=== PATIENT | male | born 1980 | race Caucasian/White ===

== ENCOUNTER 2017-11-10 19:30 | Inpatient (IN) ==
[2017-11-10] MEDS ORDERED: 0.9 % Sodium Chloride 1,000 ML IVC ONE (20:00)
[2017-11-10] MEDS ORDERED: *HR* FentaNYL (PF) 100 MCG/2 ML VIAL IVP ONE ×2 (20:02→23:56)
[2017-11-10 20:23] LABS: Basophils # 0.1 K/mcL (0.0-0.2); Basophils % 0.5 %; Eosinophils # 0.1 K/mcL (0.0-0.6); Eosinophils % 0.8 %; Hematocrit 42.5 % (37.5-50.1); Hemoglobin 14.4 g/dL (12.9-16.9); Immature Granulocytes % 0.7 % (0-4); Lymphocytes % 16.7 %; Mean Corpuscular HGB Conc 33.9 g/dL (31.6-35.5); Mean Corpuscular Hemoglobin 31.3 pg (28.0-33.3); Mean Corpuscular Volume 92.4 fL (83.0-100.0); Mean Platelet Volume 9.7 fL (9.4-12.4); Monocytes # 0.6 K/mcL (0.0-1.3); Monocytes % 4.8 %; Neutrophils # 9.4 K/mcL (1.6-8.9); Platelet Count 279 K/mcL (140-400); Red Cell Distribution Width 12.2 % (11.5-14.5); Segmented Neutrophils % 76.5 %
--- NOTE | 2017-11-10 20:41 | Emergency Department Note ---
Disposition Clinical Impression: Cellulitis of right foot Disposition: Still a Patient Referrals: NONE,PCP [Non-Partnered Physician] - Forms: ED Satisfaction Letter General Adult HPI - General Chief complaint: ED Extremity Problem,Nontraumatic Stated complaint: R gangrene foot Time Seen by Provider: 11/10/17 19:39 Source: patient Mode of arrival: ambulatory Limitations: no limitations Nursing Notes Reviewed: Yes Vital Signs Reviewed: Yes - History of Present Illness HPI Narrative: Patient is a 37-year-old male with a past medical history of type 1 diabetes presenting to the emergency department with complaint of foot wounds on his right foot that of been progressively worsening over the past week. Patient states that they start out as small open areas been slowly have increased in size and began to drain. His attempted to take care of them at home. States this is the first time that this has happened. Denies any fevers or chills however admits to occasional nausea. He states that he was seen at an outside facility yesterday in which they wanted to start an IV on him and can initiate IV antibiotics however that a difficult time starting an IV and the patient left. He denies any IV drug use. Pain Scale: 10 - Related Data Allergies Allergy/AdvReac Type Severity Reaction Status Date / Time Penicillins [PCN] Allergy Rash Verified 06/05/16 17:59 morphine AdvReac See Verified 11/10/17 19:37 Comments All systems ED: reviewed and negative except as stated. Review of Systems: As Per HPI Constitutional: Denies: fever, chills Cardiovascular: Denies: chest pain, palpitations Respiratory: Denies: cough, dyspnea, wheezes Gastrointestinal: Denies: abdominal pain, nausea, vomiting Genitourinary: Denies: urgency, dysuria Musculoskeletal: Denies: back pain, neck pain Integumentary: Reports: lesions (2 lesions on his right foot on the dorsal aspect and the medial aspect). Denies: rash, abrasion Neurological: Denies: headache, weakness Past Medical History - Past Medical History Attestation: Yes The following information was validated with the patient. Medical history: Reports: diabetes, other Psychiatric history: Reports: no psych history - Social History Smoking Status: Current every day smoker Smokeless Tobacco Status: No Alcohol use: Reports: rarely Drug use: Reports: none Physical Exam CONSTITUTIONAL: Alert and oriented X3, well appearing, in no apparent distress. HEAD: Normocephalic; atraumatic. EYES: PERRL, no scleral icterus. NOSE: The nose is normal in appearance without rhinorrhea RESP: Normal chest excursion with respiration; breath sounds clear and equal bilaterally; no wheezes, rhonchi, or rales CARD: Regular rhythm, without murmurs, rub or gallop ABD: Non-distended; non-tender, soft,without rigidity, rebound or guarding SKIN: Normal for age and race; warm and dry; patient has 2 approximately 2 x 2 centimeter lesions one on the dorsal aspect of his foot distally and the other on the medial aspect of his foot that are open, with drainage and a follow-up odor. He has no red streaking or erythema surrounding these regions. - General Limitations: no limitations General appearance: alert, in no apparent distress Course Course Narrative: Plan at this time is to initiate the sepsis protocol. A repeat temperature showed the patient to be febrile. Multiple attempts were required to find an IV that would not below. At this time the patient was initiated on a fluid bolus, since his blood pressure is currently stable there are no plans at this time to do the 30 mL/kgnormal saline fluids. Patient will be started on broad- spectrum antibiotics for diabetic foot ulcer. I do have a mild suspicion that this wound could possibly be from IV drug use given how difficult it is for the nurses to establish an IV. We will also obtain cultures. CT scan of the foot with contrasts also be performed and most likely a podiatry consult. Vital Signs Temperature 99.6 F 11/10/17 19:34 Pulse Rate 90 11/10/17 19:34 Respiratory Rate 18 11/10/17 19:34 Blood Pressure 127/81 11/10/17 19:34 O2 Sat by Pulse Oximetry 99 11/10/17 19:34 Temperature 99.6 F 11/10/17 19:34 Pulse Rate 90 11/10/17 19:34 Respiratory Rate 18 11/10/17 19:34 Blood Pressure 127/81 11/10/17 19:34 O2 Sat by Pulse Oximetry 99 11/10/17 19:34 Oxygen Delivery Oxygen Delivery Room Air Medical Decision Making - Medical Records Medical records reviewed: Yes I reviewed the patient's medical records. - Lab Data Lab results reviewed: Yes I reviewed the patient's lab results. Result diagrams: 11/10/17 20:12 11/10/17 20:12 Lab Results 11/10/17 11/10/17 11/10/17 Range/Units 20:12 20:12 20:12 WBC 12.2 H (4.3-11.1) K/mcL RBC 4.60 (4.19-5.50) M/mcL Hgb 14.4 (12.9-16.9) g/dL Hct 42.5 (37.5-50.1) % MCV 92.4 (83.0-100.0) fL MCH 31.3 (28.0-33.3) pg MCHC 33.9 (31.6-35.5) g/dL RDW 12.2 (11.5-14.5) % Plt Count 279 (140-400) K/mcL MPV 9.7 (9.4-12.4) fL Immature Gran % 0.7 (0-4) % Seg Neutrophils % 76.5 % Lymphocytes % 16.7 % Monocytes % 4.8 % Eosinophils % 0.8 % Basophils % 0.5 % Neutrophils # 9.4 H (1.6-8.9) K/mcL Lymphocytes # 2.0 (0.6-4.6) K/mcL Monocytes # 0.6 (0.0-1.3) K/mcL Eosinophils # 0.1 (0.0-0.6) K/mcL Basophils # 0.1 (0.0-0.2) K/mcL Sodium 130 L (136-145) mEq/L Potassium 4.9 (3.5-5.1) mEq/L Chloride 91 L (98-107) mEq/L Carbon Dioxide 27 (23-29) mEq/L BUN 11 (6-20) mg/dL Creatinine 0.65 L (0.70-1.30) mg/dL Est GFR ( Amer) > 60 (> 60) Est GFR (Non-Af Amer) > 60 (> 60) BUN/Creatinine Ratio 17 (6-26) Glucose 470 H (70-105) mg/dL Calculated Osmolality 290 (280-300) Lactic Acid 1.3 (0.5-2.2) mmol/L Calcium 9.2 (8.6-10.3) mg/dL Phosphorus 2.2 L (2.7-4.5) mg/dL Magnesium 1.8 (1.6-2.6) mg/dL
[2017-11-10 20:42] LABS: BUN/Creatinine Ratio 17 (6-26); Blood Urea Nitrogen 11 mg/dL (6-20); Calcium 9.2 mg/dL (8.6-10.3); Carbon Dioxide 27 mEq/L (23-29); Chloride 91 mEq/L (98-107); Glucose 470 mg/dL (70-105); Magnesium 1.8 mg/dL (1.6-2.6); Osmolality,Calculated 290 (280-300); Phosphorous 2.2 mg/dL (2.7-4.5); Potassium 4.9 mEq/L (3.5-5.1); Sodium 130 mEq/L (136-145); eGFR For African Americans > 60 (> 60); eGFR For Non-African Americans > 60 (> 60)
--- NOTE | 2017-11-10 21:08 | Emergency Department Note ---
Disposition Clinical Impression: Cellulitis of right foot Disposition: Still a Patient Referrals: NONE,PCP [Non-Partnered Physician] - Forms: ED Satisfaction Letter General Adult HPI - General Chief complaint: ED Extremity Problem,Nontraumatic Stated complaint: R gangrene foot Time Seen by Provider: 11/10/17 19:39 Source: patient Limitations: no limitations - History of Present Illness Pain Scale: 10 - Related Data Allergies Allergy/AdvReac Type Severity Reaction Status Date / Time Penicillins [PCN] Allergy Rash Verified 06/05/16 17:59 morphine AdvReac See Verified 11/10/17 19:37 Comments Past Medical History - Past Medical History Medical history: Reports: diabetes, other Psychiatric history: Reports: no psych history - Social History Smoking Status: Current every day smoker Smokeless Tobacco Status: No Alcohol use: Reports: rarely Drug use: Reports: none Physical Exam - General Limitations: no limitations General appearance: alert, in no apparent distress Course Vital Signs Temperature 99.6 F 11/10/17 19:34 Pulse Rate 90 11/10/17 19:34 Respiratory Rate 18 11/10/17 19:34 Blood Pressure 127/81 11/10/17 19:34 O2 Sat by Pulse Oximetry 99 11/10/17 19:34 Temperature 99.6 F 11/10/17 19:34 Pulse Rate 90 11/10/17 19:34 Respiratory Rate 18 11/10/17 19:34 Blood Pressure 127/81 11/10/17 19:34 O2 Sat by Pulse Oximetry 99 11/10/17 19:34 Oxygen Delivery Oxygen Delivery Room Air Medical Decision Making - Lab Data Result diagrams: 11/10/17 20:12 11/10/17 20:12 Lab Results 11/10/17 11/10/17 11/10/17 Range/Units 20:12 20:12 20:12 WBC 12.2 H (4.3-11.1) K/mcL RBC 4.60 (4.19-5.50) M/mcL Hgb 14.4 (12.9-16.9) g/dL Hct 42.5 (37.5-50.1) % MCV 92.4 (83.0-100.0) fL MCH 31.3 (28.0-33.3) pg MCHC 33.9 (31.6-35.5) g/dL RDW 12.2 (11.5-14.5) % Plt Count 279 (140-400) K/mcL MPV 9.7 (9.4-12.4) fL Immature Gran % 0.7 (0-4) % Seg Neutrophils % 76.5 % Lymphocytes % 16.7 % Monocytes % 4.8 % Eosinophils % 0.8 % Basophils % 0.5 % Neutrophils # 9.4 H (1.6-8.9) K/mcL Lymphocytes # 2.0 (0.6-4.6) K/mcL Monocytes # 0.6 (0.0-1.3) K/mcL Eosinophils # 0.1 (0.0-0.6) K/mcL Basophils # 0.1 (0.0-0.2) K/mcL Sodium 130 L (136-145) mEq/L Potassium 4.9 (3.5-5.1) mEq/L Chloride 91 L (98-107) mEq/L Carbon Dioxide 27 (23-29) mEq/L BUN 11 (6-20) mg/dL Creatinine 0.65 L (0.70-1.30) mg/dL Est GFR ( Amer) > 60 (> 60) Est GFR (Non-Af Amer) > 60 (> 60) BUN/Creatinine Ratio 17 (6-26) Glucose 470 H (70-105) mg/dL Calculated Osmolality 290 (280-300) Lactic Acid 1.3 (0.5-2.2) mmol/L Calcium 9.2 (8.6-10.3) mg/dL Phosphorus 2.2 L (2.7-4.5) mg/dL Magnesium 1.8 (1.6-2.6) mg/dL Attestation Statement - Attestation Attestation: I examined this patient and my medical decision-making was reviewed with the Resident Physician. I agree with the documented findings, disposition and treatment plan as described except to the extent set forth below. 37 year old male presents to the ED with complaints of right foot infection. He is a type 1 Diabetic and denies puntcture wound or IVDA but has two areas on his right foot one under the medial and lateral malleolus which has increased whitish/green dischage and is febrile to 100.5. wEw ill start sepsis workup and IVF resusitiation with vanco/zosyn therapy and tylenol and admit to medicine with podiatry consult
[2017-11-10] MEDS ORDERED: MetroNIDAZOLE 500 MG/100 ML 500 MG/100 ML BAG IVPB ONE (21:10)
[2017-11-10] MEDS ORDERED: Levofloxacin 750 MG/150 ML 750 MG/150 ML BAG IVPB ONE (21:10)
[2017-11-10] MEDS ORDERED: Acetaminophen 325 MG TABLET PO ONE (21:11)
[2017-11-10] MEDS ORDERED: Insulin Regular, Human 100 UNIT/ML SQ ONE (23:55)
--- NOTE | 2017-11-11 00:20 | Emergency Department Note ---
Disposition Clinical Impression: Cellulitis of right foot Disposition: Admitted As Inpatient Condition: Good Instructions: Cellulitis (ED) Referrals: NONE,PCP [Non-Partnered Physician] - Forms: ED Satisfaction Letter Time of Disposition: 12:00 Extremity Problem HPI - General Chief complaint: ED Extremity Problem,Nontraumatic Stated complaint: R gangrene foot Time Seen by Provider: 11/10/17 19:39 Source: patient Mode of arrival: ambulatory Limitations: no limitations Nursing Notes Reviewed: Yes Vital Signs Reviewed: Yes - History of Present Illness Pain Scale: 7 - Related Data Allergies Allergy/AdvReac Type Severity Reaction Status Date / Time Penicillins [PCN] Allergy Rash Verified 06/05/16 17:59 morphine AdvReac See Verified 11/10/17 19:37 Comments Constitutional: Denies: fever, chills Cardiovascular: Denies: chest pain, palpitations Respiratory: Denies: cough, dyspnea, wheezes Gastrointestinal: Denies: abdominal pain, nausea, vomiting Genitourinary: Denies: urgency, dysuria Musculoskeletal: Denies: back pain, neck pain Integumentary: Reports: lesions (2 lesions on his right foot on the dorsal aspect and the medial aspect). Denies: rash, abrasion Neurological: Denies: headache, weakness Past Medical History - Past Medical History Medical history: Reports: diabetes, other Psychiatric history: Reports: no psych history - Social History Smoking Status: Current every day smoker Smokeless Tobacco Status: No Alcohol use: Reports: rarely Drug use: Reports: none Physical Exam - General Limitations: no limitations General appearance: alert, in no apparent distress Course Vital Signs Temperature 99.6 F 11/10/17 19:34 Pulse Rate 90 11/10/17 19:34 Respiratory Rate 18 11/10/17 19:34 Blood Pressure 127/81 11/10/17 19:34 O2 Sat by Pulse Oximetry 99 11/10/17 19:34 Temperature 99.8 F H 11/10/17 23:51 Pulse Rate 94 11/10/17 23:51 Respiratory Rate 18 11/10/17 23:51 Blood Pressure 137/79 11/10/17 23:51 O2 Sat by Pulse Oximetry 97 11/10/17 23:51 Oxygen Delivery Oxygen Delivery Room Air Extremity Problem, Nontraumati - MDM Narrative Medical decision making narrative: 37-year-old male received in sign out at [address] results, reevaluation and disposition. CT shows cellulitis without evidence of osteomyelitis or drainable abscess. Patient already received vancomycin, Levaquin and Flagyl IV. Patient comfortable with the plan for admission to the hospital for continuation of his care. Patient is hyperglycemic however he does not have an anion gap. Patient given insulin subcutaneous in the emergency department. He will be admitted for further care and evaluation. - Lab Data Result diagrams: 11/10/17 20:12 11/10/17 20:12 Lab Results 11/10/17 11/10/17 11/10/17 Range/Units 20:12 20:12 20:12 WBC 12.2 H (4.3-11.1) K/mcL RBC 4.60 (4.19-5.50) M/mcL Hgb 14.4 (12.9-16.9) g/dL Hct 42.5 (37.5-50.1) % MCV 92.4 (83.0-100.0) fL MCH 31.3 (28.0-33.3) pg MCHC 33.9 (31.6-35.5) g/dL RDW 12.2 (11.5-14.5) % Plt Count 279 (140-400) K/mcL MPV 9.7 (9.4-12.4) fL Immature Gran % 0.7 (0-4) % Seg Neutrophils % 76.5 % Lymphocytes % 16.7 % Monocytes % 4.8 % Eosinophils % 0.8 % Basophils % 0.5 % Neutrophils # 9.4 H (1.6-8.9) K/mcL Lymphocytes # 2.0 (0.6-4.6) K/mcL Monocytes # 0.6 (0.0-1.3) K/mcL Eosinophils # 0.1 (0.0-0.6) K/mcL Basophils # 0.1 (0.0-0.2) K/mcL Sodium 130 L (136-145) mEq/L Potassium 4.9 (3.5-5.1) mEq/L Chloride 91 L (98-107) mEq/L Carbon Dioxide 27 (23-29) mEq/L BUN 11 (6-20) mg/dL Creatinine 0.65 L (0.70-1.30) mg/dL Est GFR ( Amer) > 60 (> 60) Est GFR (Non-Af Amer) > 60 (> 60) BUN/Creatinine Ratio 17 (6-26) Glucose 470 H (70-105) mg/dL Calculated Osmolality 290 (280-300) Lactic Acid 1.3 (0.5-2.2) mmol/L Calcium 9.2 (8.6-10.3) mg/dL Phosphorus 2.2 L (2.7-4.5) mg/dL Magnesium 1.8 (1.6-2.6) mg/dL
[2017-11-11] MEDS ORDERED: Acetaminophen 325 MG TABLET PO PRN (00:46)
[2017-11-11] MEDS ORDERED: Naloxone 0.4 MG/ML INJ IVP PRN (00:46)
[2017-11-11] MEDS ORDERED: D5% in Water 1,000 ML IVC PRN (00:58)
[2017-11-11] MEDS ORDERED: Dextrose Gel 15 GM PO PRN ×2 (00:58)
[2017-11-11] MEDS ORDERED: *HR* Dextrose 50 % in Water (Syg) 50 ML SYRINGE IVP PRN (00:58)
[2017-11-11] MEDS ORDERED: 0.9 % Sodium Chloride 1,000 ML IVC SCH (01:00)
[2017-11-11] MEDS ORDERED: Vancomycin (wt based) 1,000 MG VIAL IVPB SCH (01:00)
[2017-11-11 01:01] LABS: Bilirubin,Urine Negative (Negative); Blood,Urine Negative (Negative); Clarity,Urine Clear (Clear); Color,Urine Yellow (Yellow); Glucose,Urine (UA) >=1000 mg/dL (Normal); Ketones,Urine >=160 mg/dL (Negative); Leukocyte Esterase,Urine Negative (Negative); Nitrite,Urine Negative (Negative); Protein,Urine Negative (Neg-Trace); Specific Gravity,Urine > 1.030 (1.010-1.025); Urobilinogen,Urine Normal (Normal)
--- NOTE | 2017-11-11 01:17 | Internal Med History&Physical ---
<MatthewRoman Marva - Last Filed: 11/11/17 04:00> Date of Encounter: 11/11/17 Time of Encounter: 00:10 Assessment and Plan (1) Sepsis Current visit: Yes Status: Acute 2 SIRS criteria: HR and leukocytosis. Source of infection: right LE cellulitis CT of the right foot shows ulceration around the head of the fifth metatarsal, consistent with cellulitis. No fluid or osseous erosion to suggest osteomyelitis CBC shows mild leukocytosis at 12.2. Highest temp 99.8. HR 90's. No tachypnea or hypotension. Lactic acid normal. No Hypotension. Blood cultures pending Patient received vancomycin, Levaquin, and Flagyl in the emergency department Will continue vancomycin and provide pain medication Qualifiers: Sepsis type: sepsis due to unspecified organism Qualified Code(s): A41.9 - Sepsis, unspecified organism (2) Cellulitis of right foot Current visit: Yes Status: Acute 2 wounds of the right foot that are progressively getting worse over the past week, source of infection for sepsis Continue antibiotics as above Will let primary team decide on further consults if necessary (3) Type 1 diabetes mellitus Current visit: Yes Status: Acute Blood glucose in the emergency department is 470. Patient received 10 units of regular Insulin and BG decreased to 300 Pt states he has not had insurance for a long time, therefore he is not been treating his diabetes properly He reports that his insulin dose varies, and he is unable to provide me specific numbers UA is positive for glucose and ketones. Sodium 130. Anion gap with corrected sodium is 18. However the patient is not acidotic with a bicarbonate of 27 Will check A1c and urine microalbumin Will place on weight based basal insulin and low-dose SSI Qualifiers: Diabetes mellitus complication status: with skin complications Diabetes mellitus complication detail: with foot ulcer Qualified Code(s): E10.621 - Type 1 diabetes mellitus with foot ulcer; L97.509 - Non-pressure chronic ulcer of other part of unspecified foot with unspecified severity; L97.509 - Non- pressure chronic ulcer of other part of unspecified foot with unspecified severity; L97.509 - Non-pressure chronic ulcer of other part of unspecified foot with unspecified severity; L97.509 - Non-pressure chronic ulcer of other part of unspecified foot with unspecified severity (4) DVT prophylaxis Current visit: Yes Status: Acute SCDs. Patient is young and lower risk for DVT. If he remains in the hospital longer than 24 hours, he may need pharmacologic prophylaxis Internal Medicine - H&P: HPI Chief complaint: Right foot wound infection Admitted From: Emergency Dept History of present illness: Mr. Iglesias is a 37 year old male with PMH of type 1 diabetes and tobacco use, presents the emergency department with concerns of a right foot wound infection. He states he first noticed the wounds about 1 week ago and they have progressively been getting worse over this time, with increasing size, pain and white/green discharge. He denies any trauma to the foot. He denies IV drug abuse. Associated symptoms include chills, diaphoresis, tingling in his toes, and nausea/vomiting. He denies fevers, loss of sensation, weakness, or inability to move his toes foot or ankle. He states he has never had anything like this before. He went to another hospital yesterday and they wanted to start IV antibiotics, but they had difficulty initiating the IV, so the patient left. He denies other symptoms, denies headache, change in vision, chest pain, dyspnea, cough, abdominal pain, change in bowels, or dysuria. Past Med Surg Social Fam HX - Past Medical History Medical history: diabetes, other Psychiatric history: no psych history - Social History Smoking Status: Current every day smoker Smokeless Tobacco Status: No Alcohol use: rarely Drug use: none Internal Medicine - H&P: Meds BuPROPion XL (24 HR) [Wellbutrin XL] 150 mg PO DAILY 11/11/17 [History] Buspirone HCl [Buspar] 10 mg PO BID 11/11/17 [History] Escitalopram [Lexapro] 5 mg PO DAILY 11/11/17 [History] Insulin ASPART [NovoLOG] 0 unit SQ TID PRN 11/11/17 [History] Insulin Glargine [Lantus] 40 unit IJ HS 11/11/17 [History] 3 Allergy/AdvReac Type Severity Reaction Status Date / Time Penicillins [PCN] Allergy Rash Verified 11/11/17 08:27 morphine AdvReac Anaphylaxis Verified 11/11/17 08:27 All Systems PM: A 10-system review of systems was performed and is negative for pertinent findings except as documented above in the HPI. - Constitutional Vitals: Temp Pulse Resp BP Pulse Ox 99.8 F H 94 19 143/84 97 11/10/17 23:51 11/10/17 23:51 11/11/17 00:38 11/11/17 00:38 11/10/17 23:51 General appearance: Present: mild distress, A&O X 3 Exam: Diaphoretic - Head Head exam: Present: atraumatic, normocephalic - Eye Eye exam: Present: conjuntiva pink, sclera anicteric - Neck Neck exam general surgery: Present: supple, trachea midline. Absent: lymphadenopathy - Respiratory Respiratory exam: Present: CTAB. Absent: accessory muscle use, rales, rhonchi, wheezes - Cardiovascular Cardiovascular exam: Present: RRR, +S1, +S2. Absent: diastolic murmur, systolic murmur - GI/Abdominal GI/Abdominal exam: Present: normal bowel sounds, soft, no peritoneal signs. Absent: distended, tenderness - Extremities Exam Extremities exam: Present: normal capillary refill, tenderness, warm, radial pulses palpable and symmetrical. Absent: calf tenderness, cyanotic, joint swelling, pedal edema Additional comments: Right foot with 2 wounds, one located on the medial aspect of the foot, and the other located on the dorsum of the foot. Both are approximately 2-3X2-3 cm in diameter, with warmth, swelling, and adjacent mild erythema. The wound on the medial aspect is draining a white colored discharge. No streaking or crepitus noted. He has normal motion and strength of his toes. - Neurological Exam Neurological exam: Present: CN II-XII intact, oriented X3, no focal deficits. Absent: facial droop, speech deficit - Skin Skin exam: Present: diaphoretic, dry Internal Med - H&P Results - Labs CBC & Chem 7: 11/10/17 20:12 11/10/17 20:12 Labs: Urine 11/11/17 Range/Units 00:52 Urine Color Yellow (Yellow) Urine Clarity Clear (Clear) Urine pH 6.0 (5.0-8.0) pH Units Ur Specific [place] > 1.030 H (1.010-1.025) Urine Protein Negative (Neg-Trace) mg/dL Urine Glucose (UA) >=1000 H (Normal) mg/dL <Olivia Dutta - Last Filed: 03/26/18 21:01> Date of Encounter: 11/10/17 Internal Medicine - H&P: HPI History of present illness: Mr. Iglesias is a 37 year old male All Systems PM: A 10-system review of systems was performed and is negative for pertinent findings except as documented above in the HPI. - Constitutional Vitals: Temp Pulse Resp BP Pulse Ox 98.2 F 71 16 136/75 100 11/11/17 19:49 11/11/17 19:49 11/11/17 19:49 11/11/17 19:49 11/11/17 19:49 Internal Med - H&P Results - Labs CBC & Chem 7: 11/11/17 05:07 11/11/17 13:00 Labs: Short CBC 11/11/17 Range/Units 05:07 WBC 12.0 H (4.3-11.1) K/mcL Hgb 14.2 (12.9-16.9) g/dL Hct 43.8 (37.5-50.1) % Plt Count 352 (140-400) K/mcL Neutrophils # 8.9 (1.6-8.9) K/mcL BMP 11/11/17 11/11/17 05:07 13:00 Sodium 130 L 132 L Potassium 4.9 3.8 Chloride 93 L 97 L Carbon Dioxide 17 L 28 BUN 11 10 Creatinine 0.72 0.67 L Glucose 451 H 148 H Calcium 8.7 9.0 Urine 11/11/17 Range/Units 00:52 Urine Color Yellow (Yellow) Urine Clarity Clear (Clear) Urine pH 6.0 (5.0-8.0) pH Units Ur Specific [place] > 1.030 H (1.010-1.025) Urine Protein Negative (Neg-Trace) mg/dL Urine Glucose (UA) >=1000 H (Normal) mg/dL - ABG Interpretation ABG results: 11/11/17 07:11 ABG pH 7.39 ABG pCO2 28 L ABG pO2 98 ABG HCO3 17 L ABG Total CO2 18 L ABG O2 Saturation 98 ABG Base Excess -6 L - Attending Attestation I personally and independently interviewed and examined the patient on with the resident. I reviewed the patient's medical record with the resident. I am in agreement with the resident assessment and proposed treatment plan. I have discussed my finding and recommendation with the patient and answer all questions. The formerly [facility] medical records was admitted to accurately reflect the encounter.
[2017-11-11] MEDS: *HR* OxyCODONE Immed Rel 5 MG TABLET PO PRN ×4 (02:00→21:00)
[2017-11-11 05:46] LABS: Basophils # 0.1 K/mcL (0.0-0.2); Basophils % 0.7 %; Eosinophils % 0.1 %; Hematocrit 43.8 % (37.5-50.1); Hemoglobin 14.2 g/dL (12.9-16.9); Immature Granulocytes % 1.6 % (0-4); Lymphocytes # 2.3 K/mcL (0.6-4.6); Lymphocytes % 18.9 %; Mean Corpuscular HGB Conc 32.4 g/dL (31.6-35.5); Mean Corpuscular Hemoglobin 30.5 pg (28.0-33.3); Mean Corpuscular Volume 94.2 fL (83.0-100.0); Mean Platelet Volume 10.2 fL (9.4-12.4); Monocytes # 0.5 K/mcL (0.0-1.3); Monocytes % 4.2 %; Neutrophils # 8.9 K/mcL (1.6-8.9); Nucleated Red Blood Cells 0.2 /100 WBC (0); Platelet Count 352 K/mcL (140-400); Red Blood Count 4.65 M/mcL (4.19-5.50); Red Cell Distribution Width 12.3 % (11.5-14.5); Segmented Neutrophils % 74.5 %
[2017-11-11] MEDS ORDERED: Insulin LISPRO 300 UNITS/3 ML VIAL SQ ONE (05:48)
[2017-11-11] MEDS ORDERED: Ondansetron 4 MG/2 ML VIAL IVP PRN (05:48)
[2017-11-11] MEDS ORDERED: OXYCODONE Oral CONC 10 MG/0.5 ML ORAL.SYG SL ONE (05:52)
[2017-11-11 05:57] LABS: BUN/Creatinine Ratio 15 (6-26); Blood Urea Nitrogen 11 mg/dL (6-20); Calcium 8.7 mg/dL (8.6-10.3); Carbon Dioxide 17 mEq/L (23-29); Chloride 93 mEq/L (98-107); Glucose 451 mg/dL (70-105); Osmolality,Calculated 289 (280-300); Potassium 4.9 mEq/L (3.5-5.1); Sodium 130 mEq/L (136-145); eGFR For African Americans > 60 (> 60); eGFR For Non-African Americans > 60 (> 60)
[2017-11-11] MEDS ORDERED: Insulin LISPRO 300 UNITS/3 ML VIAL SQ SCH (06:00)
[2017-11-11] MEDS ORDERED: Cefepime HCl 2,000 MG in Water for inj. (sterile) 20 ML IVP SCH (06:00)
[2017-11-11 07:18] LABS: ABG Base Excess -6 mEq/L (-2 to 3); ABG HCO3 17 mEq/L (21-27); ABG Oxygen Saturation 98 % (95-98); ABG PCO2 28 mmHg (35-45); ABG PH 7.39 pH Units (7.32-7.45); ABG PO2 98 mmHg (85-104); ABG TCO2 18 mEq/L (20-26)
[2017-11-11] MEDS ORDERED: Insulin DETEMIR 100 UNIT/ML X5UNITS SQ ONE (08:17)
[2017-11-11] MEDS ORDERED: Insulin LISPRO 300 UNITS/3 ML VIAL SQ STA (08:18)
[2017-11-11] MEDS: Insulin LISPRO 300 UNITS/3 ML VIAL SQ SCH ×6 (08:25→21:05)
--- NOTE | 2017-11-11 09:57 | Internal Med Progress Note ---
Date of Encounter: 11/11/17 Time of Encounter: 09:54 - Assessment and plan (1) Sepsis Current Visit: Yes Status: Acute Assessment and plan: sepsis secondary to right fuoo ulcer/acute cellulitis COntinue Vancomycin day #2, add cefepime Podiatry consult wound culture IVF Qualifiers: Sepsis type: sepsis due to unspecified organism Qualified Code(s): A41.9 - Sepsis, unspecified organism (2) Foot ulcer due to secondary DM Current Visit: Yes Status: Acute (3) Cellulitis of right foot Current Visit: Yes Status: Acute (4) Tobacco abuse Current Visit: Yes Status: Acute Assessment and plan: smoking cessation counseling , nicotine patch (5) Type 1 diabetes mellitus Current Visit: Yes Status: Acute Assessment and plan: continue with levemir 22 Units QHS add 8 units of humalog TID plus sliding scale B OH butiric acid pending recheck BMP Latest AG December start insulin drip Qualifiers: Diabetes mellitus complication status: with skin complications Diabetes mellitus complication detail: with foot ulcer Qualified Code(s): E10.621 - Type 1 diabetes mellitus with foot ulcer; L97.509 - Non-pressure chronic ulcer of other part of unspecified foot with unspecified severity; L97.509 - Non- pressure chronic ulcer of other part of unspecified foot with unspecified severity; L97.509 - Non-pressure chronic ulcer of other part of unspecified foot with unspecified severity; L97.509 - Non-pressure chronic ulcer of other part of unspecified foot with unspecified severity (6) Leukocytosis Current Visit: Yes Status: Acute Qualifiers: Leukocytosis type: unspecified Qualified Code(s): D72.829 - Elevated white blood cell count, unspecified - Subjective Interval history: Known quantified fevers at home, denies any chest pressures or breath, is tachycardic, denies any abdominal pain or dysuria. Complains of right foot pain - Constitutional Vitals: Temp Pulse Resp BP Pulse Ox 98.4 F 108 16 132/70 96 11/11/17 07:30 11/11/17 07:30 11/11/17 07:30 11/11/17 07:30 11/11/17 08:46 General appearance: Present: mild distress, A&O X 3 - Head Head exam: Present: atraumatic, normocephalic - Eye Eye exam: Present: PERRL, conjuntiva pink, sclera anicteric Pupils: Present: PERRL - Neck Neck exam general surgery: Present: supple, trachea midline. Absent: lymphadenopathy - Respiratory Respiratory exam: Present: CTAB. Absent: accessory muscle use, rales, rhonchi, wheezes - Cardiovascular Cardiovascular exam: Present: RRR, +S1, +S2, tachycardia. Absent: diastolic murmur, gallop, rubs, systolic murmur - GI/Abdominal GI/Abdominal exam: Present: normal bowel sounds, soft, no peritoneal signs. Absent: distended, tenderness - Extremities Exam Extremities exam: Present: warm, radial pulses palpable and symmetrical. Absent : calf tenderness, cyanotic, pedal edema Additional comments: right foot 3 x 2 cm ulcer with drainage and surrounding erythema - Neurological Exam Neurological exam: Present: CN II-XII intact, oriented X3, no focal deficits. Absent: pronater drift, facial droop, speech deficit - Skin Skin exam: Present: dry, intact Internal Medicine: Result - Labs CBC & Chem 7: 11/11/17 05:07 11/11/17 05:07 Labs: Short CBC 11/11/17 Range/Units 05:07 WBC 12.0 H (4.3-11.1) K/mcL Hgb 14.2 (12.9-16.9) g/dL Hct 43.8 (37.5-50.1) % Plt Count 352 (140-400) K/mcL Neutrophils # 8.9 (1.6-8.9) K/mcL BMP 11/11/17 05:07 Sodium 130 L Potassium 4.9 Chloride 93 L Carbon Dioxide 17 L BUN 11 Creatinine 0.72 Glucose 451 H Calcium 8.7 Urine 11/11/17 Range/Units 00:52 Urine Color Yellow (Yellow) Urine Clarity Clear (Clear) Urine pH 6.0 (5.0-8.0) pH Units Ur Specific [place] > 1.030 H (1.010-1.025) Urine Protein Negative (Neg-Trace) mg/dL Urine Glucose (UA) >=1000 H (Normal) mg/dL - ABG Interpretation ABG results: ABG ABG pH 7.39 pH Units (7.32-7.45) 11/11/17 07:11 ABG pCO2 28 mmHg (35-45) L 11/11/17 07:11 ABG pO2 98 mmHg (85-104) 11/11/17 07:11 ABG O2 Saturation 98 % (95-98) 11/11/17 07:11 Consult Discharge Plan - Plan Referrals: Gisele Valdez, [employer] TECHNICIAN [Primary Care Provider] -
[2017-11-11] MEDS ORDERED: Cefepime HCl 1,000 MG in Water for inj. (sterile) 10 ML IVP SCH (10:00)
[2017-11-11 10:27] LABS: Estimated Average Glucose 272 mg/dl; Hemoglobin A1C 11.1 %
[2017-11-11] MEDS: Nicotine 14 MG PATCH.TD24 TD SCH (11:27)
[2017-11-11] MEDS: Cefepime HCl 1,000 MG in Water for inj. (sterile) 20 ML 10 ML IVP SCH ×2 (11:27→17:22)
[2017-11-11] MEDS: 0.9 % Sodium Chloride 1,000 ML IVC SCH ×2 (12:05→17:39)
[2017-11-11] MEDS: traMADol 50 MG TABLET PO PRN (12:11)
[2017-11-11 12:48] LABS: Creatinine,Urine 64 mg/dL; Microalbumin,Urine < 7 mg/L
[2017-11-11 13:30] LABS: BUN/Creatinine Ratio 15 (6-26); Blood Urea Nitrogen 10 mg/dL (6-20); Carbon Dioxide 28 mEq/L (23-29); Chloride 97 mEq/L (98-107); Glucose 148 mg/dL (70-105); Osmolality,Calculated 276 (280-300); Potassium 3.8 mEq/L (3.5-5.1); Sodium 132 mEq/L (136-145); eGFR For African Americans > 60 (> 60); eGFR For Non-African Americans > 60 (> 60)
[2017-11-11] MEDS: *HR* Heparin 5,000 UNIT/ML VIAL SQ SCH (17:23)
[2017-11-11] MEDS: Insulin DETEMIR 100 UNIT/ML X5UNITS SQ SCH (21:01)
--- NOTE | 2017-11-11 21:40 | Podiatry Consult Note ---
Date of Encounter: 11/11/17 Time of Encounter: 21:37 Assessment and Plan (1) Cellulitis of right foot Current visit: Yes Status: Acute At this time the patient was instructed that he has significant necrotic tissue on both feet. The patient was instructed that the necrotic tissue is in need of debridement. The patient was also instructed to begin caring for his diabetes more appropriately and smoking less or quitting. Patient was instructed that his wounds will likely not heal unless he makes some major changes in his life. The patient was instructed that due to his current blood glucose and smoking his body is significantly inhibited and his immune system is weak and his potential for healing is also minimal. The patient was instructed that the surgical intervention would be irrigation and debridement of the ulceration sites with possible bone biopsy and application of wound VAC all right foot. The patient was instructed that this is a salvage procedure and that foot or leg amputation may be necessary if this is not successful. Patient was informed of the risks and complications of surgery. These may include but are not limited to the following; nerve damage, numbness, tingling, RSD/CRPS, loss of motor function, loss of toe, loss of limb, loss of life, ischemia, wound healing issues, infection, scarring, keloid formation, continued pain, arthritis, non-union, mal-union, prominent hardware, displaced hardware, reaction to hardware, the need to remove hardware, bruising, continued limp, the need for future surgery, over correction, under correction, chronic swelling, the need for physical therapy, stiffness of joints, ulceration , slow healing, wound dehiscence, reaction to implant, reaction to sutures. The patient was informed of the possible conservative treatments available which may include but are not limited to the following: Orthotics, bracing, non -weight bearing, physical therapy, padding, taping, steroid injections, NSAIDS, casting. The patient was given the option to seek a second opinion. It was explained that surgery is an art and not an exact science therefore results cannot be guaranteed. All the patients questions and concerns were addressed. Patient agrees to have the surgery despite the possible risks and complications. Absolutely no guarantees were given or implied. History of Present Illness Chief complaint: Right foot ulceration HPI: Mr. Iglesias is a 37 year old male who relates that he does not control his diabetes very well. The patient relates that he has had ulcers on his feet which have become more and more painful. Patient relates difficulty walking due to pain. Patient denies any other pedal complaints. Past Med Surg Social Fam HX - Past Medical History Medical history: diabetes, other Psychiatric history: no psych history - Social History Smoking Status: Current every day smoker Packs per day: 0.5 Smokeless Tobacco Status: No Alcohol use: rarely Drug use: none Medications and Allergies BuPROPion XL (24 HR) [Wellbutrin XL] 150 mg PO DAILY 11/11/17 [History] Buspirone HCl [Buspar] 10 mg PO BID 11/11/17 [History] Escitalopram [Lexapro] 5 mg PO DAILY 11/11/17 [History] Insulin ASPART [NovoLOG] 0 unit SQ TID PRN 11/11/17 [History] Insulin Glargine [Lantus] 40 unit IJ HS 11/11/17 [History] 3 Allergy/AdvReac Type Severity Reaction Status Date / Time Penicillins [PCN] Allergy Rash Verified 11/11/17 08:27 morphine AdvReac Anaphylaxis Verified 11/11/17 08:27 All Systems Reviewed: The remainder of the systems were reviewed and are negative Physical Exam - Constitutional Vitals: Temp Pulse Resp BP Pulse Ox 98.2 F 71 16 136/75 100 11/11/17 19:49 11/11/17 19:49 11/11/17 19:49 11/11/17 19:49 11/11/17 19:49 Exam: Pedal pulses are palpable. Capillary fill time is intact to the digits. There are 2 large ulcerations on the right foot, 1 near the medial malleolus and one near the metatarsal heads. Both the ulcerations are malodorous with periwound erythema. The ulcerations measure approximately 3 cm in diameter and have a boggy depth difficult to determine at this time. There is purulence from the ulcers. There is noted to be significant amounts of necrotic tissue overlying the ulcerations. Sensation significantly decreased consistent with peripheral neuropathy. Patient is able to dorsiflex and plantarflex his ankles and feet. Radiographic exam demonstrates tissue loss but no current osteomyelitis... please see official reports for details. Results - Labs Result Diagrams: 11/11/17 05:07 11/11/17 13:00 Labs: Abnormal lab results WBC 12.0 K/mcL (4.3-11.1) H 11/11/17 05:07 Nucleated RBCs/100 WBC 0.2 /100 WBC (0) H 11/11/17 05:07 ABG pCO2 28 mmHg (35-45) L 11/11/17 07:11 ABG HCO3 17 mEq/L (21-27) L 11/11/17 07:11 ABG Total CO2 18 mEq/L (20-26) L 11/11/17 07:11 ABG Base Excess -6 mEq/L (-2 to 3) L 11/11/17 07:11 Sodium 132 mEq/L (136-145) L 11/11/17 13:00 Chloride 97 mEq/L (98-107) L 11/11/17 13:00 Creatinine 0.67 mg/dL (0.70-1.30) L 11/11/17 13:00 Glucose 148 mg/dL (70-105) H 11/11/17 13:00 POC Glucose 182 (58-89) H 11/11/17 16:21 Hemoglobin A1c 11.1 % (-5.6) H 11/11/17 05:07 Calculated Osmolality 276 (280-300) L 11/11/17 13:00 Phosphorus 2.2 mg/dL (2.7-4.5) L 11/10/17 20:12 Beta-Hydroxybutyric Acd > 2.00 mmol/L (0.02-0.27) H 11/11/17 08:27 Ur Specific [place] > 1.030 (1.010-1.025) H 11/11/17 00:52 Urine Glucose (UA) >=1000 mg/dL (Normal) H 11/11/17 00:52 Urine Ketones >=160 mg/dL (Negative) H 11/11/17 00:52 H & H 11/11/17 Range/Units 05:07 Hgb 14.2 (12.9-16.9) g/dL Hct 43.8 (37.5-50.1) % All other labs normal. Consult Discharge Plan - Plan Referrals: Narcisa Hummel CNP [Partnered Physician] - 11/20/17 2:00 pm (Please bring your photo ID, insurance card, and any medications you are on. If you need to cancel please give a 24 hour notice. Thank you)
[2017-11-12] MEDS: 0.9 % Sodium Chloride 1,000 ML IVC SCH (00:29)
[2017-11-12] MEDS: *HR* OxyCODONE Immed Rel 5 MG TABLET PO PRN ×4 (03:29→22:37)
[2017-11-12] MEDS: Cefepime HCl 1,000 MG in Water for inj. (sterile) 20 ML 10 ML IVP SCH ×2 (05:31→18:56)
[2017-11-12] MEDS: *HR* Heparin 5,000 UNIT/ML VIAL SQ SCH ×2 (05:32→18:54)
[2017-11-12 06:23] LABS: Alanine Aminotransferase 26 Units/L (7-52); Albumin/Globulin Ratio 1.1 (1.1-2.2); Alkaline Phosphatase 68 Units/L (34-104); Aspartate Amino Transferase 28 Units/L (13-39); BUN/Creatinine Ratio 22 (6-26); Bilirubin,Total 0.5 mg/dL (0.3-1.0); Blood Urea Nitrogen 13 mg/dL (6-20); Calcium 8.5 mg/dL (8.6-10.3); Carbon Dioxide 21 mEq/L (23-29); Chloride 106 mEq/L (98-107); Globulin 2.8 g/dL (2.4-3.5); Glucose 123 mg/dL (70-105); Osmolality,Calculated 283 (280-300); Sodium 136 mEq/L (136-145); Total Protein 5.8 g/dL (6.4-8.9); eGFR For African Americans > 60 (> 60); eGFR For Non-African Americans > 60 (> 60)
[2017-11-12 06:24] LABS: Potassium 5.1 mEq/L (3.5-5.1)
[2017-11-12] MEDS: Insulin LISPRO 300 UNITS/3 ML VIAL SQ SCH ×7 (07:44→20:55)
[2017-11-12] MEDS: traMADol 50 MG TABLET PO PRN ×3 (07:50→20:55)
[2017-11-12] MEDS: Nicotine 14 MG PATCH.TD24 TD SCH (07:51)
[2017-11-12] MEDS: BuPROPion XL (24 HR) 150 MG TABLET PO SCH (07:51)
--- NOTE | 2017-11-12 13:53 | Internal Med Progress Note ---
Date of Encounter: 11/12/17 Time of Encounter: 13:51 - Assessment and plan (1) Sepsis Current Visit: Yes Status: Acute Assessment and plan: 2 SIRS criteria: HR and leukocytosis. Source of infection: right LE cellulitis CT of the right foot shows ulceration around the head of the fifth metatarsal, consistent with cellulitis. No fluid or osseous erosion to suggest osteomyelitis CBC shows mild leukocytosis at 12.2. Highest temp 99.8. HR 90's. No tachypnea or hypotension. Lactic acid normal. No Hypotension. Blood cultures pending Patient received vancomycin, Levaquin, and Flagyl in the emergency department - Currently hemodynamically stable. - Wound culture: Yeast growing. possibly contaminate - start Micafungin and DC if tissue biopsy comes back negative. - Blood culture 11/10/17: no growth to date. - Continue Vacomycin, Cefepime - Podiatry consulted, recommendations apprecaited. Likely to have irrigation and debridement of ulceration sites with wound VAC application. Qualifiers: Sepsis type: sepsis due to unspecified organism Qualified Code(s): A41.9 - Sepsis, unspecified organism (2) Cellulitis of right foot Current Visit: Yes Status: Acute (3) Foot ulcer due to secondary DM Current Visit: Yes Status: Acute (4) Leukocytosis Current Visit: Yes Status: Acute Qualifiers: Leukocytosis type: unspecified Qualified Code(s): D72.829 - Elevated white blood cell count, unspecified (5) Tobacco abuse Current Visit: Yes Status: Acute (6) Type 1 diabetes mellitus Current Visit: Yes Status: Acute Assessment and plan: evemir 22 Units QHS 8 units of humalog TID plus sliding scale Patient NPO - If patient is NPO at midnight then give 1/2 dose of Levemir (11 units) at night time. Qualifiers: Diabetes mellitus complication status: with skin complications Diabetes mellitus complication detail: with foot ulcer Qualified Code(s): E10.621 - Type 1 diabetes mellitus with foot ulcer; L97.509 - Non-pressure chronic ulcer of other part of unspecified foot with unspecified severity; L97.509 - Non- pressure chronic ulcer of other part of unspecified foot with unspecified severity; L97.509 - Non-pressure chronic ulcer of other part of unspecified foot with unspecified severity; L97.509 - Non-pressure chronic ulcer of other part of unspecified foot with unspecified severity (7) DVT prophylaxis Current Visit: Yes Status: Acute - Subjective Interval history: No acute events overnight. - Constitutional Vitals: Temp Pulse Resp BP Pulse Ox 98.9 F 58 14 127/70 100 11/12/17 11:22 11/12/17 11:22 11/12/17 11:22 11/12/17 11:22 11/12/17 11:22 General appearance: Present: A&O X 3, no acute distress Exam: - Head Head exam: Present: atraumatic, normocephalic - Eye Eye exam: Present: PERRL, conjuntiva pink, sclera anicteric Pupils: Present: PERRL - Neck Neck exam general surgery: Present: supple, trachea midline. Absent: lymphadenopathy - Respiratory Respiratory exam: Present: CTAB. Absent: accessory muscle use, rales, rhonchi, wheezes - Cardiovascular Cardiovascular exam: Present: RRR, +S1, +S2, tachycardia. Absent: diastolic murmur, gallop, rubs, systolic murmur - GI/Abdominal GI/Abdominal exam: Present: normal bowel sounds, soft, no peritoneal signs. Absent: distended, tenderness - Extremities Exam Extremities exam: Present: warm, radial pulses palpable and symmetrical. Absent : calf tenderness, cyanotic, pedal edema Additional comments: right foot 3 x 2 cm ulcer with drainage and surrounding erythema - Neurological Exam Neurological exam: Present: CN II-XII intact, oriented X3, no focal deficits. Absent: pronater drift, facial droop, speech deficit - Skin Skin exam: Present: dry, intact Internal Medicine: Result - Labs CBC & Chem 7: 11/11/17 05:07 11/12/17 05:13 Labs: BMP 11/12/17 05:13 Sodium 136 Potassium 5.1 D Chloride 106 Carbon Dioxide 21 L BUN 13 Creatinine 0.59 L Glucose 123 H Calcium 8.5 L Liver Function 11/12/17 Range/Units 05:13 Total Bilirubin 0.5 (0.3-1.0) mg/dL AST 28 (13-39) Units/L ALT 26 (7-52) Units/L Alkaline Phosphatase 68 (34-104) Units/L Albumin 3.0 L (3.5-5.7) g/dL - ABG Interpretation ABG results: ABG ABG pH 7.39 pH Units (7.32-7.45) 11/11/17 07:11 ABG pCO2 28 mmHg (35-45) L 11/11/17 07:11 ABG pO2 98 mmHg (85-104) 11/11/17 07:11 ABG O2 Saturation 98 % (95-98) 11/11/17 07:11 Consult Discharge Plan - Plan Referrals: Narcisa Hummel CNP [Partnered Physician] - 11/20/17 2:00 pm (Please bring your photo ID, insurance card, and any medications you are on. If you need to cancel please give a 24 hour notice. Thank you)
[2017-11-12 14:52] LABS: Basophils % 0.4 %; Eosinophils % 0.5 %; Hemoglobin 13.2 g/dL (12.9-16.9); Immature Granulocytes % 3.9 % (0-4); Lymphocytes # 1.9 K/mcL (0.6-4.6); Lymphocytes % 24.9 %; Mean Corpuscular HGB Conc 34.7 g/dL (31.6-35.5); Mean Platelet Volume 9.3 fL (9.4-12.4); Monocytes # 0.3 K/mcL (0.0-1.3); Monocytes % 4.4 %; Neutrophils # 5.1 K/mcL (1.6-8.9); Platelet Count 253 K/mcL (140-400); Red Blood Count 4.13 M/mcL (4.19-5.50); Red Cell Distribution Width 12.3 % (11.5-14.5); Segmented Neutrophils % 65.9 %
[2017-11-12] MEDS ORDERED: *HR* Midazolam HCl 2 MG/2 ML VIAL ONE (16:24)
[2017-11-12] MEDS ORDERED: Lidocaine -MPF 2% 2 ML VIAL ONE (16:24)
[2017-11-12] MEDS ORDERED: Dexamethasone 4 MG/ML VIAL ONE (16:24)
[2017-11-12] MEDS ORDERED: *HR* FentaNYL (PF) 100 MCG/2 ML VIAL ONE ×2 (16:24→18:01)
[2017-11-12] MEDS ORDERED: Ondansetron 4 MG/2 ML VIAL ONE (16:24)
[2017-11-12] MEDS ORDERED: *HR* Succinylcholine 200 MG/10 ML VIAL IVP ONE (16:24)
[2017-11-12] MEDS ORDERED: *HR* Propofol 200 MG/20 ML VIAL IVP ONE ×2 (16:25→17:45)
--- NOTE | 2017-11-12 16:32 | Anesthesia Evaluation PreOp ---
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 Received 8 units of regular insulin subq just prior to OR), GERD Anesthesia History: No Prior Anesthetic Complications, Past Anesthesia Alcohol Use: rarely Drug use: none, marijuana Medications and Allergies BuPROPion XL (24 HR) [Wellbutrin XL] 150 mg PO DAILY 11/11/17 [History] Buspirone HCl [Buspar] 10 mg PO BID 11/11/17 [History] Escitalopram [Lexapro] 5 mg PO DAILY 11/11/17 [History] Insulin ASPART [NovoLOG] 0 unit SQ TID PRN 11/11/17 [History] Insulin Glargine [Lantus] 40 unit IJ HS 11/11/17 [History] 3 Allergy/AdvReac Type Severity Reaction Status Date / Time Penicillins [PCN] Allergy Rash Verified 11/11/17 08:27 morphine AdvReac Anaphylaxis Verified 11/11/17 08:27 - Meds/Allergy Pre-op Review Medications Reviewed: Yes Allergies Reviewed: Yes Beta Blockers on Current Med List: No Anesthesia Results - Labs 11/12/17 14:40 11/12/17 05:13 - Imaging EKG: image reviewed (sinus rhythm) Anesthesia Exam Selected Entries 11/12/17 15:55 Temperature 98.2 F Pulse Rate 63 Respiratory Rate 14 Blood Pressure 131/79 O2 Sat by Pulse Oximetry 99 Weight: 86 kg NPO (# of Hours): over 8 hours - HEENT Pupil (Motor): Pupils equal Mallampati: II Teeth: Normal Oral Opening: Greater than 3 - Cardiac Rhythm: Regular Murmur: None - Pulmonary Breath Sounds: bilateral Clear Respiratory Effort: Symmetrical Anesthesia Assess/Plan ASA Score: 3 Modified Mario Scale for Level of Consciousness: Cooperative, oriented, and tranquil Anesthetic Plan: General Monitoring Plan: Standard Monitors Recovery Plan: PACU (Discussed GA, risks. Agreed to proceed.)
[2017-11-12] MEDS ORDERED: Albuterol 2.5 MG/3 ML NEBULIZER IH ONE (16:33)
[2017-11-12] MEDS ORDERED: Bupivacaine/Clonidine Syringe 1 EACH SYRINGE ONE (16:34)
[2017-11-12] MEDS ORDERED: Propofol 500 MG/50 ML INFUS..BTL ONE ×2 (17:14→17:30)
[2017-11-12] MEDS ORDERED: Lidocaine 1% 20 ML MDV ONE (17:33)
[2017-11-12] MEDS: Micafungin 100 MG in 0.9 % Sodium Chloride Mini Bag 100 ML IVPB SCH (18:59)
--- NOTE | 2017-11-12 19:46 | Electrocardiograph Report ---
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
[2017-11-12] MEDS: Insulin DETEMIR 100 UNIT/ML X5UNITS SQ SCH (20:55)
[2017-11-13] MEDS: *HR* OxyCODONE Immed Rel 5 MG TABLET PO PRN ×2 (04:37→12:23)
[2017-11-13] MEDS: Cefepime HCl 1,000 MG in Water for inj. (sterile) 20 ML 10 ML IVP SCH (04:38)
[2017-11-13] MEDS: *HR* Heparin 5,000 UNIT/ML VIAL SQ SCH ×2 (04:39→16:42)
[2017-11-13 06:28] LABS: Basophils # 0.1 K/mcL (0.0-0.2); Basophils % 0.4 %; Eosinophils % 0.1 %; Hematocrit 38.5 % (37.5-50.1); Hemoglobin 13.8 g/dL (12.9-16.9); Immature Granulocytes % 2.8 % (0-4); Lymphocytes # 2.6 K/mcL (0.6-4.6); Lymphocytes % 20.3 %; Mean Corpuscular HGB Conc 35.8 g/dL (31.6-35.5); Mean Corpuscular Hemoglobin 31.9 pg (28.0-33.3); Mean Corpuscular Volume 88.9 fL (83.0-100.0); Mean Platelet Volume 10.5 fL (9.4-12.4); Monocytes # 0.7 K/mcL (0.0-1.3); Monocytes % 5.1 %; Neutrophils # 9.2 K/mcL (1.6-8.9); Platelet Count 203 K/mcL (140-400); Red Blood Count 4.33 M/mcL (4.19-5.50); Red Cell Distribution Width 11.9 % (11.5-14.5); Segmented Neutrophils % 71.3 %
[2017-11-13] MEDS: Micafungin 100 MG in 0.9 % Sodium Chloride Mini Bag 100 ML IVPB SCH (08:20)
[2017-11-13] MEDS: Nicotine 14 MG PATCH.TD24 TD SCH (08:21)
[2017-11-13] MEDS: BuPROPion XL (24 HR) 150 MG TABLET PO SCH (08:22)
[2017-11-13] MEDS: Insulin LISPRO 300 UNITS/3 ML VIAL SQ SCH ×6 (08:25→16:42)
[2017-11-13 11:03] LABS: BUN/Creatinine Ratio 17 (6-26); Blood Urea Nitrogen 11 mg/dL (6-20); Calcium 8.6 mg/dL (8.6-10.3); Carbon Dioxide 30 mEq/L (23-29); Chloride 95 mEq/L (98-107); Glucose 199 mg/dL (70-105); Osmolality,Calculated 279 (280-300); Potassium 3.5 mEq/L (3.5-5.1); Sodium 132 mEq/L (136-145); eGFR For African Americans > 60 (> 60); eGFR For Non-African Americans > 60 (> 60)
--- NOTE | 2017-11-13 12:37 | Operative Note ---
Date of procedure: 11/12/17 Pre-op diagnosis: Right foot ulcerations/abscesses Post-op diagnosis: same Procedure: Complicated irrigation and debridement/incision and drainage of abscess of the right foot. Complicated irrigation and debridement/incision and drainage of abscess of right ankle. Implants: Wound VAC application Complications: None Anesthesia: [facility] Surgeon: Lico Stokes Was there an assistant men's soccer coach present: No Estimated blood loss (cc): 15 Specimen: Cultures were obtained from both wounds. Condition: stable Disposition: floor Procedure in Detail: The patient was administered IV antibiotics. The patient was transported to the operative room and placed on operating table. Following anesthesia the extremity was scrubbed prepped and draped in the usual aseptic fashion. A timeout was performed. The lower extremity was raised to 60 degrees for hemostasis and exsanguinated utilizing an Esmarch bandage. The pneumatic tourniquet was inflated. The leg was lowered to the table. An incision was made and deepened through subcutaneous tissue with care taken to identify and retract all vital neurovascular structures. The first incision was made at the lateral forefoot ulceration site which measured 3 cm in diameter and was a full-thickness depth of 3 mm that went right down to the tendon. The abscess and purulence was debrided along with any nonviable necrotic tissue. The complicated debridement consisted of epidermis, dermis, subcutaneous, tendon. After adequate debridement was performed utilizing the misonix debrider the site was irrigated with copious amounts of saline. The attention was then directed to the ulceration on the medial aspect of the right ankle. The ulceration measured approximately 4 cm in diameter and was full-thickness in depth. There is noted to be muscle belly exposed on the plantar area of the incision. Incision and drainage was performed after which a complicated debridement performed consisting of dermis, epidermis, subcutaneous, tendon, muscle. Cultures were obtained of any purulent tissue on either site. The misonix debrider was utilized to adequately debride the site. The incision site was irrigated with copious amounts of normal saline , a wound VAC was applied to both sites and bridged. A dry sterile dressing was applied. The pneumatic tourniquet was deflated and a hyperemic response was noted to all digits. The patient tolerated the procedure and anesthesia well and was transported to the recovery room with vital signs stable and vascular status intact to both feet. The patient will be readmitted to the floor per anesthesia. The patient will need to remain minimally weightbearing. Patient will also likely need a surgical shoe. The patient will need at least 2 weeks of oral antibiotic therapy area the patient will need to follow up 1 week after discharge. The patient will need wound VAC changes every 2-3 days.
--- NOTE | 2017-11-13 12:45 | Podiatry Progress Note ---
Date of Encounter: 11/13/17 Time of Encounter: 12:15 - Assessment and Plan (1) Cellulitis of right foot Current Visit: Yes Status: Acute S/p Complicated irrigation and debridement/incision and drainage of abscess of the right foot. Complicated irrigation and debridement/incision and drainage of abscess of right ankle by Dr. Stokes on 11/12/17. WBC: 12.9, a febrile Wound cultures pending. Plan: Continue wound vac to ulcer or right medial ankle and lateral right foot. Small back simplace wound vac sponge, prep all surrounding skin with Allkar skin barrier prep pads, bridge sponge across dorsum of foot to connect ulceration from lateral right foot to the ulceration of the medial right ankle, connected to 125 mmhg continuous suction. Wound vac to be changed every -W-. Home health care needed for wound vac therapy. The patient will need to remain minimally weight bearing with a surgical shoe. The patient will need at least 2 weeks of oral antibiotic therapy. Follow up in Podiatry clinic with Dr. Stokes 1 week after discharge. (2) Type 1 diabetes mellitus Current Visit: Yes Status: Acute Qualifiers: Diabetes mellitus complication status: with skin complications Diabetes mellitus complication detail: with foot ulcer Qualified Code(s): E10.621 - Type 1 diabetes mellitus with foot ulcer; L97.509 - Non-pressure chronic ulcer of other part of unspecified foot with unspecified severity; L97.509 - Non- pressure chronic ulcer of other part of unspecified foot with unspecified severity; L97.509 - Non-pressure chronic ulcer of other part of unspecified foot with unspecified severity; L97.509 - Non-pressure chronic ulcer of other part of unspecified foot with unspecified severity Subjective Interval history: Patient is s/p complicated irrigation and debridement/incision and drainage of abscess of the right foot. Complicated irrigation and debridement/incision and drainage of abscess of right ankle by Dr. Stokes on 11/12/17. Wound vac intact to right foot with 15 mls of serosanguineous drainage observed to canister. Patient rates pain at an 8 out of 10, states the pain has been better since surgery. No c/o fever, chills, calf pain, cp, sob or flu like symptoms. Objective - Vital Signs Vital Signs: Vital Signs Temp Pulse Resp BP Pulse Ox 11/13/17 10:43 98.2 F 63 18 125/79 100 11/13/17 07:04 98.2 F 67 18 132/77 99 11/13/17 03:24 98.6 F 61 14 120/77 98 11/13/17 00:00 98.1 F 72 15 127/72 99 11/12/17 21:05 98.0 F 88 18 127/79 11/12/17 19:47 98.6 F 80 17 134/72 97 11/12/17 18:41 98.0 F 68 18 126/80 11/12/17 15:55 98.2 F 63 14 131/79 99 Intake and Output 11/12/17 11/13/17 11/13/17 23:59 07:59 15:59 Intake Total 100 / 100 710 / 710 480 / 480 Output Total 1465 / 1465 1450 / 1450 300 / 300 Balance -1365 / -1365 -740 / -740 180 / 180 Intake: IV Fluids 100 / 100 510 / 510 Maxipime 1,000 MG In Water for 10 / 10 inj. (sterile) 10 ML @ 150 mls/ hr IVP Q12HR ISHA Rx#:[id number] Mycamine 100 MG In 0.9 % Sodium 100 / 100 Chloride (Mini-Bag +) 100 ML @ 100 mls/hr IVPB DAILY ISHA Rx#: [id number] Vancocin 1,750 MG In 0.9 % 500 / 500 Sodium Chloride 500 ML @ 333.3 mls/hr IVPB Q12H ISHA Rx#: [id number] Oral 200 / 200 480 / 480 Output: Urine 1450 / 1450 1450 / 1450 300 / 300 Estimated Blood Loss 15 / 15 Wound Drainage 0 / 0 Right Foot 0 / 0 Other: Meal NPO Breakfast Percent of Meal Consumed 0% 100% Weight 85.5 kg Blood Glucose* 417 237 161 Patient Weight 11/13/17 23:59 Weight 85.5 kg - Exam Exam: General appearance: alert awake oriented X 3. Calm and pleasant, no acute distress.. Vascular: Pedal pulses +2/4 DP/PT , No evidence of cyanosis, pallor or rubor, Edema graded at 1+/4, Skin Temperature warm, No calf pain with manual compression. capillary refill time is immediate to digits. Neurologic: Sensation intact with light touch to foot. . Postop Exam: S/P wound vac intact to right foot connected to the ulcer of the medial right ankle and lateral right foot at the metatarsal head. Light periwound erythema, no pus, no odor, no streaking, no warmth, no fluctuance. 15 mls of serosanguineous drainage observed to canister. - Lab Result Diagrams: 11/13/17 05:59 11/13/17 10:08 Labs: Abnormal lab results WBC 12.9 K/mcL (4.3-11.1) H D 11/13/17 05:59 MCHC 35.8 g/dL (31.6-35.5) H 11/13/17 05:59 Neutrophils # 9.2 K/mcL (1.6-8.9) H 11/13/17 05:59 Nucleated RBCs/100 WBC 0.2 /100 WBC (0) H 11/11/17 05:07 ABG pCO2 28 mmHg (35-45) L 11/11/17 07:11 ABG HCO3 17 mEq/L (21-27) L 11/11/17 07:11 ABG Total CO2 18 mEq/L (20-26) L 11/11/17 07:11 ABG Base Excess -6 mEq/L (-2 to 3) L 11/11/17 07:11 Sodium 132 mEq/L (136-145) L 11/13/17 10:08 Chloride 95 mEq/L (98-107) L 11/13/17 10:08 Carbon Dioxide 30 mEq/L (23-29) H 11/13/17 10:08 Creatinine 0.64 mg/dL (0.70-1.30) L 11/13/17 10:08 Glucose 199 mg/dL (70-105) H 11/13/17 10:08 POC Glucose 161 (58-89) H 11/13/17 10:46 Hemoglobin A1c 11.1 % (-5.6) H 11/11/17 05:07 Calculated Osmolality 279 (280-300) L 11/13/17 10:08 Phosphorus 2.2 mg/dL (2.7-4.5) L 11/10/17 20:12 Serum Total Protein 5.8 g/dL (6.4-8.9) L 11/12/17 05:13 Albumin 3.0 g/dL (3.5-5.7) L 11/12/17 05:13 Beta-Hydroxybutyric Acd > 2.00 mmol/L (0.02-0.27) H 11/11/17 08:27 Ur Specific [place] > 1.030 (1.010-1.025) H 11/11/17 00:52 Urine Glucose (UA) >=1000 mg/dL (Normal) H 11/11/17 00:52 Urine Ketones >=160 mg/dL (Negative) H 11/11/17 00:52 Vancomycin Trough 6.8 mcg/mL (10-20) L 11/12/17 05:12 Consult Discharge Plan - Plan Referrals: Narcisa Hummel CNP [Partnered Physician] - 11/20/17 2:00 pm (Please bring your photo ID, insurance card, and any medications you are on. If you need to cancel please give a 24 hour notice. Thank you)
--- NOTE | 2017-11-13 13:38 | Internal Med Progress Note ---
Date of Encounter: 11/13/17 Time of Encounter: 13:36 - Assessment and plan (1) Sepsis Current Visit: Yes Status: Acute Assessment and plan: 2 SIRS criteria: HR and leukocytosis. Source of infection: right LE cellulitis CT of the right foot shows ulceration around the head of the fifth metatarsal, consistent with cellulitis. No fluid or osseous erosion to suggest osteomyelitis CBC shows mild leukocytosis at 12.2. Highest temp 99.8. HR 90's. No tachypnea or hypotension. Lactic acid normal. No Hypotension. Blood cultures pending Patient received vancomycin, Levaquin, and Flagyl in the emergency department - Currently hemodynamically stable. - Wound culture: Yeast growing. possibly contaminate - start Micafungin and DC if tissue biopsy comes back negative. - Blood culture 11/10/17: no growth to date. - Continue Vacomycin, Cefepime - 11/12 Complicated irrigation and debridement/incision and drainage of abscess of the right foot. Resolved - Increased WBC today likely stress response post procedure. - Transition to PO antibiotics, will discuss with Podiatry. Qualifiers: Sepsis type: sepsis due to unspecified organism Qualified Code(s): A41.9 - Sepsis, unspecified organism (2) Cellulitis of right foot Current Visit: Yes Status: Acute Assessment and plan: status-post Complicated irrigation and debridement/incision and drainage of abscess of the right foot and right ankle on 11/12. Wound cultures pending. Continue Vancomycin and Cefepime Wound VAC placed yesterday. To be changed M-W-F. Currently SW/ working on setup for home. (3) Foot ulcer due to secondary DM Current Visit: Yes Status: Acute (4) Leukocytosis Current Visit: Yes Status: Acute Assessment and plan: Initially likely sepsis, current increase likely post procedure Qualifiers: Leukocytosis type: unspecified Qualified Code(s): D72.829 - Elevated white blood cell count, unspecified (5) Tobacco abuse Current Visit: Yes Status: Acute (6) Type 1 diabetes mellitus Current Visit: Yes Status: Acute Assessment and plan: evemir 22 Units QHS 8 units of humalog TID plus sliding scale Patient NPO - If patient is NPO at midnight then give 1/2 dose of Levemir (11 units) at night time. Qualifiers: Diabetes mellitus complication status: with skin complications Diabetes mellitus complication detail: with foot ulcer Qualified Code(s): E10.621 - Type 1 diabetes mellitus with foot ulcer; L97.509 - Non-pressure chronic ulcer of other part of unspecified foot with unspecified severity; L97.509 - Non- pressure chronic ulcer of other part of unspecified foot with unspecified severity; L97.509 - Non-pressure chronic ulcer of other part of unspecified foot with unspecified severity; L97.509 - Non-pressure chronic ulcer of other part of unspecified foot with unspecified severity (7) DVT prophylaxis Current Visit: Yes Status: Acute - Subjective Interval history: No acute events. - Constitutional Vitals: Temp Pulse Resp BP Pulse Ox 98.2 F 63 18 125/79 100 11/13/17 10:43 11/13/17 10:43 11/13/17 10:43 11/13/17 10:43 11/13/17 10:43 General appearance: Present: A&O X 3, no acute distress Internal Medicine: Result - Labs CBC & Chem 7: 11/13/17 05:59 11/13/17 10:08 Labs: Short CBC 11/12/17 11/13/17 Range/Units 14:40 05:59 WBC 7.7 12.9 H D (4.3-11.1) K/mcL Hgb 13.2 13.8 (12.9-16.9) g/dL Hct 38.0 38.5 (37.5-50.1) % Plt Count 253 203 (140-400) K/mcL Neutrophils # 5.1 9.2 H (1.6-8.9) K/mcL BMP 11/13/17 10:08 Sodium 132 L Potassium 3.5 Chloride 95 L Carbon Dioxide 30 H BUN 11 Creatinine 0.64 L Glucose 199 H Calcium 8.6 - ABG Interpretation ABG results: ABG ABG pH 7.39 pH Units (7.32-7.45) 11/11/17 07:11 ABG pCO2 28 mmHg (35-45) L 11/11/17 07:11 ABG pO2 98 mmHg (85-104) 11/11/17 07:11 ABG O2 Saturation 98 % (95-98) 11/11/17 07:11 Consult Discharge Plan - Plan Referrals: Narcisa Hummel CNP [Partnered Physician] - 11/20/17 2:00 pm (Please bring your photo ID, insurance card, and any medications you are on. If you need to cancel please give a 24 hour notice. Thank you)
--- NOTE | 2017-11-13 18:01 | Discharge Summary ---
- NOTES TO OUTPATIENT PROVIDER Notes to Outpatient Provider: - Follow-up with primary care physician. - Follow -up with Podiatry as scheduled. Orders not resulted at time of discharge: Pending orders 11/12/17 18:14 Culture,Anaerobic [RM] Stat Culture,Wound [RM] Stat 11/14/17 04:00 BMP [Basic Metabolic Panel] AM 0400 Complete Blood Count [HEME] AM 0400 11/15/17 04:00 BMP [Basic Metabolic Panel] AM 0400 Complete Blood Count [HEME] AM 0400 11/16/17 04:00 BMP [Basic Metabolic Panel] AM 0400 Complete Blood Count [HEME] AM 0400 11/17/17 04:00 BMP [Basic Metabolic Panel] AM 0400 Complete Blood Count [HEME] AM 0400 Date of Encounter: 11/13/17 Time of Encounter: 17:56 - Discharge Diagnosis (1) Sepsis Priority: Primary Status: Resolved Qualifiers: Sepsis type: sepsis due to unspecified organism Qualified Code(s): A41.9 - Sepsis, unspecified organism (2) Cellulitis of right foot Priority: Secondary Status: Acute (3) Foot ulcer due to secondary DM Priority: Secondary Status: Acute (4) Leukocytosis Priority: Secondary Status: Acute Qualifiers: Leukocytosis type: unspecified Qualified Code(s): D72.829 - Elevated white blood cell count, unspecified (5) Tobacco abuse Priority: Secondary Status: Acute (6) Type 1 diabetes mellitus Priority: Secondary Status: Acute Qualifiers: Diabetes mellitus complication status: with skin complications Diabetes mellitus complication detail: with foot ulcer Qualified Code(s): E10.621 - Type 1 diabetes mellitus with foot ulcer; L97.509 - Non-pressure chronic ulcer of other part of unspecified foot with unspecified severity; L97.509 - Non- pressure chronic ulcer of other part of unspecified foot with unspecified severity; L97.509 - Non-pressure chronic ulcer of other part of unspecified foot with unspecified severity; L97.509 - Non-pressure chronic ulcer of other part of unspecified foot with unspecified severity (7) DVT prophylaxis Priority: Secondary Status: Acute Hospital course: Mr. Iglesias is a 37 year old male with PMH of type 1 diabetes and tobacco use, presents the emergency department with concerns of a right foot wound infection. He states he first noticed the wounds about 1 week ago and they have progressively been getting worse over this time, with increasing size, pain and white/green discharge. He denies any trauma to the foot. He denies IV drug abuse. Associated symptoms include chills, diaphoresis, tingling in his toes, and nausea/vomiting. He denies fevers, loss of sensation, weakness, or inability to move his toes foot or ankle. He went to another hospital yesterday and they wanted to start IV antibiotics, but they had difficulty initiating the IV, so the patient left. Patient was admitted for sepsis. CT of right foot showed ulceration around head of 5th metatarsal consistent with cellulitis. No fluid or osseous erosion was seen. In ED he received vancomycin, Levaquin and Flagyl. Podiatry was consulted. He was started on vancomycin and cefepime. Patient needed debridement of foot. Blood cultures done on 11/10 were no growth todate. Wound culture grew yeast which was likely contaminate. On 11/12 patient underwent cimplicated irrigation and debridement/incision and drainage of abscess of right foot. A wound vac was placed as well. He tolerated procedure without issue. He was hemodynamically stable without any issue. He was discharged home in stable condition with wound vac. Had nicotine patch rx to promote smoking cessation. He was discharged on Bactrim/Cipro to complete 2 weeks therapy. - Time Spent with Patient Total time spent providing and/or coordinating discharge services: - Discharge Medications Prescriptions: Ciprofloxacin [Cipro] 500 mg PO BID #28 tablet Nicotine Patch [Nicoderm] 14 mg TD DAILY #30 patch.td24 Sulfamethoxazole/Trimeth DS [Bactrim Ds] 1 each PO BID #28 tablet Home Medications: BuPROPion XL (24 HR) [Wellbutrin Xl] 150 mg PO DAILY 11/11/17 [History] Buspirone HCl [Buspar] 10 mg PO BID 11/11/17 [History] Escitalopram [Lexapro] 5 mg PO DAILY 11/11/17 [History] Insulin ASPART [NovoLOG] 0 unit SQ TID PRN 11/11/17 [History] Insulin Glargine [Lantus] 40 unit IJ HS 11/11/17 [History] Ciprofloxacin [Cipro] 500 mg PO BID #28 tablet 11/13/17 [Rx] Nicotine Patch [Nicoderm] 14 mg TD DAILY #30 patch.td24 11/13/17 [Rx] OxyCODONE/APAP 5/325 [Percocet 5/325 MG] 1 each PO Q8HR PRN 5 Days #15 tablet [Rx] Sulfamethoxazole/Trimeth DS [Bactrim Ds] 1 each PO BID #28 tablet 11/13/17 [Rx] Allergies/Adverse Reactions: 3 Allergy/AdvReac Type Severity Reaction Status Date / Time Penicillins [PCN] Allergy Rash Verified 11/11/17 08:27 morphine AdvReac Anaphylaxis Verified 11/11/17 08:27 Date of admission: 11/12/17 14:08 Primary care physician: Gisele Valdez, Discharging clinician: Ana Prince - Constitutional Vitals: Temp Pulse Resp BP Pulse Ox 98.4 F 65 18 127/72 99 11/13/17 14:36 11/13/17 14:36 11/13/17 14:36 11/13/17 14:36 11/13/17 14:36 General appearance: Present: A&O X 3, no acute distress - Head Head exam: Present: atraumatic, normocephalic - Eye Eye exam: Present: PERRL, conjuntiva pink, sclera anicteric Pupils: Present: PERRL - Neck Neck exam general surgery: Present: supple, trachea midline. Absent: lymphadenopathy - Respiratory Respiratory exam: Present: CTAB. Absent: accessory muscle use, rales, rhonchi, wheezes - Cardiovascular Cardiovascular exam: Present: RRR, +S1, +S2. Absent: diastolic murmur, gallop, rubs, systolic murmur - GI/Abdominal GI/Abdominal exam: Present: normal bowel sounds, soft, no peritoneal signs. Absent: distended, tenderness - Extremities Exam Extremities exam: Present: warm, radial pulses palpable and symmetrical. Absent : calf tenderness, cyanotic, pedal edema Additional comments: right foot wrapped, c/d/i dressing, wound vac in place. - Neurological Exam Neurological exam: Present: CN II-XII intact, oriented X3, no focal deficits. Absent: pronater drift, facial droop, speech deficit - Skin Skin exam: Present: dry, intact - Patient Status Disposition: Home Health Service Condition: Good Functional capacity at discharge: independent ambulation Overall status at discharge: patient is progressing back to baseline - Discharge Instructions Follow Up With: Narcisa Hummel CNP [Partnered Physician] - 11/20/17 2:00 pm (Please bring your photo ID, insurance card, and any medications you are on. If you need to cancel please give a 24 hour notice. Thank you) - Diet and Activity Activity: other (as instructed by Podiatry ) Diet: diabetic diet
--- NOTE | 2017-11-13 18:18 | Physician Discharge Referral ---
Home Health/Hosp Referral Info Transfer to: Home Health Provider in Charge Post Discharge: PCP - Diagnosis (1) Sepsis Priority: Primary Status: Resolved (2) Cellulitis of right foot Priority: Secondary Status: Acute (3) Foot ulcer due to secondary DM Priority: Secondary Status: Acute (4) Leukocytosis Priority: Secondary Status: Acute (5) Tobacco abuse Priority: Secondary Status: Acute (6) Type 1 diabetes mellitus Priority: Secondary Status: Acute (7) DVT prophylaxis Priority: Secondary Status: Acute - Respiratory Orders Smoking Cessation: Smoking cessation has been advised. For more information, call the [place] [employer] Quit Line at 1-558-CQJU-NOW. - Diet/Nutrition Diet/Nutrition: List: diabetic - Activity Activity: List: as per podiatry recommendations - Services Needed Following services are medically necessary services: Nursing - Transfer Medications Prescriptions: OxyCODONE/APAP 5/325 [Percocet 5/325 MG] 1 each PO Q8HR PRN 5 Days #15 tablet PRN Reason: Pain Ciprofloxacin [Cipro] 500 mg PO BID #28 tablet Nicotine Patch [Nicoderm] 14 mg TD DAILY #30 patch.td24 Sulfamethoxazole/Trimeth DS [Bactrim Ds] 1 each PO BID #28 tablet Home Medications: BuPROPion XL (24 HR) [Wellbutrin Xl] 150 mg PO DAILY 11/11/17 [History] Buspirone HCl [Buspar] 10 mg PO BID 11/11/17 [History] Escitalopram [Lexapro] 5 mg PO DAILY 11/11/17 [History] Insulin ASPART [NovoLOG] 0 unit SQ TID PRN 11/11/17 [History] Insulin Glargine [Lantus] 40 unit IJ HS 11/11/17 [History] Ciprofloxacin [Cipro] 500 mg PO BID #28 tablet 11/13/17 [Rx] Nicotine Patch [Nicoderm] 14 mg TD DAILY #30 patch.td24 11/13/17 [Rx] OxyCODONE/APAP 5/325 [Percocet 5/325 MG] 1 each PO Q8HR PRN 5 Days #15 tablet [Rx] Sulfamethoxazole/Trimeth DS [Bactrim Ds] 1 each PO BID #28 tablet 11/13/17 [Rx] Allergies/Adverse Reactions: 3 Allergy/AdvReac Type Severity Reaction Status Date / Time Penicillins [PCN] Allergy Rash Verified 11/11/17 08:27 morphine AdvReac Anaphylaxis Verified 11/11/17 08:27 Certification: Further, I certify that my clinical findings support that this patient is homebound (i.e. absences from home require considerable and taxing effort and are for medical reasons or congregational services or infrequently or short duration when for other reasons) because: Homebound Reason: Post-surgery restriction and or conditions limit ability to leave home Attestation: My signature below is to certify that this patient is under my care and that I, or nurse practitioner, or a physician's assistant front desk manager working with me, has a face-to -face encounter with this patient.
[2017-11-13 18:40] VITALS: BP 118/76
[2017-11-13] MEDS ORDERED: Aminoglycoside Consult 1 EACH MC ONE (19:55)
[2017-11-13] MEDS ORDERED: Sulfamethoxazole/Trimeth DS 1 EACH TABLET PO SCH (21:00)
[2017-11-13] MEDS ORDERED: Insulin DETEMIR 100 UNIT/ML X5UNITS SQ SCH (21:00)
== END 2017-11-13 19:56 | disposition home health service (06) | DRG 710 ==
LOC: EMEROO 19:30 → 3ANU 19:30
PROVIDERS: ADMIT Internal Medicine Hematology & Oncology; ATTEND Internal Medicine

== ENCOUNTER 2017-12-17 12:24 | Inpatient (IN) ==
[2017-12-17] MEDS ORDERED: Pantoprazole 40 MG VIAL IVP ONE ×2 (12:31→16:57)
--- NOTE | 2017-12-17 12:33 | Emergency Department Note ---
Disposition Clinical Impression: Type 1 diabetes mellitus, Foot ulcer due to secondary DM, DKA (diabetic ketoacidoses), GI (gastrointestinal hemorrhage) Disposition: Admitted As Inpatient Forms: ED Satisfaction Letter, Work/School Release General Adult HPI - General Chief complaint: ED Abdominal Pain Stated complaint: poss DKA Time Seen by Provider: 12/17/17 12:27 Source: patient, family Limitations: no limitations - History of Present Illness HPI Narrative: 29-year-old male with history of type 1 diabetes and recurrent diabetic ketoacidosis reports emergency department complaining of vomiting, high sugars, and discolored vomitus. There is no history of chest pain or shortness of breath. No fall or syncope. No fevers or headaches reported. The patient recently had right foot surgery secondary to diabetic ulcer. There is no history of spreading rash or redness. No confusion. The patient's concern is for elevated blood sugar, possible EKG, nursing describes possible gastrointestinal bleeding. She is not known to be anticoagulated. There is no history of back pain. Pain Scale: 9 - Related Data Home Medications Medication Instructions Recorded Confirmed Insulin ASPART [NovoLOG] 0 unit SQ TID PRN 11/11/17 12/17/17 Insulin Glargine [Lantus] 40 unit IJ HS 11/11/17 12/17/17 Gabapentin [Neurontin] 100 mg PO TID 12/12/17 12/17/17 Paroxetine HCl [Paxil] 20 mg PO DAILY 12/12/17 12/17/17 Allergies Allergy/AdvReac Type Severity Reaction Status Date / Time Penicillins [PCN] Allergy Rash Verified 12/17/17 14:12 morphine AdvReac Anaphylaxis Verified 12/17/17 14:12 All systems ED: reviewed and negative except as stated. Past Medical History - Past Medical History Medical history: Reports: diabetes Psychiatric history: Reports: anxiety - Social History Smoking Status: Current every day smoker Smokeless Tobacco Status: No Alcohol use: Reports: none Drug use: Reports: marijuana Physical Exam - General Limitations: no limitations General appearance: alert, other (Actively retching and vomiting) - Head Head exam: atraumatic, normocephalic, normal inspection - Eye Eye exam: Present: normal appearance, PERRL, EOMI - ENT ENT exam: normal exam, normal oropharynx, mucous membranes dry, TM's normal bilaterally, normal external ear exam - Neck Neck exam: Present: normal inspection, full ROM, trachea midline - Chest Chest inspection: Present: symmetric chest wall rise. Absent: tenderness - Respiratory Respiratory exam: Present: normal lung sounds bilaterally. Absent: respiratory distress, wheezes, stridor, accessory muscle use, prolonged expiratory phase - Cardiovascular Cardiovascular exam: Present: normal rhythm, tachycardia - Abdominal Exam Abdominal exam: Present: soft, tenderness. Absent: distention, guarding, rebound, rigidity, trauma, Coreas's sign, Rovsing's sign, tenderness at McBurney 's Point Abdominal tenderness: Present: diffuse, moderate - Extremities Exam Extremities exam: Present: full ROM, normal capillary refill, other (Wound VAC with wrap right foot). Absent: tenderness, pedal edema, joint swelling, calf tenderness - Expanded Lower Extremity Exam Neurovascular/Tendon exam: Present: normal capillary refill. Absent: extremity cold to touch - Back Exam Back exam: Present: normal inspection, full ROM. Absent: tenderness, CVA tenderness (R), CVA tenderness (L), vertebral tenderness - Neurological Exam Neurological exam: Present: alert, oriented X3, CN II-XII intact. Absent: motor sensory deficit - Psychiatric Psychiatric exam: Present: normal affect - Skin Skin exam: Present: warm, dry, intact, normal color. Absent: rash, cyanosis Course Course Narrative: Foot unwrapped, wound VAC in place, no evidence of cellulitis. Vital Signs Temperature 98.5 F 12/17/17 12:27 Pulse Rate 115 12/17/17 12:27 Respiratory Rate 16 12/17/17 12:27 Blood Pressure 124/87 12/17/17 12:27 O2 Sat by Pulse Oximetry 100 12/17/17 12:27 Temperature 98.5 F 12/17/17 12:27 Pulse Rate 131 12/17/17 14:32 Respiratory Rate 24 12/17/17 12:55 Blood Pressure 122/71 12/17/17 14:32 O2 Sat by Pulse Oximetry 98 12/17/17 14:32 Oxygen Delivery Oxygen Delivery Room Air Medical Decision Making - [facility] Narrative Medical decision making narrative: The patient has a history of type 1 diabetes with recurrent DKA. Laboratory analysis and presentation consistent with DKA. IV fluids and insulin drip of been ordered. Protonix was given. The patient had some discolored emesis suggestive of upper GI bleeding but no bright red material. Type and screen ordered. The patient was given Zofran, he is currently stable. I reviewed the case with the hospitalist on-call Dr. Roy who has accepted the patient to his care. The patient family are agreeable. The patient will be admitted to the ICU based on the hospitalist recommendation. - Lab Data Lab results reviewed: Yes I reviewed the patient's lab results. Result diagrams: 12/17/17 12:28 12/17/17 12:28 Lab Results 12/17/17 12/17/17 12/17/17 Range/Units 12:28 12:28 12:28 WBC 20.3 H (4.3-11.1) K/mcL RBC 4.84 (4.19-5.50) M/mcL Hgb 15.2 (12.9-16.9) g/dL Hct 45.0 (37.5-50.1) % MCV 93.0 (83.0-100.0) fL MCH 31.4 (28.0-33.3) pg MCHC 33.8 (31.6-35.5) g/dL RDW 12.6 (11.5-14.5) % Plt Count 301 (140-400) K/mcL MPV 10.5 (9.4-12.4) fL Immature Gran % 1.0 (0-4) % Seg Neutrophils % 87.9 % Lymphocytes % 7.1 % Monocytes % 3.5 % Eosinophils % 0.1 % Basophils % 0.4 % Neutrophils # 17.9 H (1.6-8.9) K/mcL Lymphocytes # 1.5 (0.6-4.6) K/mcL Monocytes # 0.7 (0.0-1.3) K/mcL Eosinophils # 0.0 (0.0-0.6) K/mcL Basophils # 0.1 (0.0-0.2) K/mcL PT (9.4-12.1) Seconds INR APTT (26.0-36.0) Seconds Sodium 133 L (136-145) mEq/L Potassium 5.2 H (3.5-5.1) mEq/L Chloride 87 L (98-107) mEq/L Carbon Dioxide 14 L (23-29) mEq/L BUN 16 (6-20) mg/dL Creatinine 1.07 (0.70-1.30) mg/dL Est GFR ( Amer) > 60 (> 60) Est GFR (Non-Af Amer) > 60 (> 60) BUN/Creatinine Ratio 15 (6-26) Glucose 647 H* (70-105) mg/dL Serum Osmolality 327 H (280-300) mOsm/kg Calculated Osmolality 308 H (280-300) Lactic Acid (0.5-2.2) mmol/L Calcium 10.1 (8.6-10.3) mg/dL Phosphorus 4.2 (2.7-4.5) mg/dL Magnesium 1.9 (1.6-2.6) mg/dL Total Bilirubin (0.3-1.0) mg/dL Direct Bilirubin (0.0-0.2) mg/dL Indirect Bilirubin (0.0-1.2) mg/dL AST (13-39) Units/L ALT (7-52) Units/L Alkaline Phosphatase (34-104) Units/L Troponin I < 0.03 (< 0.04) ng/mL Serum Total Protein (6.4-8.9) g/dL Albumin (3.5-5.7) g/dL Globulin (2.4-3.5) g/dL Albumin/Globulin Ratio (1.1-2.2) Lipase (11-82) Units/L Beta-Hydroxybutyric Acd (0.02-0.27) mmol/L Urine Color (Yellow) Urine Clarity (Clear) Urine pH (5.0-8.0) pH Units Ur Specific [place] (1.010-1.025) Urine Protein (Neg-Trace) mg/dL Urine Glucose (UA) (Normal) mg/dL Urine Ketones (Negative) mg/dL Urine Blood (Negative) Urine Nitrite (Negative) Urine Bilirubin (Negative) Urine Urobilinogen (Normal) mg/dL Ur Leukocyte Esterase (Negative) Urine Microscopic RBC (0-3) per hpf Urine Microscopic WBC (0-3) per hpf Ur Squamous Epith Cells (None-Few) per lpf Urine Bacteria (None-Few) per hpf Hyaline Casts (None-Few) per lpf Ur Culture Indicated? (NO) Blood Type Antibody Screen 12/17/17 12/17/17 12/17/17 Range/Units 12:28 12:31 12:31 WBC (4.3-11.1) K/mcL RBC (4.19-5.50) M/mcL Hgb (12.9-16.9) g/dL Hct (37.5-50.1) % MCV (83.0-100.0) fL MCH (28.0-33.3) pg MCHC (31.6-35.5) g/dL RDW (11.5-14.5) % Plt Count (140-400) K/mcL MPV (9.4-12.4) fL Immature Gran % (0-4) % Seg Neutrophils % % Lymphocytes % % Monocytes % % Eosinophils % % Basophils % % Neutrophils # (1.6-8.9) K/mcL Lymphocytes # (0.6-4.6) K/mcL Monocytes # (0.0-1.3) K/mcL Eosinophils # (0.0-0.6) K/mcL Basophils # (0.0-0.2) K/mcL PT 11.8 (9.4-12.1) Seconds INR 1.1 APTT 28.8 (26.0-36.0) Seconds Sodium (136-145) mEq/L Potassium (3.5-5.1) mEq/L Chloride (98-107) mEq/L Carbon Dioxide (23-29) mEq/L BUN (6-20) mg/dL Creatinine (0.70-1.30) mg/dL Est GFR ( Amer) (> 60) Est GFR (Non-Af Amer) (> 60) BUN/Creatinine Ratio (6-26) Glucose (70-105) mg/dL Serum Osmolality (280-300) mOsm/kg Calculated Osmolality (280-300) Lactic Acid (0.5-2.2) mmol/L Calcium (8.6-10.3) mg/dL Phosphorus (2.7-4.5) mg/dL Magnesium (1.6-2.6) mg/dL Total Bilirubin (0.3-1.0) mg/dL Direct Bilirubin (0.0-0.2) mg/dL Indirect Bilirubin (0.0-1.2) mg/dL AST (13-39) Units/L ALT (7-52) Units/L Alkaline Phosphatase (34-104) Units/L Troponin I (< 0.04) ng/mL Serum Total Protein (6.4-8.9) g/dL Albumin (3.5-5.7) g/dL Globulin (2.4-3.5) g/dL Albumin/Globulin Ratio (1.1-2.2) Lipase 5 L (11-82) Units/L Beta-Hydroxybutyric Acd > 2.00 H (0.02-0.27) mmol/L Urine Color (Yellow) Urine Clarity (Clear) Urine pH (5.0-8.0) pH Units Ur Specific [place] (1.010-1.025) Urine Protein (Neg-Trace) mg/dL Urine Glucose (UA) (Normal) mg/dL Urine Ketones (Negative) mg/dL Urine Blood (Negative) Urine Nitrite (Negative) Urine Bilirubin (Negative) Urine Urobilinogen (Normal) mg/dL Ur Leukocyte Esterase (Negative) Urine Microscopic RBC (0-3) per hpf Urine Microscopic WBC (0-3) per hpf Ur Squamous Epith Cells (None-Few) per lpf Urine Bacteria (None-Few) per hpf Hyaline Casts (None-Few) per lpf Ur Culture Indicated? (NO) Blood Type Antibody Screen 12/17/17 12/17/17 12/17/17 Range/Units 12:32 13:13 13:13 WBC (4.3-11.1) K/mcL RBC (4.19-5.50) M/mcL Hgb (12.9-16.9) g/dL Hct (37.5-50.1) % MCV (83.0-100.0) fL MCH (28.0-33.3) pg MCHC (31.6-35.5) g/dL RDW (11.5-14.5) % Plt Count (140-400) K/mcL MPV (9.4-12.4) fL Immature Gran % (0-4) % Seg Neutrophils % % Lymphocytes % % Monocytes % % Eosinophils % % Basophils % % Neutrophils # (1.6-8.9) K/mcL Lymphocytes # (0.6-4.6) K/mcL Monocytes # (0.0-1.3) K/mcL Eosinophils # (0.0-0.6) K/mcL Basophils # (0.0-0.2) K/mcL PT (9.4-12.1) Seconds INR APTT (26.0-36.0) Seconds Sodium (136-145) mEq/L Potassium (3.5-5.1) mEq/L Chloride (98-107) mEq/L Carbon Dioxide (23-29) mEq/L BUN (6-20) mg/dL Creatinine (0.70-1.30) mg/dL Est GFR ( Amer) (> 60) Est GFR (Non-Af Amer) (> 60) BUN/Creatinine Ratio (6-26) Glucose (70-105) mg/dL Serum Osmolality (280-300) mOsm/kg Calculated Osmolality (280-300) Lactic Acid 3.0 H (0.5-2.2) mmol/L Calcium (8.6-10.3) mg/dL Phosphorus (2.7-4.5) mg/dL Magnesium (1.6-2.6) mg/dL Total Bilirubin 0.7 (0.3-1.0) mg/dL Direct Bilirubin 0.2 (0.0-0.2) mg/dL Indirect Bilirubin 0.5 (0.0-1.2) mg/dL AST 41 H (13-39) Units/L ALT 76 H (7-52) Units/L Alkaline Phosphatase 97 (34-104) Units/L Troponin I (< 0.04) ng/mL Serum Total Protein 8.1 (6.4-8.9) g/dL Albumin 5.3 (3.5-5.7) g/dL Globulin 2.8 (2.4-3.5) g/dL Albumin/Globulin Ratio 1.9 (1.1-2.2) Lipase (11-82) Units/L Beta-Hydroxybutyric Acd (0.02-0.27) mmol/L Urine Color (Yellow) Urine Clarity (Clear) Urine pH (5.0-8.0) pH Units Ur Specific [place] (1.010-1.025) Urine Protein (Neg-Trace) mg/dL Urine Glucose (UA) (Normal) mg/dL Urine Ketones (Negative) mg/dL Urine Blood (Negative) Urine Nitrite (Negative) Urine Bilirubin (Negative) Urine Urobilinogen (Normal) mg/dL Ur Leukocyte Esterase (Negative) Urine Microscopic RBC (0-3) per hpf Urine Microscopic WBC (0-3) per hpf Ur Squamous Epith Cells (None-Few) per lpf Urine Bacteria (None-Few) per hpf Hyaline Casts (None-Few) per lpf Ur Culture Indicated? (NO) Blood Type O POSITIVE Antibody Screen NEGATIVE 12/17/17 Range/Units 13:29 WBC (4.3-11.1) K/mcL RBC (4.19-5.50) M/mcL Hgb (12.9-16.9) g/dL Hct (37.5-50.1) % MCV (83.0-100.0) fL MCH (28.0-33.3) pg MCHC (31.6-35.5) g/dL RDW (11.5-14.5) % Plt Count (140-400) K/mcL MPV (9.4-12.4) fL Immature Gran % (0-4) % Seg Neutrophils % % Lymphocytes % % Monocytes % % Eosinophils % % Basophils % % Neutrophils # (1.6-8.9) K/mcL Lymphocytes # (0.6-4.6) K/mcL Monocytes # (0.0-1.3) K/mcL Eosinophils # (0.0-0.6) K/mcL Basophils # (0.0-0.2) K/mcL PT (9.4-12.1) Seconds INR APTT (26.0-36.0) Seconds Sodium (136-145) mEq/L Potassium (3.5-5.1) mEq/L Chloride (98-107) mEq/L Carbon Dioxide (23-29) mEq/L BUN (6-20) mg/dL Creatinine (0.70-1.30) mg/dL Est GFR ( Amer) (> 60) Est GFR (Non-Af Amer) (> 60) BUN/Creatinine Ratio (6-26) Glucose (70-105) mg/dL Serum Osmolality (280-300) mOsm/kg Calculated Osmolality (280-300) Lactic Acid (0.5-2.2) mmol/L Calcium (8.6-10.3) mg/dL Phosphorus (2.7-4.5) mg/dL Magnesium (1.6-2.6) mg/dL Total Bilirubin (0.3-1.0) mg/dL Direct Bilirubin (0.0-0.2) mg/dL Indirect Bilirubin (0.0-1.2) mg/dL AST (13-39) Units/L ALT (7-52) Units/L Alkaline Phosphatase (34-104) Units/L Troponin I (< 0.04) ng/mL Serum Total Protein (6.4-8.9) g/dL Albumin (3.5-5.7) g/dL Globulin (2.4-3.5) g/dL Albumin/Globulin Ratio (1.1-2.2) Lipase (11-82) Units/L Beta-Hydroxybutyric Acd (0.02-0.27) mmol/L Urine Color Yellow (Yellow) Urine Clarity Clear (Clear) Urine pH 5.5 (5.0-8.0) pH Units Ur Specific [place] > 1.030 H (1.010-1.025) Urine Protein Trace (Neg-Trace) mg/dL Urine Glucose (UA) >=1000 H (Normal) mg/dL Urine Ketones >=160 H (Negative) mg/dL Urine Blood Negative (Negative) Urine Nitrite Negative (Negative) Urine Bilirubin Negative (Negative) Urine Urobilinogen Normal (Normal) mg/dL Ur Leukocyte Esterase Negative (Negative) Urine Microscopic RBC 0-3 (0-3) per hpf Urine Microscopic WBC 0-3 (0-3) per hpf Ur Squamous Epith Cells Moderate H (None-Few) per lpf Urine Bacteria None Seen (None-Few) per hpf Hyaline Casts None Seen (None-Few) per lpf Ur Culture Indicated? NO (NO) Blood Type Antibody Screen - Radiology Data Radiology results reviewed: Yes I reviewed the patient's radiology results.
[2017-12-17] MEDS ORDERED: Ondansetron 4 MG/2 ML VIAL IVP ONE (12:36)
[2017-12-17] MEDS: 0.9 % Sodium Chloride 1,000 ML IVC SCH ×4 (13:22→18:25)
[2017-12-17 13:37] LABS: Basophils # 0.1 K/mcL (0.0-0.2); Basophils % 0.4 %; Eosinophils % 0.1 %; Hemoglobin 15.2 g/dL (12.9-16.9); Lymphocytes # 1.5 K/mcL (0.6-4.6); Lymphocytes % 7.1 %; Mean Corpuscular HGB Conc 33.8 g/dL (31.6-35.5); Mean Corpuscular Hemoglobin 31.4 pg (28.0-33.3); Mean Platelet Volume 10.5 fL (9.4-12.4); Monocytes # 0.7 K/mcL (0.0-1.3); Monocytes % 3.5 %; Neutrophils # 17.9 K/mcL (1.6-8.9); Platelet Count 301 K/mcL (140-400); Red Blood Count 4.84 M/mcL (4.19-5.50); Red Cell Distribution Width 12.6 % (11.5-14.5); Segmented Neutrophils % 87.9 %
[2017-12-17 13:44] LABS: INR 1.1; Prothrombin Time 11.8 Seconds (9.4-12.1)
[2017-12-17 13:47] LABS: Activated Partial Thrombo Time 28.8 Seconds (26.0-36.0)
[2017-12-17 13:54] LABS: Albumin 5.3 g/dL (3.5-5.7); Albumin/Globulin Ratio 1.9 (1.1-2.2); Bilirubin,Direct 0.2 mg/dL (0.0-0.2); Bilirubin,Indirect 0.5 mg/dL (0.0-1.2); Bilirubin,Total 0.7 mg/dL (0.3-1.0); Globulin 2.8 g/dL (2.4-3.5); Total Protein 8.1 g/dL (6.4-8.9)
[2017-12-17 13:56] LABS: Troponin I < 0.03 ng/mL (< 0.04)
[2017-12-17 14:02] LABS: BUN/Creatinine Ratio 15 (6-26); Blood Urea Nitrogen 16 mg/dL (6-20); Calcium 10.1 mg/dL (8.6-10.3); Carbon Dioxide 14 mEq/L (23-29); Chloride 87 mEq/L (98-107); Glucose 647 mg/dL (70-105); Magnesium 1.9 mg/dL (1.6-2.6); Osmolality,Calculated 308 (280-300); Phosphorous 4.2 mg/dL (2.7-4.5); Potassium 5.2 mEq/L (3.5-5.1); Sodium 133 mEq/L (136-145); eGFR For African Americans > 60 (> 60); eGFR For Non-African Americans > 60 (> 60)
[2017-12-17 14:10] LABS: Bilirubin,Urine Negative (Negative); Blood,Urine Negative (Negative); Clarity,Urine Clear (Clear); Color,Urine Yellow (Yellow); Glucose,Urine (UA) >=1000 mg/dL (Normal); Ketones,Urine >=160 mg/dL (Negative); Leukocyte Esterase,Urine Negative (Negative); Nitrite,Urine Negative (Negative); PH,Urine 5.5 pH Units (5.0-8.0); Protein,Urine Trace mg/dL (Neg-Trace); Specific Gravity,Urine > 1.030 (1.010-1.025); Urobilinogen,Urine Normal (Normal)
[2017-12-17 14:13] LABS: Bacteria,Urine None Seen per hpf (None-Few); Hyaline Casts,Urine None Seen per lpf (None-Few); RBC,Urine 0-3 per hpf (0-3); Squamous Epithelial Cell,Urine Moderate per lpf (None-Few); WBC,Urine 0-3 per hpf (0-3)
[2017-12-17 14:40] LABS: VBG HCO3 14 mEq/L (21-27); VBG PCO2 32 mmHg (41-51); VBG PH 7.26 pH Units (7.32-7.42); VBG PO2 81 mmHg (25-50)
[2017-12-17] MEDS ORDERED: Insulin Human Regular 100 UNIT in 0.9 % Sodium Chloride 100 ML IVC SCH ×2 (14:45→19:15)
[2017-12-17 15:29] LABS: Amphetamine Screen,Urine Negative ng/mL (Cutoff=1000); Barbiturate Screen,Urine Negative ng/mL (Cutoff=200); Benzodiazepines Screen,Urine Negative ng/mL (Cutoff=200); Cannabinoid Screen,Urine Negative ng/mL (Cutoff = 50); Cocaine Screen,Urine Negative ng/mL (Cutoff= 300); Opiate Screen,Urine Negative ng/mL (Cutoff=300); Phencyclidine Screen,Urine Negative ng/mL (Cutoff=25)
[2017-12-17] MEDS ORDERED: 0.9 % Sodium Chloride 1,000 ML IVC ONE (15:34)
--- NOTE | 2017-12-17 16:42 | Internal Med History&Physical ---
Date of Encounter: 12/17/17 Time of Encounter: 16:40 Internal Medicine - H&P: HPI Chief complaint: abdominal pain with dry heaves and nausea with emesis consisting of dark br History of present illness: Mr. Iglesias is a 37-year-old gentleman who presents with DKA associated with abdominal pain with dry heaves and nausea with emesis consisting of dark brown material concerning for hematemesis. At baseline he takes 18 units of Lantus twice a day, 6 units 3 times a day before meals short-acting insulin along with carbohydrate counting of 1 unit for every 10 carbohydrates consumed. In terms of presentation, he presents with four-day history of severe epigastric abdominal pain with progressive worsening leading to nausea, dry heaves with emesis. He developed out brown emesis since since today. He denies missing insulin and had been taking insulin regularly at home. He has a right foot wound underneath Dr. foster and gets wound VAC at home EKG personally reviewed with rate of 80, normal sinus rhythm XR/XR chest 1V portable IMPRESSION: No acute process. Past Med Surg Social Fam HX - Past Medical History Medical history: diabetes Psychiatric history: anxiety - Past Surgical History Surgical History: no surgical history, non-contributory - Social History Smoking Status: Current every day smoker Smokeless Tobacco Status: No Alcohol use: none Drug use: marijuana - Family History Mother Living Status: Still Living Hx Family Cardiac Disorders: Yes (HTN) Hx Family Respiratory Disorders: No Hx Family Cancer: No Hx Family GI Disorders: No Hx Family Endocrine Disorder: No Hx Family Neuromuscular Disorders: No Hx Family Neurologic Disorders: No Hx Family HEENT Disorders: No Hx Family Autoimmune Disorders: No Father Living Status: Hx Family Endocrine Disorder: Yes (Diabeties) Internal Medicine - H&P: Meds Insulin ASPART [NovoLOG] 0 unit SQ TID PRN 11/11/17 [History] Insulin Glargine [Lantus] 40 unit IJ HS 11/11/17 [History] Gabapentin [Neurontin] 100 mg PO TID 12/12/17 [History] Paroxetine HCl [Paxil] 20 mg PO DAILY 12/12/17 [History] 3 Allergy/AdvReac Type Severity Reaction Status Date / Time Penicillins [PCN] Allergy Rash Verified 12/17/17 14:12 morphine AdvReac Anaphylaxis Verified 12/17/17 14:12 All Systems PM: A 10-system review of systems was performed and is negative for pertinent findings except as documented above in the HPI. Review of systems: ROS 14 point review of systems reviewed as best as possible given presentation. Pertinent positive or negative as per HPI or otherwise reviewed as negative - Constitutional Vitals: Temp Pulse Resp BP Pulse Ox 98.5 F 131 24 122/71 98 12/17/17 12:27 12/17/17 14:32 12/17/17 12:55 12/17/17 14:32 12/17/17 14:32 Exam: General - AAO x 3 Psych - Appropriate affect/speech. No agitation Eyes - MARIA E. Eye lids intact. No scleral icterus Neuro - No gross peripheral or central neuro deficits on inspection Heart - Sinus. RRR. S1 and S2 present. No added HS/murmurs appreciated. No elevated JVD appreciated. Lung - Adequate air entry b/l, No crackles/wheezes appreciated GI - epigastric tenderness, no guarding or rigidity. No hepatosplenomegaly/ ascites. BS+ - No CVA/suprapubic tenderness or palpable bladder distension Skin - Intact. No rash/petechiae/ecchymosis. Warm extremities MSK - right lateral foot with wound VAC Internal Med - H&P Results - Labs CBC & Chem 7: 12/17/17 12:28 12/17/17 12:28 Labs: Short CBC 12/17/17 Range/Units 12:28 WBC 20.3 H (4.3-11.1) K/mcL Hgb 15.2 (12.9-16.9) g/dL Hct 45.0 (37.5-50.1) % Plt Count 301 (140-400) K/mcL Neutrophils # 17.9 H (1.6-8.9) K/mcL BMP 12/17/17 12:28 Sodium 133 L Potassium 5.2 H Chloride 87 L Carbon Dioxide 14 L BUN 16 Creatinine 1.07 Glucose 647 H* Calcium 10.1 Cardiac Enzymes 12/17/17 Range/Units 12:28 Troponin I < 0.03 (< 0.04) ng/mL Liver Function 12/17/17 Range/Units 12:32 Total Bilirubin 0.7 (0.3-1.0) mg/dL Direct Bilirubin 0.2 (0.0-0.2) mg/dL AST 41 H (13-39) Units/L ALT 76 H (7-52) Units/L Alkaline Phosphatase 97 (34-104) Units/L Albumin 5.3 (3.5-5.7) g/dL Urine 12/17/17 Range/Units 13:29 Urine Color Yellow (Yellow) Urine Clarity Clear (Clear) Urine pH 5.5 (5.0-8.0) pH Units Ur Specific [place] > 1.030 H (1.010-1.025) Urine Protein Trace (Neg-Trace) mg/dL Urine Glucose (UA) >=1000 H (Normal) mg/dL - ABG Interpretation ABG results: 12/17/17 14:37 VBG pH 7.26 L VBG pCO2 32 L VBG pO2 81 H VBG HCO3 14 L - Impressions ITS Impressions Chest X-Ray 12/17/17 12:28 IMPRESSION: No acute process. D/ / Tiffany Anderson MD / Tiffany Anderson MD Interpreting Provider: Tiffany Anderson MD - Assessment and plan (1) DKA (diabetic ketoacidoses) Current Visit: Yes Status: Acute Assessment and plan: Insulin drip, monitor glucose, trend labs, IV fluids, bolus Nothing by mouth for now Qualifiers: Qualified Code(s): E13.10 - Other specified diabetes mellitus with ketoacidosis without coma (2) Hematemesis Current Visit: Yes Status: Acute Assessment and plan: Protonix drip, trend H&H every 6, monitor clinical course Nonemergent GI evaluation Qualifiers: Nausea presence: with nausea Qualified Code(s): K92.0 - Hematemesis (3) Leukocytosis Current Visit: No Status: Acute Assessment and plan: Could be reactive to DKA Given right foot wound, will consult wound care and performed 2 sets of surveillance blood cultures Qualifiers: Qualified Code(s): D72.829 - Elevated white blood cell count, unspecified (4) Unspecified open wound, right foot, subsequent encounter Current Visit: Yes Status: Acute Assessment and plan: There is with Dr. foster gets wound VAC home health - Time Spent With Patient Total time spent is greater than 50% in coordination of care (as documented) at patient's floor/unit and/or counseling patient:
[2017-12-17] MEDS ORDERED: *HR* Dextrose 50 % in Water (Syg) 50 ML SYRINGE IVP PRN (16:53)
[2017-12-17] MEDS ORDERED: D5% in 0.45% NACL 1,000 ML IVC PRN (16:53)
[2017-12-17] MEDS ORDERED: Insulin Regular, Human 100 UNIT/ML IV PRN ×2 (16:53)
[2017-12-17] MEDS ORDERED: D5% in 0.45% NACL w KCl 20 MEQ/1,000 ML MLS IVC PRN (16:53)
[2017-12-17] MEDS ORDERED: 0.45 % Sodium Chloride w/KCl 20 MEQ/1,000 ML MLS IVC SCH ×3 (17:00→18:30)
[2017-12-17] MEDS ORDERED: 0.9 % Sodium Chloride 1,000 ML IVC SCH ×2 (17:00)
[2017-12-17] MEDS ORDERED: D5% in 0.45% NACL w KCl 20 MEQ/1,000 ML MLS IVC ONE (18:27)
[2017-12-17] MEDS ORDERED: 0.9 % Sodium Chloride w KCl 20 MEQ/1,000 ML MLS IVC ONE (18:42)
[2017-12-17] MEDS ORDERED: 0.9 % Sodium Chloride w KCl 20 MEQ/1,000 ML MLS IVC SCH (18:45)
[2017-12-17 18:52] LABS: VBG HCO3 16 mEq/L (21-27); VBG PCO2 32 mmHg (41-51); VBG PO2 132 mmHg (25-50)
[2017-12-17 19:06] LABS: BUN/Creatinine Ratio 15 (6-26); Blood Urea Nitrogen 15 mg/dL (6-20); Calcium 9.2 mg/dL (8.6-10.3); Carbon Dioxide 16 mEq/L (23-29); Chloride 102 mEq/L (98-107); Glucose 259 mg/dL (70-105); Osmolality,Calculated 294 (280-300); Potassium 4.7 mEq/L (3.5-5.1); Sodium 137 mEq/L (136-145); eGFR For African Americans > 60 (> 60); eGFR For Non-African Americans > 60 (> 60)
[2017-12-17 19:24] LABS: Hemoglobin 13.3 g/dL (12.9-16.9)
[2017-12-17] MEDS: D5% in 0.45% NACL w KCl 20 MEQ/1,000 ML MLS IVC PRN (20:38)
[2017-12-17] MEDS: Pantoprazole 40 MG in 0.9 % Sodium Chloride Mini Bag 100 ML IVC SCH (21:14)
[2017-12-17] MEDS ORDERED: Acetaminophen 325 MG TABLET PO PRN (21:51)
[2017-12-17] MEDS: Ondansetron 4 MG/2 ML VIAL IVP PRN (22:04)
[2017-12-17] MEDS: Gabapentin 100 MG CAPSULE PO SCH (22:31)
[2017-12-17 23:15] LABS: BUN/Creatinine Ratio 13 (6-26); Blood Urea Nitrogen 12 mg/dL (6-20); Calcium 8.7 mg/dL (8.6-10.3); Carbon Dioxide 20 mEq/L (23-29); Chloride 105 mEq/L (98-107); Glucose 223 mg/dL (70-105); Osmolality,Calculated 295 (280-300); Potassium 4.4 mEq/L (3.5-5.1); Sodium 139 mEq/L (136-145); eGFR For African Americans > 60 (> 60); eGFR For Non-African Americans > 60 (> 60)
[2017-12-18] MEDS: D5% in 0.45% NACL w KCl 20 MEQ/1,000 ML MLS IVC PRN (00:40)
[2017-12-18] MEDS: Pantoprazole 40 MG in 0.9 % Sodium Chloride Mini Bag 100 ML IVC SCH ×3 (02:59→08:04)
[2017-12-18 03:03] LABS: Basophils # 0.1 K/mcL (0.0-0.2); Basophils % 0.3 %; Hematocrit 39.1 % (37.5-50.1); Hemoglobin 13.8 g/dL (12.9-16.9); Immature Granulocytes % 0.7 % (0-4); Lymphocytes # 2.7 K/mcL (0.6-4.6); Lymphocytes % 17.4 %; Mean Corpuscular HGB Conc 35.3 g/dL (31.6-35.5); Mean Corpuscular Hemoglobin 32.3 pg (28.0-33.3); Mean Corpuscular Volume 91.6 fL (83.0-100.0); Mean Platelet Volume 9.6 fL (9.4-12.4); Monocytes # 1.4 K/mcL (0.0-1.3); Monocytes % 8.8 %; Neutrophils # 11.2 K/mcL (1.6-8.9); Platelet Count 256 K/mcL (140-400); Red Blood Count 4.27 M/mcL (4.19-5.50); Red Cell Distribution Width 12.6 % (11.5-14.5); Segmented Neutrophils % 72.8 %
[2017-12-18 03:11] LABS: VBG HCO3 25 mEq/L (21-27); VBG PCO2 46 mmHg (41-51); VBG PH 7.35 pH Units (7.32-7.42); VBG PO2 90 mmHg (25-50)
[2017-12-18 03:24] LABS: Alanine Aminotransferase 59 Units/L (7-52); Albumin 4.3 g/dL (3.5-5.7); Albumin/Globulin Ratio 1.7 (1.1-2.2); Alkaline Phosphatase 74 Units/L (34-104); Aspartate Amino Transferase 31 Units/L (13-39); BUN/Creatinine Ratio 14 (6-26); Bilirubin,Total 0.5 mg/dL (0.3-1.0); Blood Urea Nitrogen 12 mg/dL (6-20); Calcium 8.7 mg/dL (8.6-10.3); Carbon Dioxide 24 mEq/L (23-29); Chloride 108 mEq/L (98-107); Globulin 2.6 g/dL (2.4-3.5); Glucose 89 mg/dL (70-105); Osmolality,Calculated 289 (280-300); Potassium 3.6 mEq/L (3.5-5.1); Sodium 140 mEq/L (136-145); Total Protein 6.9 g/dL (6.4-8.9); eGFR For African Americans > 60 (> 60); eGFR For Non-African Americans > 60 (> 60)
[2017-12-18] MEDS ORDERED: Insulin DETEMIR 100 UNIT/ML X5UNITS SQ ONE (03:50)
[2017-12-18] MEDS: Ondansetron 4 MG/2 ML VIAL IVP PRN (04:18)
[2017-12-18] MEDS ORDERED: *HR* Promethazine 25 MG/ML VIAL IVP ONE (05:59)
[2017-12-18 07:57] LABS: Estimated Average Glucose 240 mg/dl
[2017-12-18] MEDS ORDERED: Metoclopramide 10 MG in 0.9 % Sodium Chloride 50 ML IVPB ONE (08:01)
[2017-12-18] MEDS: Insulin LISPRO 300 UNITS/3 ML VIAL SQ SCH ×2 (08:03→11:53)
[2017-12-18] MEDS ORDERED: Metoclopramide 10 MG/2 ML VIAL IVP ONE (08:06)
[2017-12-18] MEDS: Gabapentin 100 MG CAPSULE PO SCH (08:23)
--- NOTE | 2017-12-18 08:44 | Electrocardiograph Report ---
[facility] [facility] Test Date: 2017-12-17 Pat Name: Tha Iglesias Department: 103 Room: 2N01 Gender: Die Caster: : [id number] Requested By: Sterling Arevalo Order Number: [id number] Reading MD: Brijesh Cox Measurements Intervals Ucon Rate: 110 P: 72 NE: 150 QRS: 72 QRSD: 85 T: 47 QT: 324 QTc: 389 Interpretive Statements SINUS TACHYCARDIA ABNORMAL RHYTHM ECG Electronically Signed On 12-18-2017 8:42:59 EDT by Brijesh Cox
--- NOTE | 2017-12-18 11:00 | Gastroenterology Consult Note ---
<Tha Hodge Hardeep - Last Filed: 12/18/17 10:55> Date of Encounter: 12/18/17 Time of Encounter: 10:10 - Assessment and plan (1) Hematemesis Current Visit: Yes Status: Acute Assessment and plan: Continue Protonix drip and plan for EGD today to r/o esophagitis, gastritis, duodenitis, PUD, MW tear, or AVM. Keep NPO. Hgb 13.8 today, continue to monitor. Qualifiers: Nausea presence: with nausea Qualified Code(s): K92.0 - Hematemesis (2) DKA (diabetic ketoacidoses) Current Visit: Yes Status: Acute Assessment and plan: Management per primary team. Qualifiers: Diabetes mellitus type: other specified (including PARVIN) Diabetes mellitus complication detail: without coma Qualified Code(s): E13.10 - Other specified diabetes mellitus with ketoacidosis without coma - Time Spent With Patient Total time spent is greater than 50% in coordination of care (as documented) at patient's floor/unit and/or counseling patient: GI History of Present Illness - Data of Consult Patient: new to practice Consult date: 12/18/17 Requesting Physician: Cammy Branham MD - Consult Narrative Reason for consult: Hematemesis History of present illness: Mr. Iglesias is a 37 year old male with PMHx of DM who presented to the ED with DKA with abdominal pain, nausea, vomiting of dark brown material. He reports four-day history of severe epigastric abdominal pain with progressive worsening leading to nausea and vomiting. Brown emesis started the day of admission. He was started on Protonix drip. Hgb on admission was 15.2 and this AM Hgb 13.8. He denies fever, chills, chest pain, diarrhea, melena, or hematochezia. Procedures: None NSAIDs: None Anticoagulation: None Past Med Surg Social Fam HX - Past Medical History Medical history: diabetes Psychiatric history: anxiety - Past Surgical History Surgical History: no surgical history, non-contributory - Social History Smoking Status: Current every day smoker Smokeless Tobacco Status: No Alcohol use: none Drug use: marijuana - Family History Mother Living Status: Still Living Hx Family Cardiac Disorders: Yes (HTN) Hx Family Respiratory Disorders: No Hx Family Cancer: No Hx Family GI Disorders: No Hx Family Endocrine Disorder: No Hx Family Neuromuscular Disorders: No Hx Family Neurologic Disorders: No Hx Family HEENT Disorders: No Hx Family Autoimmune Disorders: No Father Living Status: Cause of : massive stroke Hx Family Endocrine Disorder: Yes (Diabeties) - Gastrointestinal Gastrointestinal: Present: as per HPI - Constitutional Constitutional: as per HPI - EENT Eyes: as per HPI Ears: Present: as per HPI Nose, mouth and throat: Present: as per HPI - Cardiovascular Cardiovascular ROS: Present: as per HPI - Respiratory Respiratory IM: Present: as per HPI - Genitourinary Genitourinary: Absent: change in color, Urinary frequency - Neurological ROS Neurological GI: Present: as per HPI - Hematologic/Lymphatic Hematologic/Lymphatic pediatric: Present: as per HPI - Musculoskeletal Musculoskeletal ROS GI: Present: as per HPI - Integumentary Integumentary GI: Present: as per HPI - Psychiatric ROS Psychiatric GI: Present: as per HPI - Endocrine Endocrine IM: Present: as per HPI - Constitutional Vitals: Temp Pulse Resp BP Pulse Ox 98.7 F 77 18 143/86 97 12/18/17 07:22 12/18/17 07:22 12/18/17 07:22 12/18/17 07:22 12/18/17 07:22 General appearance: Present: cooperative, A&O X 3, no acute distress, answers questions appropriately - Head Head exam: Present: atraumatic, normocephalic - Eye Eye exam: Present: normal appearance, sclera anicteric - ENT ENT exam: Present: mucous membranes dry - Neck Neck exam general surgery: Present: normal inspection, trachea midline - Respiratory Respiratory exam: Present: CTAB. Absent: rales, rhonchi, wheezes - Cardiovascular Cardiovascular exam: Present: RRR, +S1, +S2 - GI/Abdominal GI/Abdominal exam: Present: normal bowel sounds, soft, tenderness (epigastric), no peritoneal signs. Absent: distended, firm, guarding - Rectal Rectal exam: Present: deferred - Extremities Exam Extremities exam: Present: warm - Neurological Exam Neurological exam: Present: no focal deficits - Psychiatric Psychiatric exam: Present: normal affect, normal mood - Skin Skin exam: Present: dry, intact, normal color, warm Results - Labs CBC & Chem 7: 12/18/17 02:50 12/18/17 02:50 Labs: Last Result Calcium 8.7 mg/dL (8.6-10.3) 12/18/17 02:50 Troponin I < 0.03 ng/mL (< 0.04) 12/17/17 12:28 Urine Opiates Screen Negative ng/mL (Oiiuqg=725) 12/17/17 13:20 Entire Visit Hgb 13.8 g/dL (12.9-16.9) 12/18/17 02:50 Hct 39.1 % (37.5-50.1) 12/18/17 02:50 PT 11.8 Seconds (9.4-12.1) 12/17/17 12:31 Total Bilirubin 0.5 mg/dL (0.3-1.0) 12/18/17 02:50 AST 31 Units/L (13-39) 12/18/17 02:50 ALT 59 Units/L (7-52) H 12/18/17 02:50 Lipase 5 Units/L (11-82) L 12/17/17 12:31 - ABG ABG results: PT/INR, D-dimer PT 11.8 Seconds (9.4-12.1) 12/17/17 12:31 Consult Discharge Plan - Plan Instructions: Metoclopramide (By mouth), Sucralfate (By mouth), Omeprazole (By mouth), Dehydration (DC), Diet for Ulcers and Gastritis (GEN), Diabetes Mellitus Type 2 in Adults (DC), Upper Gastrointestinal Endoscopy (DC) Referrals: Narcisa Hummel CNP [Primary Care Provider] - 12/23/17 1:00 pm Tru Bowman MD [Partnered Physician] - (SENT WEB REQUEST ON 12-18-17 @ 1043) Prescriptions: Metoclopramide HCl 5 mg PO QIDAC #30 tablet Omeprazole [PriLOSEC] 20 mg PO BIDAC #60 capsule. Sucralfate [Carafate] 1 gm PO QIDAC #120 tablet <Tru Bowman - Last Filed: 12/18/17 16:55> Date of Encounter: 12/18/17 - Time Spent With Patient Total time spent is greater than 50% in coordination of care (as documented) at patient's floor/unit and/or counseling patient: GI History of Present Illness - Data of Consult Requesting Physician: Cammy Branham MD - Consult Narrative History of present illness: Mr. Iglesias is a 37 year old male - Constitutional Vitals: Temp Pulse Resp BP Pulse Ox 98.7 F 75 18 133/78 99 12/18/17 12:21 12/18/17 12:21 12/18/17 12:21 12/18/17 12:21 12/18/17 12:21 Results - Labs CBC & Chem 7: 12/18/17 02:50 12/18/17 02:50 Labs: Last Result Calcium 8.7 mg/dL (8.6-10.3) 12/18/17 02:50 Troponin I < 0.03 ng/mL (< 0.04) 12/17/17 12:28 Urine Opiates Screen Negative ng/mL (Ubmxum=439) 12/17/17 13:20 Entire Visit Hgb 13.8 g/dL (12.9-16.9) 12/18/17 02:50 Hct 39.1 % (37.5-50.1) 12/18/17 02:50 PT 11.8 Seconds (9.4-12.1) 12/17/17 12:31 Total Bilirubin 0.5 mg/dL (0.3-1.0) 12/18/17 02:50 AST 31 Units/L (13-39) 12/18/17 02:50 ALT 59 Units/L (7-52) H 12/18/17 02:50 Lipase 5 Units/L (11-82) L 12/17/17 12:31 - ABG ABG results: PT/INR, D-dimer PT 11.8 Seconds (9.4-12.1) 12/17/17 12:31 - Attending Attestation Tha Iglesias is a 37-year-old white male who has was morbidly obese and has a history of diabetes for several years. He said he has been in in and out with the diabetic ketoacidosis with the past few admissions apparently unfortunately did not have any insurance and so did not was not did not have access to healthcare he told me. He apparently had an episode of coffee-ground emesis several episodes of nausea and vomiting and presenting with diabetic ketoacidosis. Is no report of melena set long-standing gastroesophageal reflux disease and that has been having a lot of heartburn over the past few years but is never had an endoscopy date. He denies any any dysphagia history of her alcoholism up until about 5 years ago he said he was a heavy drinker from the age of 19 difficult to 5 years ago per history he smokes a half pack of cigarettes been struggling try to stop Now he has health insurance and so he is set up to see [facility] plasma center sometime next week he probably has brittle diabetes and may need her insulin pump is eating and diabetic ketoacidosis. He has several tattoos which essentially for his friend who is a poor tattoo parlor has had a placed on him. His hepatitis status is unknown his mother Kat is at his bedside and also provided some history. His not been tested for fatty liver Patient has never had an endoscopy to date. He has had some back problems him had back surgery for all compressed lumbar 5/S1 which was thought secondary to an old injury The procedure of upper endoscopy as suspect patient has significant gastroesophageal reflux disease although his symptoms to stress test or a stricture at this time. We will make further recommendations after endoscopy. Presently his nausea and vomiting has stopped. The rest of the workup could be done as an outpatient. If he is discharged today. Thank you very much for this consultation. I have personally performed a face to face evaluation on this patient. I have reviewed and agree with the care plan. History and Exam by me shows:
[2017-12-18] MEDS ORDERED: Ondansetron 4 MG/2 ML VIAL ONE (11:47)
[2017-12-18] MEDS ORDERED: *HR* FentaNYL (PF) 100 MCG/2 ML VIAL ONE (11:47)
[2017-12-18] MEDS ORDERED: Lidocaine -MPF 2% 2 ML VIAL ONE (11:47)
[2017-12-18] MEDS ORDERED: *HR* Propofol 200 MG/20 ML VIAL IVP ONE (11:47)
[2017-12-18] MEDS ORDERED: Metoclopramide 10 MG/2 ML VIAL IVP SCH (12:00)
[2017-12-18] MEDS ORDERED: Propofol 500 MG/50 ML INFUS..BTL ONE (12:13)
[2017-12-18 12:24] VITALS: BP 133/78
[2017-12-18] MEDS ORDERED: 0.9 % Sodium Chloride 1,000 ML IVC SCH (12:30)
--- NOTE | 2017-12-18 12:54 | Anesthesia Evaluation PreOp ---
Date of Encounter: 12/18/17 Time of Encounter: 12:51 - Past History Planned Operation: EGD re: hematemesis Cardiac History: Denies any Significant Hx Pulmonary History: Smoker [employer] History: Other (Anxiety/Depression maitained on Paxil. Chronic pain maintained on Gabapentin) Other Medical History: Diabetes Type I (Dx age 29) Anesthesia History: No Prior Anesthetic Complications, Past Anesthesia (Foot surery 10/2007, Back surgery [[facility]] 2006,) Alcohol Use: none Drug use: marijuana Medications and Allergies Insulin ASPART [NovoLOG] 0 unit SQ TID PRN 11/11/17 [History] Insulin Glargine [Lantus] 40 unit IJ HS 11/11/17 [History] Gabapentin [Neurontin] 100 mg PO TID 12/12/17 [History] Paroxetine HCl [Paxil] 20 mg PO DAILY 12/12/17 [History] 3 Allergy/AdvReac Type Severity Reaction Status Date / Time Penicillins [PCN] Allergy Rash Verified 12/17/17 14:12 morphine AdvReac Anaphylaxis Verified 12/17/17 14:12 - Meds/Allergy Pre-op Review Medications Reviewed: Yes Allergies Reviewed: Yes Beta Blockers on Current Med List: No Anesthesia Results - Labs 12/18/17 02:50 12/18/17 02:50 Laboratory Results Impressions Chest X-Ray 12/17/17 12:28 IMPRESSION: No acute process. D/ / Tiffany Anderson MD / Tiffany Anderson MD Interpreting Provider: Tiffany Anderson MD Anesthesia Exam Vital Signs Temp Pulse Resp BP Pulse Ox 12/18/17 12:21 98.7 F 75 18 133/78 99 12/18/17 11:04 98.7 F 72 18 138/85 99 12/18/17 07:22 98.7 F 77 18 143/86 97 12/18/17 04:04 91 12/18/17 03:13 99.1 F 102 18 139/79 100 12/18/17 00:09 99 12/17/17 23:41 99.4 F 102 16 139/85 100 12/17/17 21:02 121 18 145/84 97 12/17/17 18:47 99.9 F H 134 18 145/84 97 12/17/17 16:55 131 15 123/75 98 12/17/17 14:32 131 122/71 98 12/17/17 13:49 120 128/75 100 12/17/17 12:55 116 24 120/84 100 Intake and Output 12/17/17 12/18/17 12/18/17 23:59 07:59 15:59 Intake Total 904.2 / 904.2 2240.8 / 2240.8 Balance 904.2 / 904.2 2240.8 / 2240.8 Intake: IV Fluids 904.2 / 904.2 2240.8 / 2240.8 KCl 20 mEq in 0.9% Sodium 850 / 850 Chloride 20 meq In 1,000 ml @ 500 mls/hr IVC .Q2H ISHA Rx#: [id number] KCl 20mEq IN D5%-0.45 NACL 20 2000 / 2000 meq In 1,000 ml @ 250 mls/hr IVC .Q4H PRN Rx#:[id number] HumuLIN R 100 UNIT In 0.9 % 54.2 / 54.2 40.8 / 40.8 Sodium Chloride 100 ML @ 0.1 UNIT/KG/HR 8.39 mls/hr IVC CONT ISHA Rx#:[id number] Protonix 40 MG In 0.9 % Sodium 200 / 200 Chloride (Mini-Bag +) 100 ML @ 20 mls/hr IVC .Q5H ISHA Rx#: [id number] Other: Weight 83.1 kg 83.5 kg Blood Glucose* 193 142 163 Patient Weight 12/18/17 23:59 Weight 83.5 kg Height: 6'4" Weight: 184# BMI = 22 NPO (# of Hours): MNoc Pain Scale Used: Numeric (1 - 10) - HEENT Pupil (Motor): Pupils equal, EOMI Mallampati: II Teeth: Missing, Poor dentition Oral Opening: Greater than 3 - [employer] LOC: Oriented [employer] Motor: Normal RUE, Normal LUE, Normal RLE, Normal LLE, Normal Face [employer] Sensory: Normal: RUE, LUE, RLE, LLE, Face - Cardiac Rhythm: Regular Murmur: None - Pulmonary Breath Sounds: bilateral Clear Respiratory Effort: Symmetrical Anes Supervising Prov Stmt: Pt seen/evaluated, R&B Discussed, questions answered and consent obtained. - MD Ana
--- NOTE | 2017-12-18 15:55 | Discharge Summary ---
- NOTES TO OUTPATIENT PROVIDER Notes to Outpatient Provider: Patient admitted with intractable nausea and vomiting and DKA. Treated with IV insulin per DKA protocol with resolution of DKA. Then underwent upper GI endoscopy which showed presence of esophageal ulcers. Patient started on Carafate and PPI along with Reglan with improvement in symptoms. Is now tolerating oral diet well and his wishes to go home. Will be discharged and will have outpatient follow up with PCP and GI. Orders not resulted at time of discharge: Pending orders 12/18/17 13:15 Surgical Pathology [PTH] Routine Date of Encounter: 12/18/17 Time of Encounter: 15:51 - Discharge Diagnosis (1) DKA (diabetic ketoacidoses) Priority: Primary Status: Acute Qualifiers: Diabetes mellitus type: other specified (including PARVIN) Diabetes mellitus complication detail: without coma Qualified Code(s): E13.10 - Other specified diabetes mellitus with ketoacidosis without coma (2) Leukocytosis Priority: Secondary Status: Acute Qualifiers: Leukocytosis type: other Qualified Code(s): D72.828 - Other elevated white blood cell count (3) Hematemesis Priority: Secondary Status: Acute Qualifiers: Nausea presence: with nausea Qualified Code(s): K92.0 - Hematemesis (4) Unspecified open wound, right foot, subsequent encounter Priority: Secondary Status: Acute (5) Esophageal ulcer Priority: Secondary Status: Acute Qualifiers: Esophageal ulcer bleeding: without bleeding Qualified Code(s): K22.10 - Ulcer of esophagus without bleeding (6) Chronic gastritis Priority: Secondary Status: Chronic Qualifiers: Gastritis type: other gastritis Gastritis bleeding: without bleeding Qualified Code(s): K29.50 - Unspecified chronic gastritis without bleeding Hospital course: Mr. Iglesias is a 37 year old male patient with history of diabetes mellitus type 1 presented to the ER with complaints of abdominal pain nausea and vomiting. He did have some coffee-ground emesis. He was found to be in DKA and was admitted here for DKA. He was started on IV insulin drip and intravenous fluids per DKA protocol. His DKA has resolved overnight. He continued to have intractable nausea and vomiting this morning. As such neurology was consulted and patient underwent upper GI endoscopy. He was found to have esophageal ulcers and chronic gastritis. GI recommends placing patient on Carafate and PPI and outpatient follow-up. He also may have underlying diabetic gastroparesis and has responded well to Reglan. At this time is tolerating clear liquid diet and wishes to go home. He is not had any further episodes of hematemesis. He will be discharged today and will follow up outpatient with his primary care provider and yeast tender. He will continue clear liquid diet for now and advance as tolerated. Discharge discussed with: patient, nurse - Time Spent with Patient Total time spent providing and/or coordinating discharge services: Greater than 30 minutes (35 min) - Discharge Medications Prescriptions: Metoclopramide HCl 5 mg PO QIDAC #30 tablet Omeprazole [PriLOSEC] 20 mg PO BIDAC #60 capsule. Sucralfate [Carafate] 1 gm PO QIDAC #120 tablet Home Medications: Insulin ASPART [NovoLOG] 0 unit SQ TID PRN 11/11/17 [History] Insulin Glargine [Lantus] 40 unit IJ HS 11/11/17 [History] Gabapentin [Neurontin] 100 mg PO TID 12/12/17 [History] Paroxetine HCl [Paxil] 20 mg PO DAILY 12/12/17 [History] Metoclopramide HCl 5 mg PO QIDAC #30 tablet 12/18/17 [Rx] Omeprazole [PriLOSEC] 20 mg PO BIDAC #60 capsule. 12/18/17 [Rx] Sucralfate [Carafate] 1 gm PO QIDAC #120 tablet 12/18/17 [Rx] Allergies/Adverse Reactions: 3 Allergy/AdvReac Type Severity Reaction Status Date / Time Penicillins [PCN] Allergy Rash Verified 12/17/17 14:12 morphine AdvReac Anaphylaxis Verified 12/17/17 14:12 Date of admission: 12/17/17 17:29 Primary care physician: Narcisa Hummel, Consults: 12/18/17 11:40 Consult to Podiatry [CONS] Routine Consulting Provider: Podiatry [facility] Reason for Consult: S/P I & D with irrigation of DFUs to right foot x2 on per Dr. Stokse - wound vac intact - WBS 20.3 Time Notified: 11:42 Call Completed: Yes Discharging clinician: Cammy Branham Anticipated date of discharge: 12/18/17 - Constitutional Vitals: Temp Pulse Resp BP Pulse Ox 98.7 F 75 18 133/78 99 12/18/17 12:21 12/18/17 12:21 12/18/17 12:21 12/18/17 12:21 12/18/17 12:21 General appearance: Present: cooperative, A&O X 3, answers questions appropriately - Respiratory Respiratory exam: Present: CTAB. Absent: accessory muscle use, rales, rhonchi, wheezes - Cardiovascular Cardiovascular exam: Present: RRR, +S1, +S2. Absent: diastolic murmur, gallop, rubs, systolic murmur - GI/Abdominal GI/Abdominal exam: Present: normal bowel sounds, soft, tenderness (epigastric), no peritoneal signs. Absent: distended - Extremities Exam Extremities exam: Present: warm, radial pulses palpable and symmetrical. Absent : calf tenderness, cyanotic, pedal edema - Neurological Exam Neurological exam: Present: CN II-XII intact, oriented X3, no focal deficits. Absent: facial droop, speech deficit - Patient Status Disposition: Home, Self-Care Condition: Good Functional capacity at discharge: independent ambulation Overall status at discharge: patient is progressing back to baseline - Discharge Instructions Follow Up With: Narcisa Hummel CNP [Primary Care Provider] - 12/23/17 1:00 pm Tru Bowman MD [Partnered Physician] - (SENT WEB REQUEST ON 12-18-17 @ [id number]) - Diet and Activity Activity: increase activity as tolerated Diet: advance to your usual diet (clear liquids and advance to diabetic diet as tolerated)
[2017-12-18] MEDS ORDERED: Sucralfate 1 GM TABLET PO SCH (16:30)
[2017-12-18] MEDS ORDERED: Insulin DETEMIR 100 UNIT/ML X5UNITS SQ SCH (21:00)
[2017-12-18] MEDS ORDERED: Insulin LISPRO 300 UNITS/3 ML VIAL SQ SCH (21:00)
== END 2017-12-18 16:45 | disposition home or self-care (01) | DRG 420 ==
LOC: EMEROO 12:24 → 2NNU 17:29 → SUATTDRO 17:29 → 2NNU 18:19
PROVIDERS: ADMIT Internal Medicine; ATTEND Internal Medicine

== ENCOUNTER 2018-06-08 18:07 | Observation (INO) ==
--- NOTE | 2018-06-08 18:23 | Emergency Department Note ---
Disposition Clinical Impression: Suicidal ideation Disposition: Still a Patient Referrals: NONE,PCP [Primary Care Provider] - Forms: ED Satisfaction Letter Psych HPI - General Chief Complaint: ED Psychiatric Symptoms Stated Complaint: SI Time Seen by Provider: 06/08/18 18:15 Nursing Notes Reviewed: Yes Vital Signs Reviewed: Yes - History of Present Illness HPI Narrative: 38-year-old male presents emergency department with concern for suicidal attempt. Patient attempted to take 30 Klonopin pills yesterday. He placed them in his mouth. He spit them out. He was seen at [facility]. He was discharged from there. He wants to come here because he is concerned he has suicidal ideations at that time. No homicidal or visual hallucinations or auditory hallucinations. - Related Data Home Medications Medication Instructions Recorded Confirmed Insulin ASPART [NovoLOG] 0 unit SQ TID PRN 11/11/17 12/17/17 Insulin Glargine [Lantus] 40 unit IJ HS 11/11/17 12/17/17 Gabapentin [Neurontin] 100 mg PO TID 12/12/17 12/17/17 Paroxetine HCl [Paxil] 20 mg PO DAILY 12/12/17 12/17/17 Previous Rx's Medication Instructions Recorded Metoclopramide HCl 5 mg PO QIDAC #30 tablet 12/18/17 Omeprazole [PriLOSEC] 20 mg PO BIDAC #60 capsule. 12/18/17 Sucralfate [Carafate] 1 gm PO QIDAC #120 tablet 12/18/17 Allergies Allergy/AdvReac Type Severity Reaction Status Date / Time Penicillins [PCN] Allergy Rash Verified 06/08/18 19:04 morphine AdvReac Anaphylaxis Verified 06/08/18 19:04 All systems ED: reviewed and negative except as stated. Review of Systems: As Per HPI Constitutional: Denies: fever Cardiovascular: Denies: chest pain Respiratory: Denies: dyspnea Gastrointestinal: Denies: abdominal pain, nausea, vomiting Genitourinary: Denies: dysuria Musculoskeletal: Denies: back pain Neurological: Denies: headache Past Medical History - Past Medical History Medical history: Reports: diabetes Surgical history: Reports: no surgical history, non-contributory Psychiatric history: Reports: anxiety - Social History Smoking Status: Current every day smoker Smokeless Tobacco Status: No Alcohol use: Reports: none Drug use: Reports: marijuana Physical Exam - General Limitations: no limitations General appearance: alert - Head Head exam: normocephalic - Eye Eye exam: Present: EOMI - ENT ENT exam: normal oropharynx - Neck Neck exam: Present: trachea midline - Chest Chest inspection: Present: symmetric chest wall rise - Respiratory Respiratory exam: Present: normal lung sounds bilaterally. Absent: respiratory distress, accessory muscle use - Cardiovascular Cardiovascular exam: Present: regular rate, normal rhythm, normal heart sounds - Abdominal Exam Abdominal exam: Present: soft, Non-Tender. Absent: distention, guarding, rebound, rigidity - Extremities Exam Extremities exam: Present: full ROM - Back Exam Back exam: Present: full ROM - Neurological Exam Neurological exam: Present: alert, oriented X3 - Psychiatric Psychiatric exam: Present: normal affect, normal mood - Skin Skin exam: Present: warm, dry, intact, normal color Course Vital Signs Temperature 98.3 F 06/08/18 18:10 Pulse Rate 94 06/08/18 18:10 Respiratory Rate 16 06/08/18 18:10 Blood Pressure 168/95 06/08/18 18:10 O2 Sat by Pulse Oximetry 100 06/08/18 18:10 Temperature 98.3 F 06/08/18 18:56 Pulse Rate 94 06/08/18 18:56 Respiratory Rate 16 06/08/18 18:56 Blood Pressure 168/95 06/08/18 18:56 O2 Sat by Pulse Oximetry 100 06/08/18 18:56 Oxygen Delivery Oxygen Delivery Room Air Psych - MDM Narrative Medical decision making narrative: 38-year-old male presents emergency department with concern for suicide attempt yesterday. Patient was evaluated at an outside facility yesterday and discharged. He request for help. Patient medically cleared for psychiatric evaluation. - Lab Data Result diagrams: 06/08/18 18:42 06/08/18 18:42 Lab Results 06/08/18 06/08/18 06/08/18 Range/Units 18:42 18:42 18:54 WBC 5.9 (4.3-11.1) K/mcL RBC 4.03 L (4.19-5.50) M/mcL Hgb 12.6 L (12.9-16.9) g/dL Hct 37.2 L (37.5-50.1) % MCV 92.3 (83.0-100.0) fL MCH 31.3 (28.0-33.3) pg MCHC 33.9 (31.6-35.5) g/dL RDW 12.4 (11.5-14.5) % Plt Count 194 (140-400) K/mcL MPV 10.2 (9.4-12.4) fL Immature Gran % 0.2 (0-4) % Seg Neutrophils % 49.3 % Lymphocytes % 40.0 % Monocytes % 6.6 % Eosinophils % 3.4 % Basophils % 0.5 % Neutrophils # 2.9 (1.6-8.9) K/mcL Lymphocytes # 2.4 (0.6-4.6) K/mcL Monocytes # 0.4 (0.0-1.3) K/mcL Eosinophils # 0.2 (0.0-0.6) K/mcL Basophils # 0.0 (0.0-0.2) K/mcL Sodium 137 (136-145) mEq/L Potassium 3.8 (3.5-5.1) mEq/L Chloride 101 (98-107) mEq/L Carbon Dioxide 28 (23-29) mEq/L BUN 11 (6-20) mg/dL Creatinine 0.65 L (0.70-1.30) mg/dL Est GFR ( Amer) > 60 (> 60) Est GFR (Non-Af Amer) > 60 (> 60) BUN/Creatinine Ratio 17 (6-26) Glucose 202 H (70-105) mg/dL Calculated Osmolality 289 (280-300) Calcium 9.3 (8.6-10.3) mg/dL Urine Color Yellow (Yellow) Urine Clarity Clear (Clear) Urine pH 7.0 (5.0-8.0) pH Units Ur Specific [place] 1.027 H (1.010-1.025) Urine Protein Trace (Neg-Trace) mg/dL Urine Glucose (UA) Normal (Normal) mg/dL Urine Ketones Negative (Negative) mg/dL Urine Blood Negative (Negative) Urine Nitrite Negative (Negative) Urine Bilirubin Negative (Negative) Urine Urobilinogen Normal (Normal) mg/dL Ur Leukocyte Esterase Negative (Negative) Urine Microscopic RBC 3-5 H (0-3) per hpf Urine Microscopic WBC 0-3 (0-3) per hpf Ur Squamous Epith Cells Moderate H (None-Few) per lpf Urine Bacteria None Seen (None-Few) per hpf Hyaline Casts None Seen (None-Few) per lpf Salicylates < 2.5 L (15.0-30.0) mg/dL Urine Opiates Screen (Hygeuj=251) ng/mL Acetaminophen < 10 L (10-20) mcg/mL Ur Barbiturates Screen (Hggume=861) ng/mL Ur Phencyclidine Scrn (Cutoff=25) ng/mL Ur Amphetamines Screen (Qscvvs=1805) ng/mL U Benzodiazepines Scrn (Fstkhx=531) ng/mL Urine Cocaine Screen (Cutoff= 300) ng/mL U Marijuana (THC) Screen (Cutoff = 50) ng/mL Ur Drug Screen Interp Ethyl Alcohol < 10 (Less than 10) mg/dL 06/08/18 Range/Units 18:55 WBC (4.3-11.1) K/mcL RBC (4.19-5.50) M/mcL Hgb (12.9-16.9) g/dL Hct (37.5-50.1) % MCV (83.0-100.0) fL MCH (28.0-33.3) pg MCHC (31.6-35.5) g/dL RDW (11.5-14.5) % Plt Count (140-400) K/mcL MPV (9.4-12.4) fL Immature Gran % (0-4) % Seg Neutrophils % % Lymphocytes % % Monocytes % % Eosinophils % % Basophils % % Neutrophils # (1.6-8.9) K/mcL Lymphocytes # (0.6-4.6) K/mcL Monocytes # (0.0-1.3) K/mcL Eosinophils # (0.0-0.6) K/mcL Basophils # (0.0-0.2) K/mcL Sodium (136-145) mEq/L Potassium (3.5-5.1) mEq/L Chloride (98-107) mEq/L Carbon Dioxide (23-29) mEq/L BUN (6-20) mg/dL Creatinine (0.70-1.30) mg/dL Est GFR ( Amer) (> 60) Est GFR (Non-Af Amer) (> 60) BUN/Creatinine Ratio (6-26) Glucose (70-105) mg/dL Calculated Osmolality (280-300) Calcium (8.6-10.3) mg/dL Urine Color (Yellow) Urine Clarity (Clear) Urine pH (5.0-8.0) pH Units Ur Specific [place] (1.010-1.025) Urine Protein (Neg-Trace) mg/dL Urine Glucose (UA) (Normal) mg/dL Urine Ketones (Negative) mg/dL Urine Blood (Negative) Urine Nitrite (Negative) Urine Bilirubin (Negative) Urine Urobilinogen (Normal) mg/dL Ur Leukocyte Esterase (Negative) Urine Microscopic RBC (0-3) per hpf Urine Microscopic WBC (0-3) per hpf Ur Squamous Epith Cells (None-Few) per lpf Urine Bacteria (None-Few) per hpf Hyaline Casts (None-Few) per lpf Salicylates (15.0-30.0) mg/dL Urine Opiates Screen Negative (Unudjl=789) ng/mL Acetaminophen (10-20) mcg/mL Ur Barbiturates Screen Negative (Mkgaag=569) ng/mL Ur Phencyclidine Scrn Negative (Cutoff=25) ng/mL Ur Amphetamines Screen Negative (Inrepp=1063) ng/mL U Benzodiazepines Scrn Positive H (Yaazdg=045) ng/mL Urine Cocaine Screen Negative (Cutoff= 300) ng/mL U Marijuana (THC) Screen Positive H (Cutoff = 50) ng/mL Ur Drug Screen Interp See Below Ethyl Alcohol (Less than 10) mg/dL - EKG Data EKG attestation: Yes I reviewed and interpreted this EKG. Psychiatric Medical Clearance - Medical Clearance Checklist Medical History: No Social History Section defined Current Vitals: Last Vital Signs Temp 98.3 F 06/08/18 18:56 Pulse 94 06/08/18 18:56 Resp 16 06/08/18 18:56 BP 168/95 06/08/18 18:56 Pulse Ox 100 06/08/18 18:56 Psychiatric Lab Panel: Drug Levels and Toxicity 06/08/18 06/08/18 18:42 18:55 Urine Opiates Screen Negative Acetaminophen < 10 L Ur Barbiturates Screen Negative Ur Phencyclidine Scrn Negative Ur Amphetamines Screen Negative U Benzodiazepines Scrn Positive H Urine Cocaine Screen Negative U Marijuana (THC) Screen Positive H Ethyl Alcohol < 10 Abnormal Labs: Abnormal lab results RBC 4.03 M/mcL (4.19-5.50) L 06/08/18 18:42 Hgb 12.6 g/dL (12.9-16.9) L 06/08/18 18:42 Hct 37.2 % (37.5-50.1) L 06/08/18 18:42 Creatinine 0.65 mg/dL (0.70-1.30) L 06/08/18 18:42 Glucose 202 mg/dL (70-105) H 06/08/18 18:42 Ur Specific [place] 1.027 (1.010-1.025) H 06/08/18 18:54 Urine Microscopic RBC 3-5 per hpf (0-3) H 06/08/18 18:54 Ur Squamous Epith Cells Moderate per lpf (None-Few) H 06/08/18 18:54 Salicylates < 2.5 mg/dL (15.0-30.0) L 06/08/18 18:42 Acetaminophen < 10 mcg/mL (10-20) L 06/08/18 18:42 U Benzodiazepines Scrn Positive ng/mL (Gaizyz=141) H 06/08/18 18:55 U Marijuana (THC) Screen Positive ng/mL (Cutoff = 50) H 06/08/18 18:55 Statement of Medical Clearance: I have evaluated the patient, reviewed diagnostic information, and certify that the patient's medical condition is sufficiently stable that transfer to the psychiatric unit does not pose a significant risk of deterioration.
[2018-06-08 18:54] LABS: Basophils % 0.5 %; Eosinophils # 0.2 K/mcL (0.0-0.6); Eosinophils % 3.4 %; Hematocrit 37.2 % (37.5-50.1); Hemoglobin 12.6 g/dL (12.9-16.9); Immature Granulocytes % 0.2 % (0-4); Lymphocytes # 2.4 K/mcL (0.6-4.6); Mean Corpuscular HGB Conc 33.9 g/dL (31.6-35.5); Mean Corpuscular Hemoglobin 31.3 pg (28.0-33.3); Mean Corpuscular Volume 92.3 fL (83.0-100.0); Mean Platelet Volume 10.2 fL (9.4-12.4); Monocytes # 0.4 K/mcL (0.0-1.3); Monocytes % 6.6 %; Neutrophils # 2.9 K/mcL (1.6-8.9); Platelet Count 194 K/mcL (140-400); Red Blood Count 4.03 M/mcL (4.19-5.50); Red Cell Distribution Width 12.4 % (11.5-14.5); Segmented Neutrophils % 49.3 %
[2018-06-08 19:06] LABS: Bilirubin,Urine Negative (Negative); Blood,Urine Negative (Negative); Clarity,Urine Clear (Clear); Color,Urine Yellow (Yellow); Glucose,Urine (UA) Normal (Normal); Ketones,Urine Negative (Negative); Leukocyte Esterase,Urine Negative (Negative); Nitrite,Urine Negative (Negative); Protein,Urine Trace mg/dL (Neg-Trace); Specific Gravity,Urine 1.027 (1.010-1.025); Urobilinogen,Urine Normal (Normal)
[2018-06-08 19:07] LABS: Bacteria,Urine None Seen per hpf (None-Few); Hyaline Casts,Urine None Seen per lpf (None-Few); Squamous Epithelial Cell,Urine Moderate per lpf (None-Few); WBC,Urine 0-3 per hpf (0-3)
[2018-06-08 19:16] LABS: Acetaminophen < 10 mcg/mL (10-20); BUN/Creatinine Ratio 17 (6-26); Blood Urea Nitrogen 11 mg/dL (6-20); Calcium 9.3 mg/dL (8.6-10.3); Carbon Dioxide 28 mEq/L (23-29); Chloride 101 mEq/L (98-107); Ethanol < 10 mg/dL (Less than 10); Glucose 202 mg/dL (70-105); Osmolality,Calculated 289 (280-300); Potassium 3.8 mEq/L (3.5-5.1); Salicylate < 2.5 mg/dL (15.0-30.0); Sodium 137 mEq/L (136-145); eGFR For Non-African Americans > 60 (> 60)
[2018-06-08 19:21] LABS: Amphetamine Screen,Urine Negative ng/mL (Cutoff=1000); Barbiturate Screen,Urine Negative ng/mL (Cutoff=200); Benzodiazepines Screen,Urine Positive ng/mL (Cutoff=200); Cannabinoid Screen,Urine Positive ng/mL (Cutoff = 50); Cocaine Screen,Urine Negative ng/mL (Cutoff= 300); Opiate Screen,Urine Negative ng/mL (Cutoff=300); Phencyclidine Screen,Urine Negative ng/mL (Cutoff=25)
--- NOTE | 2018-06-08 19:58 | Emergency Department Note ---
Disposition Clinical Impression: Suicidal ideation Disposition: Still a Patient Referrals: NONE,PCP [Primary Care Provider] - General Adult HPI - General Chief complaint: ED Psychiatric Symptoms Stated complaint: SI Time Seen by Provider: 06/08/18 18:15 Source: patient Limitations: no limitations - History of Present Illness Pain Scale: 0 - Related Data Home Medications Medication Instructions Recorded Confirmed Insulin ASPART [NovoLOG] 0 unit SQ TID PRN 11/11/17 12/17/17 Insulin Glargine [Lantus] 40 unit IJ HS 11/11/17 12/17/17 Gabapentin [Neurontin] 100 mg PO TID 12/12/17 12/17/17 Paroxetine HCl [Paxil] 20 mg PO DAILY 12/12/17 12/17/17 Previous Rx's Medication Instructions Recorded Metoclopramide HCl 5 mg PO QIDAC #30 tablet 12/18/17 Omeprazole [PriLOSEC] 20 mg PO BIDAC #60 capsule. 12/18/17 Sucralfate [Carafate] 1 gm PO QIDAC #120 tablet 12/18/17 Allergies Allergy/AdvReac Type Severity Reaction Status Date / Time Penicillins [PCN] Allergy Rash Verified 06/08/18 19:04 morphine AdvReac Anaphylaxis Verified 06/08/18 19:04 Past Medical History - Past Medical History Medical history: Reports: diabetes, other Surgical history: Reports: no surgical history, non-contributory Psychiatric history: Reports: anxiety, bipolar, depression - Social History Smoking Status: Current every day smoker Smokeless Tobacco Status: No Alcohol use: Reports: none Drug use: Reports: marijuana Physical Exam - General Limitations: no limitations General appearance: alert Course Vital Signs Temperature 98.3 F 06/08/18 18:10 Pulse Rate 94 06/08/18 18:10 Respiratory Rate 16 06/08/18 18:10 Blood Pressure 168/95 06/08/18 18:10 O2 Sat by Pulse Oximetry 100 06/08/18 18:10 Temperature 98.3 F 06/08/18 18:56 Pulse Rate 94 06/08/18 18:56 Respiratory Rate 16 06/08/18 18:56 Blood Pressure 168/95 06/08/18 18:56 O2 Sat by Pulse Oximetry 100 06/08/18 18:56 Oxygen Delivery Oxygen Delivery Room Air Medical Decision Making - Lab Data Result diagrams: 06/08/18 18:42 10/21/18 18:42 Lab Results 06/08/18 06/08/18 06/08/18 Range/Units 18:42 18:42 18:54 WBC 5.9 (4.3-11.1) K/mcL RBC 4.03 L (4.19-5.50) M/mcL Hgb 12.6 L (12.9-16.9) g/dL Hct 37.2 L (37.5-50.1) % MCV 92.3 (83.0-100.0) fL MCH 31.3 (28.0-33.3) pg MCHC 33.9 (31.6-35.5) g/dL RDW 12.4 (11.5-14.5) % Plt Count 194 (140-400) K/mcL MPV 10.2 (9.4-12.4) fL Immature Gran % 0.2 (0-4) % Seg Neutrophils % 49.3 % Lymphocytes % 40.0 % Monocytes % 6.6 % Eosinophils % 3.4 % Basophils % 0.5 % Neutrophils # 2.9 (1.6-8.9) K/mcL Lymphocytes # 2.4 (0.6-4.6) K/mcL Monocytes # 0.4 (0.0-1.3) K/mcL Eosinophils # 0.2 (0.0-0.6) K/mcL Basophils # 0.0 (0.0-0.2) K/mcL Sodium 137 (136-145) mEq/L Potassium 3.8 (3.5-5.1) mEq/L Chloride 101 (98-107) mEq/L Carbon Dioxide 28 (23-29) mEq/L BUN 11 (6-20) mg/dL Creatinine 0.65 L (0.70-1.30) mg/dL Est GFR ( Amer) > 60 (> 60) Est GFR (Non-Af Amer) > 60 (> 60) BUN/Creatinine Ratio 17 (6-26) Glucose 202 H (70-105) mg/dL Calculated Osmolality 289 (280-300) Calcium 9.3 (8.6-10.3) mg/dL Urine Color Yellow (Yellow) Urine Clarity Clear (Clear) Urine pH 7.0 (5.0-8.0) pH Units Ur Specific [place] 1.027 H (1.010-1.025) Urine Protein Trace (Neg-Trace) mg/dL Urine Glucose (UA) Normal (Normal) mg/dL Urine Ketones Negative (Negative) mg/dL Urine Blood Negative (Negative) Urine Nitrite Negative (Negative) Urine Bilirubin Negative (Negative) Urine Urobilinogen Normal (Normal) mg/dL Ur Leukocyte Esterase Negative (Negative) Urine Microscopic RBC 3-5 H (0-3) per hpf Urine Microscopic WBC 0-3 (0-3) per hpf Ur Squamous Epith Cells Moderate H (None-Few) per lpf Urine Bacteria None Seen (None-Few) per hpf Hyaline Casts None Seen (None-Few) per lpf Salicylates < 2.5 L (15.0-30.0) mg/dL Urine Opiates Screen (Dusbcq=515) ng/mL Acetaminophen < 10 L (10-20) mcg/mL Ur Barbiturates Screen (Jonaqq=783) ng/mL Ur Phencyclidine Scrn (Cutoff=25) ng/mL Ur Amphetamines Screen (Txkups=8409) ng/mL U Benzodiazepines Scrn (Cuqmnc=704) ng/mL Urine Cocaine Screen (Cutoff= 300) ng/mL U Marijuana (THC) Screen (Cutoff = 50) ng/mL Ur Drug Screen Interp Ethyl Alcohol < 10 (Less than 10) mg/dL 06/08/18 Range/Units 18:55 WBC (4.3-11.1) K/mcL RBC (4.19-5.50) M/mcL Hgb (12.9-16.9) g/dL Hct (37.5-50.1) % MCV (83.0-100.0) fL MCH (28.0-33.3) pg MCHC (31.6-35.5) g/dL RDW (11.5-14.5) % Plt Count (140-400) K/mcL MPV (9.4-12.4) fL Immature Gran % (0-4) % Seg Neutrophils % % Lymphocytes % % Monocytes % % Eosinophils % % Basophils % % Neutrophils # (1.6-8.9) K/mcL Lymphocytes # (0.6-4.6) K/mcL Monocytes # (0.0-1.3) K/mcL Eosinophils # (0.0-0.6) K/mcL Basophils # (0.0-0.2) K/mcL Sodium (136-145) mEq/L Potassium (3.5-5.1) mEq/L Chloride (98-107) mEq/L Carbon Dioxide (23-29) mEq/L BUN (6-20) mg/dL Creatinine (0.70-1.30) mg/dL Est GFR ( Amer) (> 60) Est GFR (Non-Af Amer) (> 60) BUN/Creatinine Ratio (6-26) Glucose (70-105) mg/dL Calculated Osmolality (280-300) Calcium (8.6-10.3) mg/dL Urine Color (Yellow) Urine Clarity (Clear) Urine pH (5.0-8.0) pH Units Ur Specific [place] (1.010-1.025) Urine Protein (Neg-Trace) mg/dL Urine Glucose (UA) (Normal) mg/dL Urine Ketones (Negative) mg/dL Urine Blood (Negative) Urine Nitrite (Negative) Urine Bilirubin (Negative) Urine Urobilinogen (Normal) mg/dL Ur Leukocyte Esterase (Negative) Urine Microscopic RBC (0-3) per hpf Urine Microscopic WBC (0-3) per hpf Ur Squamous Epith Cells (None-Few) per lpf Urine Bacteria (None-Few) per hpf Hyaline Casts (None-Few) per lpf Salicylates (15.0-30.0) mg/dL Urine Opiates Screen Negative (Dbsdni=672) ng/mL Acetaminophen (10-20) mcg/mL Ur Barbiturates Screen Negative (Sjncra=906) ng/mL Ur Phencyclidine Scrn Negative (Cutoff=25) ng/mL Ur Amphetamines Screen Negative (Qovzyj=4089) ng/mL U Benzodiazepines Scrn Positive H (Ghsbhx=884) ng/mL Urine Cocaine Screen Negative (Cutoff= 300) ng/mL U Marijuana (THC) Screen Positive H (Cutoff = 50) ng/mL Ur Drug Screen Interp See Below Ethyl Alcohol (Less than 10) mg/dL Attestation Statement - Attestation Attestation: I examined this patient and [facility]. I agree with the documented findings, disposition and treatment plan as described except to the extent set forth below. 38 year old male presents to the ED with complaints of SI and states tht he is having increased thoughts of hurting himself and was seen at [facility] yesterday and evlauted and sent home. He has been medically cleared and 1A has been consulted.
[2018-06-08] MEDS ORDERED: Mag Hydrox/Al Hydrox/Simeth 30 ML UDC PO PRN (23:33)
[2018-06-08] MEDS ORDERED: Haloperidol Lactate 5 MG/ML VIAL IM PRN (23:33)
[2018-06-08] MEDS ORDERED: MOM Conc 10 ML UD.LIQ PO PRN (23:33)
[2018-06-08] MEDS ORDERED: Ibuprofen 400 MG TABLET PO PRN (23:33)
[2018-06-08] MEDS ORDERED: *HR* LORazepam 1 MG TABLET PO PRN (23:33)
[2018-06-08] MEDS ORDERED: hydrOXYzine pamoate 25 MG CAPSULE PO PRN (23:33)
[2018-06-08] MEDS ORDERED: *HR* LORazepam 2 MG/ML VIAL IM PRN (23:33)
[2018-06-08] MEDS ORDERED: traZODone 50 MG TABLET PO PRN (23:33)
[2018-06-09 01:41] VITALS: BP 106/74
[2018-06-09] MEDS ORDERED: Insulin DETEMIR 100 UNIT/ML X5UNITS SQ ONE (04:22)
[2018-06-09] MEDS ORDERED: D5% in Water 1,000 ML IVC PRN ×2 (04:25→05:35)
[2018-06-09] MEDS ORDERED: Dextrose Gel 15 GM/37.5 ML TUBE PO PRN ×4 (04:25→05:35)
[2018-06-09] MEDS ORDERED: *HR* Dextrose 50 % in Water (Syg) 50 ML SYRINGE IVP PRN ×2 (04:25→05:35)
--- NOTE | 2018-06-09 05:58 | Internal Medicine Consult Note ---
Date of Encounter: 06/09/18 Time of Encounter: 05:21 - Assessment and plan (1) Type 1 diabetes mellitus Current Visit: No Status: Acute Assessment and plan: Recommend long-acting insulin 15 units at night. Low-dose sliding scale insulin with meals and at night After sugars with meals and at night Hypoglycemia orders in place Diabetic diet I discussed the plan with the patient directly, and he agreed with this regimen. Welcome to reconsult hospitalists if further difficulty in controlling patient's blood sugars. Qualifiers: Diabetes mellitus complication status: with unspecified complications Qualified Code(s): E10.8 - Type 1 diabetes mellitus with unspecified com plications - Time Spent With Patient Total time spent is greater than 50% in coordination of care (as documented) at patient's floor/unit and/or counseling patient: less than 15 minutes Internal Medicine - CN: HPI - Data of Consult Patient: new to practice Consult date: 06/09/18 Requesting Physician: Randolph Abrams MD - Consult Narrative Reason for consult: Diabetes management History of present illness: Mr. Iglesias is a 38 year old male Patient is a type I diabetic, we are called to assist with dosing patient's insulin. Patient has had some issues with control, nurses state that he has had sugars as low as 61,, but at last check he was over 200. He has a recent history of diabetic foot ulcer, which is healing well. Patient denies other complaints at this time, he was resting comfortably in the hospital bed upon my evaluation. Past Med Surg Social Fam HX - Past Medical History Medical history: diabetes Additional medical history: Type 1 Psychiatric history: anxiety - Past Surgical History Surgical History: no surgical history, non-contributory Additional surgical history: Surgery to back in 2007 and October 2017 had surgery to foot due to diabetic foot ulcer, currently healed. - Social History Smoking Status: Current every day smoker Packs per day: 1 Smokeless Tobacco Status: No Alcohol use: none Drug use: marijuana - Family History Mother Living Status: Still Living Hx Family Cardiac Disorders: Yes (HTN) Hx Family Respiratory Disorders: No Hx Family Cancer: No Hx Family GI Disorders: No Hx Family Endocrine Disorder: No Hx Family Neuromuscular Disorders: No Hx Family Neurologic Disorders: No Hx Family HEENT Disorders: No Hx Family Autoimmune Disorders: No Father Living Status: Hx Family Endocrine Disorder: Yes (Diabeties) Internal Medicine - CN: Meds Insulin ASPART [NovoLOG] 0 unit SQ TID PRN 11/11/17 [History] Gabapentin [Neurontin] 100 mg PO TID 12/12/17 [History] Paroxetine HCl [Paxil] 20 mg PO DAILY 12/12/17 [History] Metoclopramide HCl 5 mg PO QIDAC #30 tablet 12/18/17 [Rx] Omeprazole [PriLOSEC] 20 mg PO BIDAC #60 capsule. 12/18/17 [Rx] Sucralfate [Carafate] 1 gm PO QIDAC #120 tablet 12/18/17 [Rx] 3 Allergy/AdvReac Type Severity Reaction Status Date / Time Penicillins [PCN] Allergy Rash Verified 06/08/18 19:04 morphine AdvReac Anaphylaxis Verified 06/08/18 19:04 Hospitalist - CN: Exam - Constitutional Vitals: Temp Pulse Resp BP Pulse Ox 98.2 F 69 12 106/74 97 06/09/18 00:25 06/09/18 00:25 06/09/18 00:25 06/09/18 00:25 06/08/18 23:33 General appearance IM: Present: cooperative, pleasant, no acute distress, answers questions appropriately Exam: As above - Head Head exam: Present: normal inspection Internal Medicine - CN: Reslt - Labs CBC & Chem 7: 06/08/18 18:42 06/08/18 18:42 Labs: Short CBC 06/08/18 Range/Units 18:42 WBC 5.9 (4.3-11.1) K/mcL Hgb 12.6 L (12.9-16.9) g/dL Hct 37.2 L (37.5-50.1) % Plt Count 194 (140-400) K/mcL Neutrophils # 2.9 (1.6-8.9) K/mcL BMP 06/08/18 18:42 Sodium 137 Potassium 3.8 Chloride 101 Carbon Dioxide 28 BUN 11 Creatinine 0.65 L Glucose 202 H Calcium 9.3 Urine 06/08/18 Range/Units 18:54 Urine Color Yellow (Yellow) Urine Clarity Clear (Clear) Urine pH 7.0 (5.0-8.0) pH Units Ur Specific [place] 1.027 H (1.010-1.025) Urine Protein Trace (Neg-Trace) mg/dL Urine Glucose (UA) Normal (Normal) mg/dL Consult Discharge Plan - Plan Referrals: NONE,PCP [Primary Care Provider] -
[2018-06-09] MEDS ORDERED: Nicotine 21 MG PATCH.TD24 TD SCH (09:00)
[2018-06-09] MEDS: Insulin LISPRO 300 UNITS/3 ML VIAL SQ SCH ×2 (10:19→12:19)
--- NOTE | 2018-06-09 11:53 | Discharge Summary ---
Date of Encounter: 06/09/18 Time of Encounter: 11:50 Diagnosis - Discharge Diagnosis (1) Major depressive disorder, single episode, severe without psychotic features Priority: Primary Status: Acute (2) Suicidal ideation Priority: Secondary Status: Resolved (3) Panic disorder without agoraphobia Priority: Secondary Status: Acute (4) Tobacco abuse Status: Acute Medications - Discharge Medications Insulin ASPART [NovoLOG] 0 unit SQ TID PRN 11/11/17 [History] Gabapentin [Neurontin] 100 mg PO TID 12/12/17 [History] Paroxetine HCl [Paxil] 20 mg PO DAILY 12/12/17 [History] Metoclopramide HCl 5 mg PO QIDAC #30 tablet 12/18/17 [Rx] Omeprazole [PriLOSEC] 20 mg PO BIDAC #60 capsule. 12/18/17 [Rx] Sucralfate [Carafate] 1 gm PO QIDAC #120 tablet 12/18/17 [Rx] LORazepam [Ativan] 1 mg PO Q4HR PRN #0 tablet 06/09/18 [Rx] Allergy/AdvReac Type Severity Reaction Status Date / Time Penicillins [PCN] Allergy Rash Verified 06/08/18 19:04 morphine AdvReac Anaphylaxis Verified 06/08/18 19:04 Results Procedures and tests throughout hospitalization: Completed Lab Orders Category Date Time Status Acetaminophen Stat Lab 06/08/18 18:42 Completed Basic Metabolic Panel Stat Lab 06/08/18 18:42 Completed Complete Blood Count [HEME] Stat Lab 06/08/18 18:42 Completed Ethanol Stat Lab 06/08/18 18:42 Completed Salicylate Stat Lab 06/08/18 18:42 Completed Provider Date of admission: 06/08/18 23:18 Primary care physician: PCP NONE Consults: 06/08/18 23:36 Consult to Hospitalist [CONS] Routine Consulting Provider: Hospitalist Matti Reason for Consult: Patient needs insulin recommendations. Time Notified: 23:37 Call Completed: Yes Discharging clinician: Zeferino Nagy Psychiatry Exam - Constitutional Vitals: Temp Pulse Resp BP Pulse Ox 98.2 F 69 12 106/74 97 06/09/18 00:25 06/09/18 00:25 06/09/18 00:25 06/09/18 00:25 06/08/18 23:33 General appearance: age & developmentally appropriate, well-groomed, well- nourished - Musculoskeletal Gait: normal Station: relaxed Strength & Tone: normal for patient - Psychiatric Patient Orientation: Yes Person, Yes Time, Yes Place Level of alertness: Alert Behavior: calm, cooperative Psychomotor activity: Normal Eye Contact: Maintains Eye Contact Mood Description: Euthymic/stable Affect description: congruent with mood, full range Speech Volume: Normal Speech pattern: normal rate, normal rhythm, normal tone, fluent, spontaneous Language & Vocabulary: consistent with education Thought Process: Linear, Goal Oriented Thought Content: No Suicidal ideation, No Homicidal ideation, No Overt delusions Perceptual Disturbances: No Auditory hallucinations, No Visual hallucinations Attention Span Ability: Capable of Focused Attention Memory Description: Grossly Intact Patient Reliability: Reliable Historian Fund of knowledge: Yes abstraction ability, Yes aware of current events Intelligence Estimate: Average Judgment: Limited Insight: Partial Hospital Course Hospital course: Mr. Iglesias is a 38 year old male ID the patient is a 38-year-old white male who was admitted from the ER. Chief complaint: I told them I was suicidal in thoughts but not in action. I had a really bad panic attack and things went downhill from there. History of present illness: Since October 22 the patient has had problems with major depression. He has been under treatment and on the day of admission to observation he had an argument with his mother. The patient had a panic attack.. His mother said that she could not handle it. She said that he needed to leave. The patient felt like it was a threat to him. He did not want to kill himself. Nonetheless in front of his mother he put 30 Klonopin in his mouth. These were later discarded. The patient was taken to [facility]. Then he went home to make arrangements to move his stuff to his cousin's house so that he can move in with his maternal grandmother. Nonetheless others felt that he should come for evaluation and the patient was evaluated overnight. The patient still feels like a burden but feels better and no suicidal ideation at the time of evaluation. The patient spit out the pills so there was no absorption rate The patient has not been diagnosed with depression before age 38 he has no drug problem no alcohol problems no prior history of suicide no rehabilitation. The patient notes that his mother is a big trigger. She treats him like a little kid. He has had DKA and this is been hard for her. Since January he has become more depressed. This is when he had to wear a wound vacuum. He has low mood and low self-esteem diminished interest guilt worries about his body felt diminished energy poor appetite little or no sleep because he is afraid of hypoglycemia at night he had no suicidal ideation but had morbid thoughts as described above. Since October the patient has had multiple hospitalizations for medical conditions. The patient has been seen by Dr. Benton in the community and is scheduled for counseling. Past medical history: Surgery: Right foot debridement, oral surgery, 2007 back surgery Illnesses: Diabetes mellitus type 1's, cellulitis the right foot, esophageal ulcer, allergies penicillin, morphine Paxil was increased to 30 mg per day clonazepam 0.5 mg added omeprazole sildenafil or other medicines. Family history: Mother is on Paxil, maternal grandmother is on Paxil, maternal uncle is on Paxil and trouble with alcohol. It is negative for suicide or drug abuse Social history: The patient left in 2016 he had become too sick to work or to travel. 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 His daughter is 18 turning 19. 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 He has an appointment with Dr. Benton June 23 he reports his maternal grandmother is willing to help him. The patient now has insurance. He has diabetic neuropathy. 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 Discharge plan. The patient I discussed smoking. He does not wish to quit smoking or continue nicotine replacement. The patient I discussed his discharge follow-up which is already arranged. The patient wanted more information on medical marijuana this will be provided from the website [place]. The patient will be given Ativan 1 mg #7 no refill to take 1 per day as needed for panic attacks. He is used those clonazepam and this will tide him over until his next appointment. Time spent discussing smoking cessation with patient: 3 to 10 minutes Does patient wish to continue nicotine replacement upon disc: No - Time Spent with Patient Total time spent providing and/or coordinating discharge services: Greater than 30 minutes Assessment and Plan - Patient/Caregiver Discharge Instructions Activity: resume usual activities as tolerated Diet: diabetic diet - Follow up Plan Follow up with: NONE,PCP [Primary Care Provider] - Functional capacity at discharge: independent ambulation Overall status at discharge: Stable Disposition: Home, Self-Care Quality - Multiple Antipsychotics Patient discharged on 2 or more antipsychotic medications: No Procedures - Procedures Procedures: Medication Management, Crisis Stabilization, Supportive Therapy, Psychoeducational Therapy
--- NOTE | 2018-06-09 12:10 | Discharge Summary ---
Date of Encounter: 06/09/18 Time of Encounter: 11:50 History of Present Illness Chief complaint: I was not suicidal Admitted From: Emergency Dept History of Present Illness: Mr. Iglesias is a 38 year old male He see the history in the other note this date discharge summary. Past Med Surg Social Fam HX - Past Medical History Medical history: diabetes - Past Psychiatric History Psychiatric history: Reports: depression, panic disorder Family psychiatric history: Yes Family History of Suicide: None - Past Surgical History Surgical History: no surgical history, non-contributory - Social History Smoking Status: Current every day smoker Smokeless Tobacco Status: No Alcohol use: none Drug use: marijuana Occupational status: previously employed Current living situation: Home - Independent, With Family Activity Level: Independent ambulation Recent Out of Country Travel Within the Last 8 Weeks: No Exposure or Possible Exposure to Illness During Travel: No - Family History Mother Living Status: Still Living Hx Family Cardiac Disorders: Yes (HTN) Hx Family Respiratory Disorders: No Hx Family Cancer: No Hx Family GI Disorders: No Hx Family Endocrine Disorder: No Hx Family Neuromuscular Disorders: No Hx Family Neurologic Disorders: No Hx Family HEENT Disorders: No Hx Family Autoimmune Disorders: No Father Living Status: Hx Family Endocrine Disorder: Yes (Diabeties) Medications - Discharge Medications Insulin ASPART [NovoLOG] 0 unit SQ TID PRN 11/11/17 [History] Gabapentin [Neurontin] 100 mg PO TID 12/12/17 [History] Paroxetine HCl [Paxil] 20 mg PO DAILY 12/12/17 [History] Metoclopramide HCl 5 mg PO QIDAC #30 tablet 12/18/17 [Rx] Omeprazole [PriLOSEC] 20 mg PO BIDAC #60 capsule.dr 12/18/17 [Rx] Sucralfate [Carafate] 1 gm PO QIDAC #120 tablet 12/18/17 [Rx] LORazepam [Ativan] 1 mg PO Q4HR PRN #0 tablet 06/09/18 [Rx] Allergy/AdvReac Type Severity Reaction Status Date / Time Penicillins [PCN] Allergy Rash Verified 06/08/18 19:04 morphine AdvReac Anaphylaxis Verified 06/08/18 19:04 Review of Systems Constitutional: Reports: weight change Eyes: Denies: eye pain, vision change Ears, Nose, Throat: Denies: ear pain, throat pain, dental pain, hearing loss, congestion Cardiovascular: Denies: chest pain, palpitations, dyspnea on exertion Respiratory: Denies: cough, dyspnea, wheezes Gastrointestinal: Reports: nausea Genitourinary male: Denies: urgency, dysuria, frequency, genital lesions Musculoskeletal: Denies: joint swelling, joint pain Integumentary: Denies: rash, lesions, pruritus Neurological: Reports: numbness Psychiatric: Reports: depression, anxiety, panic attacks Endocrine: Reports: fatigue Hematologic/Lymphatic: Denies: easy bruising, lymphadenopathy Allergic/Immunologic: Denies: urticaria, itchy eyes Exam - HEENT Head exam IM: Present: atraumatic Eye exam IM: Present: EOMI, normal appearance, PERRL ENT exam IM: Present: normal exam - Neurological Neurological exam: Present: CN II-XII intact - Respiratory Respiratory exam IM: Present: CTAB - GI/Abdominal GI/Abdominal exam IM: Present: normal bowel sounds, soft. Absent: tenderness - Extremities Extremities exam IM: Present: full ROM - Skin Skin exam IM: Present: dry, warm - Additional Information Additional Information: Decreased sensation to touch and vibration foot and ankle - Constitutional Vitals: Temp Pulse Resp BP Pulse Ox 98.2 F 69 12 106/74 97 06/09/18 00:25 06/09/18 00:25 06/09/18 00:25 06/09/18 00:25 06/08/18 23:33 General appearance: age & developmentally appropriate, well-groomed, well- nourished - Musculoskeletal Gait: normal Station: relaxed Strength & Tone: normal for patient - Psychiatric Patient Orientation: Yes Person, Yes Time, Yes Place Level of alertness: Alert Behavior: calm, cooperative, anxious Psychomotor activity: Normal Eye Contact: Maintains Eye Contact Mood Description: Depressed Affect description: congruent with mood, full range Speech Volume: Normal Speech pattern: normal rate, normal rhythm, normal tone, fluent, spontaneous Language & Vocabulary: consistent with education Thought Process: Linear, Goal Oriented Thought Content: No Suicidal ideation, No Homicidal ideation, No Overt delusions Perceptual Disturbances: No Auditory hallucinations, No Visual hallucinations Attention Span Ability: Capable of Focused Attention Memory Description: Grossly Intact Patient Reliability: Reliable Historian Fund of knowledge: Yes abstraction ability, Yes average, Yes aware of current events Intelligence Estimate: Above [place] Judgment: Good Insight: Full Results - Drug Levels and Toxicology Drug Levels and Toxicology: Drug Levels and Toxicity 06/08/18 06/08/18 18:42 18:55 Urine Opiates Screen Negative Acetaminophen < 10 L Ur Barbiturates Screen Negative Ur Phencyclidine Scrn Negative Ur Amphetamines Screen Negative U Benzodiazepines Scrn Positive H Urine Cocaine Screen Negative U Marijuana (THC) Screen Positive H Ethyl Alcohol < 10 - Labs Labs: Laboratory Last Values WBC 5.9 K/mcL (4.3-11.1) 06/08/18 18:42 RBC 4.03 M/mcL (4.19-5.50) L 06/08/18 18:42 Hgb 12.6 g/dL (12.9-16.9) L 06/08/18 18:42 Hct 37.2 % (37.5-50.1) L 06/08/18 18:42 MCV 92.3 fL (83.0-100.0) 06/08/18 18:42 MCH 31.3 pg (28.0-33.3) 06/08/18 18:42 MCHC 33.9 g/dL (31.6-35.5) 06/08/18 18:42 RDW 12.4 % (11.5-14.5) 06/08/18 18:42 Plt Count 194 K/mcL (140-400) 06/08/18 18:42 MPV 10.2 fL (9.4-12.4) 06/08/18 18:42 Immature Gran % 0.2 % (0-4) 06/08/18 18:42 Seg Neutrophils % 49.3 % 06/08/18 18:42 Lymphocytes % 40.0 % 06/08/18 18:42 Monocytes % 6.6 % 06/08/18 18:42 Eosinophils % 3.4 % 06/08/18 18:42 Basophils % 0.5 % 06/08/18 18:42 Neutrophils # 2.9 K/mcL (1.6-8.9) 06/08/18 18:42 Lymphocytes # 2.4 K/mcL (0.6-4.6) 06/08/18 18:42 Monocytes # 0.4 K/mcL (0.0-1.3) 06/08/18 18:42 Eosinophils # 0.2 K/mcL (0.0-0.6) 06/08/18 18:42 Basophils # 0.0 K/mcL (0.0-0.2) 06/08/18 18:42 Sodium 137 mEq/L (136-145) 06/08/18 18:42 Potassium 3.8 mEq/L (3.5-5.1) 06/08/18 18:42 Chloride 101 mEq/L (98-107) 06/08/18 18:42 Carbon Dioxide 28 mEq/L (23-29) 06/08/18 18:42 BUN 11 mg/dL (6-20) 06/08/18 18:42 Creatinine 0.65 mg/dL (0.70-1.30) L 06/08/18 18:42 Est GFR ( Amer) > 60 (> 60) 06/08/18 18:42 Est GFR (Non-Af Amer) > 60 (> 60) 06/08/18 18:42 BUN/Creatinine Ratio 17 (6-26) 06/08/18 18:42 Glucose 202 mg/dL (70-105) H 06/08/18 18:42 POC Glucose 362 mg/dL (70-99) H 06/09/18 08:10 Calculated Osmolality 289 (280-300) 06/08/18 18:42 Calcium 9.3 mg/dL (8.6-10.3) 06/08/18 18:42 Urine Color Yellow (Yellow) 06/08/18 18:54 Urine Clarity Clear (Clear) 06/08/18 18:54 Urine pH 7.0 pH Units (5.0-8.0) 06/08/18 18:54 Ur Specific [place] 1.027 (1.010-1.025) H 06/08/18 18:54 Urine Protein Trace mg/dL (Neg-Trace) 06/08/18 18:54 Urine Glucose (UA) Normal mg/dL (Normal) 06/08/18 18:54 Urine Ketones Negative mg/dL (Negative) 06/08/18 18:54 Urine Blood Negative (Negative) 06/08/18 18:54 Urine Nitrite Negative (Negative) 06/08/18 18:54 Urine Bilirubin Negative (Negative) 06/08/18 18:54 Urine Urobilinogen Normal mg/dL (Normal) 06/08/18 18:54 Ur Leukocyte Esterase Negative (Negative) 06/08/18 18:54 Urine Microscopic RBC 3-5 per hpf (0-3) H 06/08/18 18:54 Urine Microscopic WBC 0-3 per hpf (0-3) 06/08/18 18:54 Ur Squamous Epith Cells Moderate per lpf (None-Few) H 18 18:54 Urine Bacteria None Seen per hpf (None-Few) 06/08/18 18:54 Hyaline Casts None Seen per lpf (None-Few) 06/08/18 18:54 Salicylates < 2.5 mg/dL (15.0-30.0) L 06/08/18 18:42 Urine Opiates Screen Negative ng/mL (Iuhmni=657) 06/08/18 18:55 Acetaminophen < 10 mcg/mL (10-20) L 06/08/18 18:42 Ur Barbiturates Screen Negative ng/mL (Yyeqnk=086) 06/08/18 18:55 Ur Phencyclidine Scrn Negative ng/mL (Cutoff=25) 06/08/18 18:55 Ur Amphetamines Screen Negative ng/mL (Dsmojg=5970) 06/08/18 18:55 U Benzodiazepines Scrn Positive ng/mL (Jyrdnl=764) H 06/08/18 18:55 Urine Cocaine Screen Negative ng/mL (Cutoff= 300) 06/08/18 18:55 U Marijuana (THC) Screen Positive ng/mL (Cutoff = 50) H 06/08/18 18:55 Ur Drug Screen Interp See Below 06/08/18 18:55 Ethyl Alcohol < 10 mg/dL (Less than 10) 06/08/18 18:42 Diagnosis - Discharge Diagnosis (1) Major depressive disorder, single episode, severe without psychotic features Priority: Primary Status: Acute (2) Suicidal ideation Priority: Secondary Status: Resolved (3) Panic disorder without agoraphobia Priority: Secondary Status: Acute (4) Tobacco abuse Status: Acute Assessment and Plan - Patient/Caregiver Discharge Instructions Activity: resume usual activities as tolerated Diet: diabetic diet - Follow up Plan Follow up with: [facility] [Outside] - 06/23/18 2:45 pm (The above appointment is with Dr. Benton for outpatient psychiatric assessment and medication management services. You will also see Anabelle Castro for outpatient mental health counseling services on 07/22/2018 at 10:00am. Please arrive 10 minutes early to complete the check-in process. Please bring your insurance card (or HCAP award letter) and photo ID. If you are unable to keep this appointment, 24 hour business notice of cancellation is expected. If you miss your new patient appointment with any provider without providing appropriate notice, you cannot be re-scheduled for that service. The above appointment(s) reflects first availability. You may contact the office regularly to check for cancellations that may allow you to be seen sooner. The [facility] is the [address] [facility] in [place], [place]. Please do not use GPS or mapping apps to locate the office, as they will take you to the wrong location. ) Overall status at discharge: Stable Disposition: Home, Self-Care Provider Date of admission: 06/08/18 23:18 Primary care physician: PCP NONE Consults: 06/08/18 23:36 Consult to Hospitalist [CONS] Routine Consulting Provider: Hospitalist Matti Reason for Consult: Patient needs insulin recommendations. Time Notified: 23:37 Call Completed: Yes Hospital Course Hospital course: Mr. Iglesias is a 38 year old male - Time Spent with Patient Total time spent providing and/or coordinating discharge services: Quality - Multiple Antipsychotics Patient discharged on 2 or more antipsychotic medications: No
[2018-06-09] MEDS ORDERED: Insulin LISPRO 300 UNITS/3 ML VIAL SQ SCH (21:00)
== END 2018-06-09 13:20 | disposition home or self-care (01) ==
LOC: EMEROOARM 18:07 → 1ANU 18:07 → SUATTDRO 23:18 → 1ANU 23:45
PROVIDERS: ADMIT Psychiatry & Neurology Psychiatry; ATTEND Psychiatry & Neurology Forensic Psychiatry

== ENCOUNTER 2018-12-23 07:56 | Inpatient (IN) ==
[2018-12-23] MEDS ORDERED: *HR* Dextrose 50 % in Water (Syg) 50 ML SYRINGE IVP PRN ×2 (08:16→10:24)
--- NOTE | 2018-12-23 08:44 | Emergency Department Note ---
Disposition Clinical Impression: Dehydration, DKA (diabetic ketoacidoses), Suicidal ideation Disposition: Admitted As Inpatient Condition: Good Forms: ED Satisfaction Letter Time of Disposition: 10:37 General Adult HPI - General Chief complaint: ED Weakness Stated complaint: possible DKA Time Seen by Provider: 12/23/18 08:01 Source: family Limitations: altered mental status - History of Present Illness HPI Narrative: Patient is a 38-year-old gentleman presents to emergency department with chief complaint of DKA. Patient reports he has prior history of diabetes and has been having difficult time controlling his blood sugars. Patient states also he has been extremely depressed lately and has had thoughts of hurting himself. The patient reports that on Saturday he took an overdose of Klonopin trying to kill himself. The patient reports that he is still actively suicidal at this time but wants to get better from his diabetes. The patient reports symptoms feel similar to when he has had DKA before in the past. He reports that it is not worsened or improved by anything Pain Scale: 10 - Related Data Home Medications Medication Instructions Recorded Confirmed Insulin ASPART [NovoLOG] 0 unit SQ TID PRN 11/11/17 12/23/18 Gabapentin [Neurontin] 100 mg PO TID 12/12/17 12/23/18 Quetiapine Fumarate [Seroquel] 200 mg PO HS 12/23/18 12/23/18 clonazePAM [Klonopin] 0.5 mg PO DAILY 12/23/18 12/23/18 Allergies Allergy/AdvReac Type Severity Reaction Status Date / Time Penicillins [PCN] Allergy Rash Verified 12/23/18 09:59 morphine AdvReac Anaphylaxis Verified 12/23/18 09:59 All systems ED: reviewed and negative except as stated. Past Medical History - Past Medical History Attestation: Yes The following information was validated with the patient. Medical history: Reports: diabetes Surgical history: Reports: no surgical history, non-contributory Psychiatric history: Reports: anxiety, depression, panic disorder - Social History Smoking Status: Current every day smoker Smokeless Tobacco Status: No Alcohol use: Reports: none Drug use: Reports: marijuana Physical Exam General: Conversant and pleasant interactive and nontoxic. Head: Normocephalic/atraumatic Eyes:PERRLA, EOMI, no conjunctivitis Nares: Without d/c. Ears: No erythema or d/c noted. Oralpharnyx: Dry mucous membranes, Neck: Supple, no JVD or KNITTER HELPER noted. Cardovascular: Tachycardic rate and rhythm without murmur, brisk capillary refill, no peripheral edema. Lungs: Clear to ascultation bilaterally, non-labored Abd: Soft mild tenderness to palpation, Non Distended, no guarding, no rebound. : Defered Extremities: moves all extremities equally Neuro: AOx3, no obvious gross neuro deficit Psych: Depressed affect expressing suicidal ideation Derm: No rash noted - General Limitations: altered mental status General appearance: alert Course Vital Signs Temperature 97.6 F 12/23/18 07:59 Pulse Rate 127 12/23/18 07:59 Respiratory Rate 18 12/23/18 07:59 Blood Pressure 111/71 12/23/18 07:59 O2 Sat by Pulse Oximetry 99 12/23/18 07:59 Temperature 97.6 F 12/23/18 08:04 Pulse Rate 123 12/23/18 09:05 Respiratory Rate 16 12/23/18 09:05 Blood Pressure 118/74 12/23/18 09:05 O2 Sat by Pulse Oximetry 100 12/23/18 09:05 Oxygen Delivery Oxygen Delivery Room Air Medical Decision Making - Lab Data Result diagrams: 12/23/18 08:42 12/23/18 08:42 Lab Results 12/23/18 12/23/18 12/23/18 Range/Units 08:42 08:42 08:42 WBC 13.1 H (4.3-11.1) K/mcL RBC 4.63 (4.19-5.50) M/mcL Hgb 14.7 (12.9-16.9) g/dL Hct 45.6 (37.5-50.1) % MCV 98.5 (83.0-100.0) fL MCH 31.7 (28.0-33.3) pg MCHC 32.2 (31.6-35.5) g/dL RDW 12.4 (11.5-14.5) % Plt Count 238 (140-400) K/mcL MPV 10.2 (9.4-12.4) fL Immature Gran % 0.8 (0-4) % Seg Neutrophils % 84.6 % Lymphocytes % 10.9 % Monocytes % 3.0 % Eosinophils % 0.3 % Basophils % 0.4 % Neutrophils # 11.1 H (1.6-8.9) K/mcL Lymphocytes # 1.4 (0.6-4.6) K/mcL Monocytes # 0.4 (0.0-1.3) K/mcL Eosinophils # 0.0 (0.0-0.6) K/mcL Basophils # 0.1 (0.0-0.2) K/mcL VBG pH (7.32-7.42) pH Units VBG pCO2 (41-51) mmHg VBG pO2 (25-50) mmHg VBG HCO3 (21-27) mEq/L Sodium 130 L (136-145) mEq/L Potassium 5.0 (3.5-5.1) mEq/L Chloride 82 L (98-107) mEq/L Carbon Dioxide 11 L (23-29) mEq/L BUN 22 H (6-20) mg/dL Creatinine 1.10 (0.70-1.30) mg/dL Est GFR ( Amer) > 60 (> 60) Est GFR (Non-Af Amer) > 60 (> 60) BUN/Creatinine Ratio 20 (6-26) Glucose 813 H* (70-105) mg/dL Est Mean Plasma Glucose 255 mg/dl Hemoglobin A1c 10.5 H ( - 5.6) % Serum Osmolality (280-300) mOsm/kg Calculated Osmolality 313 H (280-300) Lactic Acid (0.5-2.2) mmol/L Calcium 9.7 (8.6-10.3) mg/dL Magnesium 2.0 (1.6-2.6) mg/dL Total Bilirubin 0.8 (0.3-1.0) mg/dL AST 39 (13-39) Units/L ALT 41 (7-52) Units/L Alkaline Phosphatase 97 (34-104) Units/L Troponin I < 0.03 (< 0.04) ng/mL Serum Total Protein 8.2 (6.4-8.9) g/dL Albumin 4.6 (3.5-5.7) g/dL Globulin 3.6 H (2.4-3.5) g/dL Albumin/Globulin Ratio 1.3 (1.1-2.2) Beta-Hydroxybutyric Acd (0.02-0.27) mmol/L Urine Color (Yellow) Urine Clarity (Clear) Urine pH (5.0-8.0) pH Units Ur Specific [place] (1.010-1.025) Urine Protein (Neg-Trace) mg/dL Urine Glucose (UA) (Normal) mg/dL Urine Ketones (Negative) mg/dL Urine Blood (Negative) Urine Nitrite (Negative) Urine Bilirubin (Negative) Urine Urobilinogen (Normal) mg/dL Ur Leukocyte Esterase (Negative) Ur Culture Indicated? (NO) Salicylates < 2.5 L (15.0-30.0) mg/dL Urine Opiates Screen (Bzshcb=890) ng/mL Acetaminophen < 10 L (10-20) mcg/mL Ur Barbiturates Screen (Tkkowk=285) ng/mL Ur Phencyclidine Scrn (Cutoff=25) ng/mL Ur Amphetamines Screen (Fzluem=5772) ng/mL U Benzodiazepines Scrn (Mppskr=304) ng/mL Urine Cocaine Screen (Cutoff= 300) ng/mL U Marijuana (THC) Screen (Cutoff = 50) ng/mL Ur Drug Screen Interp Ethyl Alcohol < 10 (Less than 10) mg/dL 12/23/18 12/23/18 12/23/18 Range/Units 08:42 08:42 08:42 WBC (4.3-11.1) K/mcL RBC (4.19-5.50) M/mcL Hgb (12.9-16.9) g/dL Hct (37.5-50.1) % MCV (83.0-100.0) fL MCH (28.0-33.3) pg MCHC (31.6-35.5) g/dL RDW (11.5-14.5) % Plt Count (140-400) K/mcL MPV (9.4-12.4) fL Immature Gran % (0-4) % Seg Neutrophils % % Lymphocytes % % Monocytes % % Eosinophils % % Basophils % % Neutrophils # (1.6-8.9) K/mcL Lymphocytes # (0.6-4.6) K/mcL Monocytes # (0.0-1.3) K/mcL Eosinophils # (0.0-0.6) K/mcL Basophils # (0.0-0.2) K/mcL VBG pH (7.32-7.42) pH Units VBG pCO2 (41-51) mmHg VBG pO2 (25-50) mmHg VBG HCO3 (21-27) mEq/L Sodium (136-145) mEq/L Potassium (3.5-5.1) mEq/L Chloride (98-107) mEq/L Carbon Dioxide (23-29) mEq/L BUN (6-20) mg/dL Creatinine (0.70-1.30) mg/dL Est GFR ( Amer) (> 60) Est GFR (Non-Af Amer) (> 60) BUN/Creatinine Ratio (6-26) Glucose (70-105) mg/dL Est Mean Plasma Glucose mg/dl Hemoglobin A1c ( - 5.6) % Serum Osmolality 333 H (280-300) mOsm/kg Calculated Osmolality (280-300) Lactic Acid 3.4 H (0.5-2.2) mmol/L Calcium (8.6-10.3) mg/dL Magnesium (1.6-2.6) mg/dL Total Bilirubin (0.3-1.0) mg/dL AST (13-39) Units/L ALT (7-52) Units/L Alkaline Phosphatase (34-104) Units/L Troponin I (< 0.04) ng/mL Serum Total Protein (6.4-8.9) g/dL Albumin (3.5-5.7) g/dL Globulin (2.4-3.5) g/dL Albumin/Globulin Ratio (1.1-2.2) Beta-Hydroxybutyric Acd > 2.00 H (0.02-0.27) mmol/L Urine Color (Yellow) Urine Clarity (Clear) Urine pH (5.0-8.0) pH Units Ur Specific [place] (1.010-1.025) Urine Protein (Neg-Trace) mg/dL Urine Glucose (UA) (Normal) mg/dL Urine Ketones (Negative) mg/dL Urine Blood (Negative) Urine Nitrite (Negative) Urine Bilirubin (Negative) Urine Urobilinogen (Normal) mg/dL Ur Leukocyte Esterase (Negative) Ur Culture Indicated? (NO) Salicylates (15.0-30.0) mg/dL Urine Opiates Screen (Jkafse=474) ng/mL Acetaminophen (10-20) mcg/mL Ur Barbiturates Screen (Lwwupd=888) ng/mL Ur Phencyclidine Scrn (Cutoff=25) ng/mL Ur Amphetamines Screen (Eoroco=1535) ng/mL U Benzodiazepines Scrn (Cikwtf=900) ng/mL Urine Cocaine Screen (Cutoff= 300) ng/mL U Marijuana (THC) Screen (Cutoff = 50) ng/mL Ur Drug Screen Interp Ethyl Alcohol (Less than 10) mg/dL 12/23/18 12/23/18 12/23/18 Range/Units 09:01 09:05 09:07 WBC (4.3-11.1) K/mcL RBC (4.19-5.50) M/mcL Hgb (12.9-16.9) g/dL Hct (37.5-50.1) % MCV (83.0-100.0) fL MCH (28.0-33.3) pg MCHC (31.6-35.5) g/dL RDW (11.5-14.5) % Plt Count (140-400) K/mcL MPV (9.4-12.4) fL Immature Gran % (0-4) % Seg Neutrophils % % Lymphocytes % % Monocytes % % Eosinophils % % Basophils % % Neutrophils # (1.6-8.9) K/mcL Lymphocytes # (0.6-4.6) K/mcL Monocytes # (0.0-1.3) K/mcL Eosinophils # (0.0-0.6) K/mcL Basophils # (0.0-0.2) K/mcL VBG pH 7.27 L (7.32-7.42) pH Units VBG pCO2 28 L (41-51) mmHg VBG pO2 139 H (25-50) mmHg VBG HCO3 13 L (21-27) mEq/L Sodium (136-145) mEq/L Potassium (3.5-5.1) mEq/L Chloride (98-107) mEq/L Carbon Dioxide (23-29) mEq/L BUN (6-20) mg/dL Creatinine (0.70-1.30) mg/dL Est GFR ( Amer) (> 60) Est GFR (Non-Af Amer) (> 60) BUN/Creatinine Ratio (6-26) Glucose (70-105) mg/dL Est Mean Plasma Glucose mg/dl Hemoglobin A1c ( - 5.6) % Serum Osmolality (280-300) mOsm/kg Calculated Osmolality (280-300) Lactic Acid (0.5-2.2) mmol/L Calcium (8.6-10.3) mg/dL Magnesium (1.6-2.6) mg/dL Total Bilirubin (0.3-1.0) mg/dL AST (13-39) Units/L ALT (7-52) Units/L Alkaline Phosphatase (34-104) Units/L Troponin I (< 0.04) ng/mL Serum Total Protein (6.4-8.9) g/dL Albumin (3.5-5.7) g/dL Globulin (2.4-3.5) g/dL Albumin/Globulin Ratio (1.1-2.2) Beta-Hydroxybutyric Acd (0.02-0.27) mmol/L Urine Color Yellow (Yellow) Urine Clarity Clear (Clear) Urine pH 5.0 (5.0-8.0) pH Units Ur Specific [place] > 1.030 H (1.010-1.025) Urine Protein Negative (Neg-Trace) mg/dL Urine Glucose (UA) >=1000 H (Normal) mg/dL Urine Ketones >=160 H (Negative) mg/dL Urine Blood Negative (Negative) Urine Nitrite Negative (Negative) Urine Bilirubin Negative (Negative) Urine Urobilinogen Normal (Normal) mg/dL Ur Leukocyte Esterase Negative (Negative) Ur Culture Indicated? NO (NO) Salicylates (15.0-30.0) mg/dL Urine Opiates Screen Negative (Cxtimk=884) ng/mL Acetaminophen (10-20) mcg/mL Ur Barbiturates Screen Negative (Wrhkrq=452) ng/mL Ur Phencyclidine Scrn Negative (Cutoff=25) ng/mL Ur Amphetamines Screen Negative (Sjmkao=8419) ng/mL U Benzodiazepines Scrn Negative (Rwdqzi=464) ng/mL Urine Cocaine Screen Negative (Cutoff= 300) ng/mL U Marijuana (THC) Screen Negative (Cutoff = 50) ng/mL Ur Drug Screen Interp See Below Ethyl Alcohol (Less than 10) mg/dL Critical Care Time Critical Care Time: Yes Total Critical Care Time: 30 Attestation: Critical care performed: Time is exclusive of separately billable procedures. Time includes: direct patient care, patient reassessment, coordination of patient care, interpretation of data (laboratory data, radiology data, and respiratory data), review of patient's medical records, medical consultation and documentation of patient care.
[2018-12-23 08:58] LABS: Basophils # 0.1 K/mcL (0.0-0.2); Basophils % 0.4 %; Eosinophils % 0.3 %; Hematocrit 45.6 % (37.5-50.1); Hemoglobin 14.7 g/dL (12.9-16.9); Immature Granulocytes % 0.8 % (0-4); Lymphocytes # 1.4 K/mcL (0.6-4.6); Lymphocytes % 10.9 %; Mean Corpuscular HGB Conc 32.2 g/dL (31.6-35.5); Mean Corpuscular Hemoglobin 31.7 pg (28.0-33.3); Mean Corpuscular Volume 98.5 fL (83.0-100.0); Mean Platelet Volume 10.2 fL (9.4-12.4); Monocytes # 0.4 K/mcL (0.0-1.3); Neutrophils # 11.1 K/mcL (1.6-8.9); Platelet Count 238 K/mcL (140-400); Red Blood Count 4.63 M/mcL (4.19-5.50); Red Cell Distribution Width 12.4 % (11.5-14.5); Segmented Neutrophils % 84.6 %
[2018-12-23] MEDS: 0.9 % Sodium Chloride 1,000 ML IVC SCH ×2 (09:02→10:37)
[2018-12-23 09:04] LABS: VBG HCO3 13 mEq/L (21-27); VBG PCO2 28 mmHg (41-51); VBG PH 7.27 pH Units (7.32-7.42); VBG PO2 139 mmHg (25-50)
[2018-12-23] MEDS ORDERED: Insulin Human Regular 100 UNIT in 0.9 % Sodium Chloride 100 ML IVC SCH (09:15)
[2018-12-23 09:27] LABS: Amphetamine Screen,Urine Negative ng/mL (Cutoff=1000); Barbiturate Screen,Urine Negative ng/mL (Cutoff=200); Benzodiazepines Screen,Urine Negative ng/mL (Cutoff=200); Cannabinoid Screen,Urine Negative ng/mL (Cutoff = 50); Cocaine Screen,Urine Negative ng/mL (Cutoff= 300); Opiate Screen,Urine Negative ng/mL (Cutoff=300); Phencyclidine Screen,Urine Negative ng/mL (Cutoff=25)
[2018-12-23 09:40] LABS: Acetaminophen < 10 mcg/mL (10-20); Alanine Aminotransferase 41 Units/L (7-52); Albumin 4.6 g/dL (3.5-5.7); Albumin/Globulin Ratio 1.3 (1.1-2.2); Alkaline Phosphatase 97 Units/L (34-104); Aspartate Amino Transferase 39 Units/L (13-39); BUN/Creatinine Ratio 20 (6-26); Bilirubin,Total 0.8 mg/dL (0.3-1.0); Blood Urea Nitrogen 22 mg/dL (6-20); Calcium 9.7 mg/dL (8.6-10.3); Carbon Dioxide 11 mEq/L (23-29); Chloride 82 mEq/L (98-107); Ethanol < 10 mg/dL (Less than 10); Globulin 3.6 g/dL (2.4-3.5); Glucose 813 mg/dL (70-105); Osmolality,Calculated 313 (280-300); Salicylate < 2.5 mg/dL (15.0-30.0); Sodium 130 mEq/L (136-145); Total Protein 8.2 g/dL (6.4-8.9); Troponin I < 0.03 ng/mL (< 0.04); eGFR For Non-African Americans > 60 (> 60)
[2018-12-23 09:51] LABS: Bilirubin,Urine Negative (Negative); Blood,Urine Negative (Negative); Clarity,Urine Clear (Clear); Color,Urine Yellow (Yellow); Glucose,Urine (UA) >=1000 mg/dL (Normal); Ketones,Urine >=160 mg/dL (Negative); Leukocyte Esterase,Urine Negative (Negative); Nitrite,Urine Negative (Negative); Protein,Urine Negative (Neg-Trace); Specific Gravity,Urine > 1.030 (1.010-1.025); Urobilinogen,Urine Normal (Normal)
[2018-12-23] MEDS ORDERED: Naloxone 0.4 MG/ML INJ IVP PRN (10:24)
[2018-12-23] MEDS ORDERED: D5% in 0.45% NACL 1,000 ML IVC PRN (10:24)
[2018-12-23 10:32] LABS: Estimated Average Glucose 255 mg/dl; Hemoglobin A1C 10.5 %
--- NOTE | 2018-12-23 10:35 | Internal Med History&Physical ---
Date of Encounter: 12/23/18 Time of Encounter: 10:00 Internal Medicine - H&P: HPI Chief complaint: uncontrolled glucose Admitted From: Home Plans for Post Hospital Care: Home History of present illness: Mr. Iglesias is a 38 year old male with IDDM diagnosed with type 1 diabetes 9 years ago as per mother and psych disorder presented to the ED with generalized Weakness. As per patient he has been feeling weak for the past week which is gradually worsening. He reports that he typically feels this way when his blood glucose is high. As per mom at bedside this is his fifth DKA in the past year. As per patient he was placed on an insulin pump before however it was not working so he was placed on NovoLog 10 units and was supposed to count his carbs. He reports compliance with medication and has been having difficult time controlling his blood sugars for the past few weeks. as per his mother at bedside he waits until the last minute to seek medical attention. he reports that he tried to commit suicide by ingesting 60 klonipin pills on saturday (4 days prior to admission) when asked his mother as to why she did not bring him to the hospital she reports that he refused and since he as still concious and conver sing she did not think that it was an OD. he denies fever, chills, diarrhea, abdominal pain, chest pain, palpitations, cough, URTI, calf tenderness. however he reports SOB, epigastric abdominal pain. The patient reports symptoms feel similar to when he has had DKA before in the past. he does report nausea and vomiting, denies blood and his epigastric pain is more of a soreness adn not pain from repeatedly retching. while in the ED he was found to have glucose >800 and DKA he was started on insulin Drip. he also had SI. The patient reports that on Saturday he took an overdose of Klonopin trying to kill himself. I suggested poison control to be called however ED physician reported that it was not necessary as it was >5 days ago. he was not pink slipped by the ED physician and was placed on medical hold instead. Past Med Surg Social Fam HX - Past Medical History Medical history: diabetes Additional medical history: Type 1 Psychiatric history: anxiety, depression, panic disorder - Past Surgical History Surgical History: no surgical history, non-contributory Additional surgical history: Surgery to back in 2007 and October 2017 had surgery to foot due to diabetic foot ulcer, currently healed. - Social History Smoking Status: Current every day smoker Smokeless Tobacco Status: No Alcohol use: none Drug use: marijuana - Family History Mother Living Status: Still Living Hx Family Cardiac Disorders: Yes (HTN) Hx Family Respiratory Disorders: No Hx Family Cancer: No Hx Family GI Disorders: No Hx Family Endocrine Disorder: No Hx Family Neuromuscular Disorders: No Hx Family Neurologic Disorders: No Hx Family HEENT Disorders: No Hx Family Autoimmune Disorders: No Father Living Status: Hx Family Endocrine Disorder: Yes (Diabeties) Internal Medicine - H&P: Meds Insulin ASPART [NovoLOG] 0 unit SQ TID PRN 11/11/17 [History] Gabapentin [Neurontin] 100 mg PO TID 12/12/17 [History] Quetiapine Fumarate [Seroquel] 200 mg PO HS 12/23/18 [History] clonazePAM [Klonopin] 0.5 mg PO DAILY 12/23/18 [History] Allergy/AdvReac Type Severity Reaction Status Date / Time Penicillins [PCN] Allergy Rash Verified 12/23/18 09:59 morphine AdvReac Anaphylaxis Verified 12/23/18 09:59 All Systems PM: A 10-system review of systems was performed and is negative for pertinent findings except as documented above in the HPI. - Constitutional Vitals: Temp Pulse Resp BP Pulse Ox 97.6 F 123 16 118/74 100 12/23/18 08:04 12/23/18 09:05 12/23/18 09:05 12/23/18 09:05 12/23/18 09:05 Exam: General: Patient is alert, oriented, no acute distress, thin Head: atraumatic, normocephalic, Eye: normal appearance, PERRL, no scleral icterus, no conjunctival injection ENT: mucous membranes moist, normal external ear exam Neck: normal inspection, trachea midline, full ROM, no carotid bruits Chest: normal inspection, symmetric chest rise Respiratory: Good respiratory effort. Bilateral breath sounds are clear without wheezing, crackles, or rhonchi. Cardiovascular: Tachycardic s1 and s2 No clicks, rubs, gallops, or murmors. Abdomen: Bowel sounds present normoactive x-4 quadrants. Abdomen is soft, nondistended. no Epigastric tenderness. No guarding or rebound. No organomegaly noted musculoskeletal: Spontaneously moving all extremities. no edema, no calf tenderness Skin: warm, dry, intact. No ulcers of bilateral feet, poor hygiene toenails Neuro: Alert and oriented x4. No focal deficit Psych: Patient's affect is flat, denies SI or HI Internal Med - H&P Results - Labs CBC & Chem 7: 12/23/18 08:42 12/23/18 08:42 Labs: Short CBC 12/23/18 Range/Units 08:42 WBC 13.1 H (4.3-11.1) K/mcL Hgb 14.7 (12.9-16.9) g/dL Hct 45.6 (37.5-50.1) % Plt Count 238 (140-400) K/mcL Neutrophils # 11.1 H (1.6-8.9) K/mcL BMP 12/23/18 08:42 Sodium 130 L Potassium 5.0 Chloride 82 L Carbon Dioxide 11 L BUN 22 H Creatinine 1.10 Glucose 813 H* Calcium 9.7 Cardiac Enzymes 12/23/18 Range/Units 08:42 Troponin I < 0.03 (< 0.04) ng/mL Liver Function 12/23/18 Range/Units 08:42 Total Bilirubin 0.8 (0.3-1.0) mg/dL AST 39 (13-39) Units/L ALT 41 (7-52) Units/L Alkaline Phosphatase 97 (34-104) Units/L Albumin 4.6 (3.5-5.7) g/dL Urine 12/23/18 Range/Units 09:07 Urine Color Yellow (Yellow) Urine Clarity Clear (Clear) Urine pH 5.0 (5.0-8.0) pH Units Ur Specific [place] > 1.030 H (1.010-1.025) Urine Protein Negative (Neg-Trace) mg/dL Urine Glucose (UA) >=1000 H (Normal) mg/dL - ABG Interpretation ABG results: 12/23/18 09:01 VBG pH 7.27 L VBG pCO2 28 L VBG pO2 139 H VBG HCO3 13 L - EKG Data -: EKG Interpreted by Myself EKG shows normal: sinus rhythm (sinus tachycardia, [id number] ) - EKG Data Prior EKG available for review: yes When compared to previous EKG: there is no significant change - Assessment and Plan (1) DKA (diabetic ketoacidoses) Current Visit: Yes Status: Acute Assessment and plan: DKA protocol initiated admit to the ICU glucose 813, PH 7.27 Check ketone BMP/VBG q4h [place] Q1H, call MD if FS less than 250, can start D5 1/2 NS Start Insulin drip stat at 0.1 unit/kg/hr then taper accordingly IVF NS 2000 bolus given in the ED, will give another bolus supplement potassium to IVF if potassium <5.2 Zofran for N and vomiting prn EKG A1c thiamine, folic acid Amylase, lipase protonix IV Vitals as nursing protocol Standard precaution Diet NPO x now DVT prophylaxis heparin subcutaneous Qualifiers: Diabetes mellitus type: type 1 Diabetes mellitus complication detail: without coma Qualified Code(s): E10.10 - Type 1 diabetes mellitus with ketoacidosis without coma (2) Leukocytosis Current Visit: Yes Status: Acute Assessment and plan: most likely secondary dehdyration / DKA continue with IVF as above UA- negative CXR- NAD Afebrile currently- will hold off of Abx for now Qualifiers: Leukocytosis type: unspecified Qualified Code(s): D72.829 - Elevated white blood cell count, unspecified (3) Dehydration Current Visit: Yes Status: Acute Assessment and plan: secondary to DKA continue with IVF as above (4) Suicidal ideation Current Visit: Yes Status: Acute Assessment and plan: was palced on Med hold by the ED physician Patient states also he has been extremely depressed lately and has had thoughts of hurting himself. took an overdose of Klonopin trying to kill himself 5 days prior to admission sitter for one to one observation psych consulted neurochecks fall, aspiration, seizure precautions (5) DVT prophylaxis Current Visit: No Status: Acute Assessment and plan: heparin sc - Time Spent With Patient Total time spent is greater than 50% in coordination of care (as documented) at patient's floor/unit and/or counseling patient:
[2018-12-23] MEDS ORDERED: 0.9 % Sodium Chloride 1,000 ML IVC ONE (11:21)
[2018-12-23 12:31] LABS: VBG HCO3 12 mEq/L (21-27); VBG PCO2 22 mmHg (41-51); VBG PH 7.33 pH Units (7.32-7.42); VBG PO2 104 mmHg (25-50)
[2018-12-23] MEDS: Ondansetron 4 MG/2 ML VIAL IVP PRN (12:32)
[2018-12-23 13:07] LABS: Amylase 69 Units/L (29-103); BUN/Creatinine Ratio 20 (6-26); Blood Urea Nitrogen 23 mg/dL (6-20); Calcium 9.7 mg/dL (8.6-10.3); Carbon Dioxide 13 mEq/L (23-29); Chloride 93 mEq/L (98-107); Chol/HDL Ratio 3.7 (0-4.9); Cholesterol 206 mg/dL (< 200); Glucose 526 mg/dL (70-105); HDL Cholesterol 56 mg/dL (40-59); LDL Cholesterol,Calculated 111 mg/dL (0-99); Lipase 3 Units/L (11-82); Magnesium 2.1 mg/dL (1.6-2.6); Osmolality,Calculated 309 (280-300); Phosphorous 3.4 mg/dL (2.7-4.5); Potassium 4.4 mEq/L (3.5-5.1); Sodium 136 mEq/L (136-145); Triglycerides 194 mg/dL (< 150); eGFR For Non-African Americans > 60 (> 60)
--- NOTE | 2018-12-23 15:00 | Electrocardiograph Report ---
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
[2018-12-23] MEDS: D5% in 0.45% NACL w KCl 20 MEQ/1,000 ML MLS IVC PRN ×2 (16:15→20:17)
[2018-12-23] MEDS: Gabapentin 100 MG CAPSULE PO SCH ×2 (16:50→20:21)
[2018-12-23] MEDS: Thiamine (B-1) 100 MG TABLET PO SCH (16:50)
[2018-12-23] MEDS: Folic Acid 1 MG TABLET PO SCH (16:50)
[2018-12-23 16:59] LABS: VBG HCO3 22 mEq/L (21-27); VBG PCO2 34 mmHg (41-51); VBG PH 7.43 pH Units (7.32-7.42); VBG PO2 129 mmHg (25-50)
[2018-12-23 17:03] LABS: BUN/Creatinine Ratio 21 (6-26); Blood Urea Nitrogen 21 mg/dL (6-20); Calcium 9.7 mg/dL (8.6-10.3); Carbon Dioxide 20 mEq/L (23-29); Chloride 89 mEq/L (98-107); Glucose 211 mg/dL (70-105); Magnesium 2.2 mg/dL (1.6-2.6); Osmolality,Calculated 269 (280-300); Phosphorous 1.9 mg/dL (2.7-4.5); Potassium 4.2 mEq/L (3.5-5.1); Sodium 125 mEq/L (136-145); eGFR For Non-African Americans > 60 (> 60)
[2018-12-23] MEDS: 0.9 % Sodium Chloride w KCl 20 MEQ/1,000 ML MLS IVC SCH ×4 (17:56→22:40)
[2018-12-23] MEDS: *HR* Heparin 5,000 UNIT/ML VIAL SQ SCH ×3 (18:14→20:21)
[2018-12-23] MEDS: Pantoprazole 40 MG VIAL IVP SCH ×2 (18:16)
[2018-12-23] MEDS: Insulin Human Regular 100 UNIT in 0.9 % Sodium Chloride 100 ML IVC SCH ×2 (18:23→21:15)
[2018-12-23] MEDS ORDERED: Insulin Regular, Human 100 UNIT/ML IV PRN (19:10)
[2018-12-23] MEDS: D5% in 0.9% NACL w KCl 20 MEQ/1,000 ML MLS IVC SCH (20:22)
[2018-12-23 20:26] LABS: VBG HCO3 26 mEq/L (21-27); VBG PCO2 34 mmHg (41-51); VBG PH 7.49 pH Units (7.32-7.42); VBG PO2 161 mmHg (25-50)
[2018-12-23 20:47] LABS: BUN/Creatinine Ratio 19 (6-26); Blood Urea Nitrogen 17 mg/dL (6-20); Calcium 8.9 mg/dL (8.6-10.3); Carbon Dioxide 24 mEq/L (23-29); Chloride 103 mEq/L (98-107); Glucose 164 mg/dL (70-105); Magnesium 1.9 mg/dL (1.6-2.6); Osmolality,Calculated 299 (280-300); Potassium 3.9 mEq/L (3.5-5.1); Sodium 142 mEq/L (136-145); eGFR For Non-African Americans > 60 (> 60)
[2018-12-23] MEDS ORDERED: Potassium Phosphate 44 MEQ in 0.9 % Sodium Chloride 250 ML IVPB ONE (21:52)
[2018-12-23] MEDS ORDERED: *HR* Metoprolol 5 MG/5 ML VIAL IVP PRN (21:53)
[2018-12-24] MEDS: D5% in 0.9% NACL w KCl 20 MEQ/1,000 ML MLS IVC SCH (00:08)
[2018-12-24] MEDS: 0.9 % Sodium Chloride w KCl 20 MEQ/1,000 ML MLS IVC SCH ×4 (00:08→19:22)
[2018-12-24] MEDS: D5% in 0.45% NACL w KCl 20 MEQ/1,000 ML MLS IVC PRN (00:15)
[2018-12-24 00:46] LABS: VBG HCO3 28 mEq/L (21-27); VBG PCO2 47 mmHg (41-51); VBG PH 7.39 pH Units (7.32-7.42); VBG PO2 61 mmHg (25-50)
[2018-12-24 01:02] LABS: BUN/Creatinine Ratio 20 (6-26); Blood Urea Nitrogen 16 mg/dL (6-20); Calcium 8.8 mg/dL (8.6-10.3); Carbon Dioxide 28 mEq/L (23-29); Chloride 106 mEq/L (98-107); Glucose 90 mg/dL (70-105); Magnesium 1.9 mg/dL (1.6-2.6); Osmolality,Calculated 293 (280-300); Phosphorous 1.5 mg/dL (2.7-4.5); Potassium 3.3 mEq/L (3.5-5.1); Sodium 141 mEq/L (136-145); eGFR For Non-African Americans > 60 (> 60)
[2018-12-24] MEDS ORDERED: Insulin DETEMIR 100 UNIT/ML X5UNITS SQ ONE (01:43)
[2018-12-24] MEDS: Insulin LISPRO 300 UNITS/3 ML VIAL SQ SCH ×6 (01:56→17:21)
[2018-12-24 04:38] LABS: Hematocrit 36.8 % (37.5-50.1); Hemoglobin 12.5 g/dL (12.9-16.9); Mean Corpuscular Hemoglobin 31.7 pg (28.0-33.3); Mean Corpuscular Volume 93.4 fL (83.0-100.0); Mean Platelet Volume 9.7 fL (9.4-12.4); Platelet Count 170 K/mcL (140-400); Red Blood Count 3.94 M/mcL (4.19-5.50); Red Cell Distribution Width 12.4 % (11.5-14.5)
[2018-12-24 04:39] LABS: VBG HCO3 21 mEq/L (21-27); VBG PCO2 33 mmHg (41-51); VBG PH 7.42 pH Units (7.32-7.42); VBG PO2 142 mmHg (25-50)
[2018-12-24 04:51] LABS: BUN/Creatinine Ratio 21 (6-26); Blood Urea Nitrogen 15 mg/dL (6-20); Calcium 8.1 mg/dL (8.6-10.3); Carbon Dioxide 21 mEq/L (23-29); Chloride 103 mEq/L (98-107); Glucose 246 mg/dL (70-105); Magnesium 1.9 mg/dL (1.6-2.6); Osmolality,Calculated 291 (280-300); Phosphorous 2.5 mg/dL (2.7-4.5); Potassium 4.1 mEq/L (3.5-5.1); Sodium 136 mEq/L (136-145); eGFR For Non-African Americans > 60 (> 60)
[2018-12-24] MEDS: Ondansetron 4 MG/2 ML VIAL IVP PRN ×3 (05:33→21:48)
[2018-12-24] MEDS: *HR* Heparin 5,000 UNIT/ML VIAL SQ SCH ×3 (07:00→21:53)
[2018-12-24] MEDS: Thiamine (B-1) 100 MG TABLET PO SCH (08:33)
[2018-12-24] MEDS: Gabapentin 100 MG CAPSULE PO SCH ×3 (08:33→22:18)
[2018-12-24] MEDS: Folic Acid 1 MG TABLET PO SCH (08:33)
[2018-12-24] MEDS: Pantoprazole 40 MG VIAL IVP SCH (08:33)
[2018-12-24] MEDS: clonazePAM 1 MG TABLET PO SCH ×3 (08:36→15:45)
[2018-12-24 08:45] LABS: VBG HCO3 19 mEq/L (21-27); VBG PCO2 24 mmHg (41-51); VBG PH 7.51 pH Units (7.32-7.42); VBG PO2 223 mmHg (25-50)
[2018-12-24 08:52] LABS: BUN/Creatinine Ratio 21 (6-26); Blood Urea Nitrogen 15 mg/dL (6-20); Calcium 8.7 mg/dL (8.6-10.3); Carbon Dioxide 21 mEq/L (23-29); Chloride 98 mEq/L (98-107); Glucose 325 mg/dL (70-105); Osmolality,Calculated 293 (280-300); Potassium 4.1 mEq/L (3.5-5.1); Sodium 135 mEq/L (136-145); eGFR For Non-African Americans > 60 (> 60)
[2018-12-24] MEDS ORDERED: D5% in Water 1,000 ML IVC PRN ×2 (08:57→21:47)
[2018-12-24] MEDS ORDERED: Dextrose Gel 15 GM/37.5 ML TUBE PO PRN ×4 (08:57→21:47)
--- NOTE | 2018-12-24 13:18 | Consult Note ---
Date of Encounter: 12/24/18 Time of Encounter: 13:10 Assessment & Recommendation (1) Major depression Current visit: Yes Status: Acute Assessment & Recommendation: Client is denying any further SI, intent, or plan. Does not meet inpatient criteria at this time. However, given seriousness of his actions would want to reassess him prior to discharge. Client lives with parents so would also want to get their comfort level regarding client's safety. Attempted to call them this afternoon but no answer. Client said they would be visiting him in the hospital today. This principal technical writer stopped by his room twice but no family present either time. Client is already linked with outpatient services. Takes mental health medications but Seroquel has a tendency to raise blood sugars and may be impacting his Diabetes. Client states he takes it to help him sleep. May want to look at alternative sleep aides like Trazodone or Ambien which should not impact his glucose levels as much. Client also reports he takes Paxil but this medication not listed on his home meds. He is not otherwise on an antidepressant so would restart this med if possible. Will follow along. Qualifiers: Major depression recurrence: recurrent Active/Remission status: currently active Major depression episode severity: severe Psychotic features: without psychotic features Qualified Code(s): F33.2 - Major depressive disorder, recurrent severe without psychotic features History of Present Illness Requesting Physician: Cortez Anderson DO Reason for consult: overdose History of present illness: Mr. Iglesias is a 38 year old male with uncontrolled diabetes who was admitted in [facility]. Informed treatment providers he attempted suicide via overdosing on his Klonopin on Saturday. No longer endorsing SI, intent, or plan but still depressed over his physical health. Did not seek any treatment for overdose but he did tell his family what he had done. On eval today client states he is no longer suicidal but that he is depressed due to his poor health. Diagnosed with Diabetes ten years ago and has been hospitalized with DKA multiple times since diagnosis. States he was not depressed before his Diabetes diagnosis and that all of his mental health struggles stem from his physical illness. Client reports one prior admission for suicidal thoughts and currently follows with treatment providers at [facility]. Client states he is prescribed Klonopin, Paxil, and Seroquel. Denies AOD use beyond THC. States several family members suffer from depression and that Paxil is a medication that is prescribed to multiple people in his family. CC: Cortez Anderson, Past Med Surg Social Fam HX - Past Medical History Medical history: diabetes - Past Psychiatric History Psychiatric history: Reports: depression, previous psychiatric hospitalization Family psychiatric history: Yes Family Psychiatric History Details: depression and Paxil use in several family members Family History of Suicide: Unknown - Past Surgical History Surgical History: no surgical history, non-contributory - Social History Smoking Status: Current every day smoker Smokeless Tobacco Status: No Alcohol use: none Drug use: marijuana - Family History Mother Living Status: Still Living Hx Family Cardiac Disorders: Yes (HTN) Hx Family Respiratory Disorders: No Hx Family Cancer: No Hx Family GI Disorders: No Hx Family Endocrine Disorder: No Hx Family Neuromuscular Disorders: No Hx Family Neurologic Disorders: No Hx Family HEENT Disorders: No Hx Family Autoimmune Disorders: No Father Living Status: Hx Family Endocrine Disorder: Yes (Diabeties) Medications & Allergies Insulin ASPART [NovoLOG] 0 unit SQ TID PRN 11/11/17 [History] Gabapentin [Neurontin] 100 mg PO TID 12/12/17 [History] Quetiapine Fumarate [Seroquel] 200 mg PO HS 12/23/18 [History] clonazePAM [Klonopin] 0.5 mg PO DAILY 12/23/18 [History] Allergy/AdvReac Type Severity Reaction Status Date / Time Penicillins [PCN] Allergy Rash Verified 12/23/18 09:59 morphine AdvReac Anaphylaxis Verified 12/23/18 09:59 Review of Systems Constitutional: Reports: weakness Eyes: Denies: eye pain, vision change Ears, Nose, Throat: Denies: ear pain, throat pain, dental pain, hearing loss, congestion Cardiovascular: Denies: chest pain, palpitations, dyspnea on exertion Respiratory: Denies: cough, dyspnea, wheezes Gastrointestinal: Reports: nausea Genitourinary male: Denies: urgency, dysuria, frequency, genital lesions Musculoskeletal: Reports: myalgia Integumentary: Denies: rash, lesions, pruritus Neurological: Reports: other Endocrine: Denies: fatigue, heat or cold intolerance Hematologic/Lymphatic: Denies: easy bruising, lymphadenopathy Allergic/Immunologic: Denies: urticaria, itchy eyes Psychiatry Exam - Constitutional Vitals: Temp Pulse Resp BP Pulse Ox 98.6 F 99 18 132/80 96 12/24/18 04:04 12/24/18 02:44 12/24/18 02:44 12/24/18 02:44 12/24/18 02:44 General appearance: thin - Musculoskeletal Gait: other Station: relaxed Strength & Tone: normal for patient - Psychiatric Patient Orientation: Yes Person, Yes Time, Yes Place Level of alertness: Alert Behavior: calm, cooperative Psychomotor activity: Normal Eye Contact: Maintains Eye Contact Mood Description: Depressed Affect description: congruent with mood Speech Volume: Normal Speech pattern: normal rate, normal rhythm, normal tone, fluent, spontaneous Language & Vocabulary: consistent with education Thought Process: Linear Thought Content: No Suicidal ideation, No Homicidal ideation, No Overt delusions Perceptual Disturbances: No Auditory hallucinations, No Visual hallucinations Attention Span Ability: Capable of Focused Attention Memory Description: Grossly Intact Patient Reliability: Reliable Historian Fund of knowledge: Yes abstraction ability, Yes aware of current events Intelligence Estimate: Average Judgment: Limited Insight: Partial Results - Labs Labs: Laboratory Last Values WBC 11.1 K/mcL (4.3-11.1) 12/24/18 04:22 RBC 3.94 M/mcL (4.19-5.50) L 12/24/18 04:22 Hgb 12.5 g/dL (12.9-16.9) L D 12/24/18 04:22 Hct 36.8 % (37.5-50.1) L 12/24/18 04:22 MCV 93.4 fL (83.0-100.0) 12/24/18 04:22 MCH 31.7 pg (28.0-33.3) 12/24/18 04:22 MCHC 34.0 g/dL (31.6-35.5) 12/24/18 04:22 RDW 12.4 % (11.5-14.5) 12/24/18 04:22 Plt Count 170 K/mcL (140-400) 12/24/18 04:22 MPV 9.7 fL (9.4-12.4) 12/24/18 04:22 Immature Gran % 0.8 % (0-4) 12/23/18 08:42 Seg Neutrophils % 84.6 % 12/23/18 08:42 10.9 % 12/23/18 08:42 3.0 % 12/23/18 08:42 0.3 % 12/23/18 08:42 0.4 % 12/23/18 08:42 11.1 K/mcL (1.6-8.9) H 12/23/18 08:42 1.4 K/mcL (0.6-4.6) 12/23/18 08:42 0.4 K/mcL (0.0-1.3) 12/23/18 08:42 0.0 K/mcL (0.0-0.6) 12/23/18 08:42 0.1 K/mcL (0.0-0.2) 12/23/18 08:42 VBG pH 7.51 pH Units (7.32-7.42) H 12/24/18 08:42 VBG pCO2 24 mmHg (41-51) L 12/24/18 08:42 VBG pO2 223 mmHg (25-50) H 12/24/18 08:42 VBG HCO3 19 mEq/L (21-27) L 12/24/18 08:42 Sodium 135 mEq/L (136-145) L 12/24/18 08:03 Potassium 4.1 mEq/L (3.5-5.1) 12/24/18 08:03 Chloride 98 mEq/L (98-107) 12/24/18 08:03 Carbon Dioxide 21 mEq/L (23-29) L 12/24/18 08:03 BUN 15 mg/dL (6-20) 12/24/18 08:03 0.73 mg/dL (0.70-1.30) 12/24/18 08:03 Est GFR ( Amer) > 60 (> 60) 12/24/18 08:03 Est GFR (Non-Af Amer) > 60 (> 60) 12/24/18 08:03 21 (6-26) 12/24/18 08:03 Glucose 325 mg/dL (70-105) H 12/24/18 08:03 POC Glucose 150 mg/dL (70-99) H 12/24/18 03:02 Est Mean Plasma Glucose 255 mg/dl 12/23/18 08:42 10.5 % (-5.6) H 12/23/18 08:42 333 mOsm/kg (280-300) H 12/23/18 08:42 293 (280-300) 12/24/18 08:03 Lactic Acid 3.3 mmol/L (0.5-2.2) H 12/23/18 20:13 Calcium 8.7 mg/dL (8.6-10.3) 12/24/18 08:03 Phosphorus 2.0 mg/dL (2.7-4.5) L 12/24/18 08:03 Magnesium 2.0 mg/dL (1.6-2.6) 12/24/18 08:03 0.8 mg/dL (0.3-1.0) 12/23/18 08:42 AST 39 Units/L (13-39) 12/23/18 08:42 ALT 41 Units/L (7-52) 12/23/18 08:42 97 Units/L (34-104) 12/23/18 08:42 < 0.03 ng/mL (< 0.04) 12/23/18 08:42 8.2 g/dL (6.4-8.9) 12/23/18 08:42 4.6 g/dL (3.5-5.7) 12/23/18 08:42 3.6 g/dL (2.4-3.5) H 12/23/18 08:42 1.3 (1.1-2.2) 12/23/18 08:42 Triglycerides 194 mg/dL (< 150) H 12/23/18 12:11 Cholesterol 206 mg/dL (< 200) H 12/23/18 12:11 LDL Cholesterol, Calc 111 mg/dL (0-99) H 12/23/18 12:11 VLDL Cholesterol, Calc 39 mg/dL (< 31) H 12/23/18 12:11 56 mg/dL (40-59) 12/23/18 12:11 3.7 (0-4.9) 12/23/18 12:11 Amylase 69 Units/L (29-103) 12/23/18 12:11 3 Units/L (11-82) L 12/23/18 12:11 Beta-Hydroxybutyric Acd > 2.00 mmol/L (0.02-0.27) H 12/23/18 08:42 Yellow (Yellow) 12/23/18 09:07 Clear (Clear) 12/23/18 09:07 5.0 pH Units (5.0-8.0) 12/23/18 09:07 Ur Specific Mathews > 1.030 (1.010-1.025) H 12/23/18 09:07 Negative mg/dL (Neg-Trace) 12/23/18 09:07 >=1000 mg/dL (Normal) H 12/23/18 09:07 >=160 mg/dL (Negative) H 12/23/18 09:07 Negative (Negative) 12/23/18 09:07 Negative (Negative) 12/23/18 09:07 Negative (Negative) 12/23/18 09:07 Normal mg/dL (Normal) 12/23/18 09:07 Ur Leukocyte Esterase Negative (Negative) 12/23/18 09:07 Ur Culture Indicated? NO (NO) 12/23/18 09:07 Salicylates < 2.5 mg/dL (15.0-30.0) L 12/23/18 08:42 Negative ng/mL (Bcicnb=321) 12/23/18 09:05 Acetaminophen < 10 mcg/mL (10-20) L 12/23/18 08:42 Ur Barbiturates Screen Negative ng/mL (Wajzev=120) 12/23/18 09:05 Ur Phencyclidine Scrn Negative ng/mL (Cutoff=25) 12/23/18 09:05 Ur Amphetamines Screen Negative ng/mL (Ignmxm=5264) 12/23/18 09:05 U Benzodiazepines Scrn Negative ng/mL (Puvbtr=234) 12/23/18 09:05 Negative ng/mL (Cutoff= 300) 12/23/18 09:05 U Marijuana (THC) Screen Negative ng/mL (Cutoff = 50) 12/23/18 09:05 Ur Drug Screen Interp See Below 12/23/18 09:05 Ethyl Alcohol < 10 mg/dL (Less than 10) 12/23/18 08:42 Consult Discharge Plan - Plan Referrals: Narcisa Hummel CNP [Primary Care Provider] -
--- NOTE | 2018-12-24 14:36 | Internal Med Progress Note ---
<Tha Marie - Last Filed: 12/24/18 16:00> Hospitalist Progress Note - Encounter Date of Encounter: 12/24/18 Time of Encounter: 08:55 - Subjective Interval History: The patient is resting comfortably in bed at time of examination. He says that he is feeling a lot better than he was previously and he has been able to eat s ome this morning. He does still have some nausea and has had some vomiting overnight, however it has resolved substantially in comparison to yesterday. The patient does have a sitter, and upon speaking with him he denies any suicidal or homicidal ideations. - Exam Vitals: Temp Pulse Resp BP Pulse Ox 98.6 F 99 18 132/80 96 12/24/18 04:04 12/24/18 02:44 12/24/18 02:44 12/24/18 02:44 12/24/18 02:44 Exam: Gen: Vitals noted. No acute distress. Eyes: anicteric sclerae, moist conjunctivae; no lid-lag; Pupils equal and reactive to light HENT: Atraumatic; oropharynx clear with moist mucous membranes and no mucosal ulcerations; normal hard and soft palate Neck: Trachea midline; supple, no thyromegaly or lymphadenopathy Cardiac: RRR, no murmur, +S1/S2 Pulmonary: CTA bilaterally, no wheezes, rales or rhonchi, equal chest expansion Abdomen: soft, nontender, no guarding. No masses or hepatosplenomegaly MSK: ROM intact, no joint swelling noted Extremities: no BLE edema, nontender calf, no cyanosis or clubbing Skin: Normal temperature, turgor and texture; no rash, ulcers or subcutaneous nodules Neuro: moves all extremities, no focal deficits. Psych: Appropriate mood and behavior. A&Ox3 - Assessment and Plan (1) DKA (diabetic ketoacidoses) Current Visit: Yes Status: Acute Assessment and Plan: DKA appears to largely resolved, gap has closed today. Most recently 14. Patient states that his CK was caused by insulin pump malfunction and problem list self injection I suspect that this patient may be a poor candidate for use of insulin pump as it seems that she has had multiple issues with this in the past He appears to be doing better and has been tolerating food with use of Zofran fo r when necessary nausea and vomiting We have transition him to basal insulin as well as mealtime insulin sliding scale insulin. Continue to monitor, use fluids as needed for dehydration (2) Dehydration Current Visit: Yes Status: Acute Assessment and Plan: secondary to DKA however appears to have resolved (3) Suicidal ideation Current Visit: Yes Status: Acute Assessment and Plan: I did speak at length with the psychiatrist evaluated the patient. She says "this time she is not necessarily concern that the patient is going to harm himself at this moment, however she cannot be sure as the patient stated upon arrival may have been somewhat different. She says that she would really like to communicate with the patient's mother understand more clearly how the patient's background may have played out, and what his history of psychiatric issues may look like. She does not recommend laying the patient leave, and she would like to reevaluate the patient tomorrow. At this time I will continue the one-to-one coverage, and I will attempt to contact the patient's mother. (4) DVT prophylaxis Current Visit: No Status: Acute Assessment and Plan: heparin sc (5) Leukocytosis Current Visit: Yes Status: Acute Assessment and Plan: Resolved, likely secondary to DKA - Time Spent with Patient Total time spent is greater than 50% in coordination of care (as documented) at patient's floor/unit and/or counseling patient: Internal Medicine: Result - Labs CBC & Chem 7: 12/24/18 04:22 12/24/18 08:03 Labs: Short CBC 12/24/18 Range/Units 04:22 WBC 11.1 (4.3-11.1) K/mcL Hgb 12.5 L D (12.9-16.9) g/dL Hct 36.8 L (37.5-50.1) % Plt Count 170 (140-400) K/mcL BMP 12/23/18 12/23/18 12/24/18 16:16 20:13 00:35 Sodium 125 L D 142 D 141 Potassium 4.2 3.9 3.3 L Chloride 89 L 103 106 Carbon Dioxide 20 L 24 28 BUN 21 H 17 16 Creatinine 0.98 0.91 0.82 Glucose 211 H 164 H 90 Calcium 9.7 8.9 8.8 12/24/18 12/24/18 04:22 08:03 Sodium 136 135 L Potassium 4.1 4.1 Chloride 103 98 Carbon Dioxide 21 L 21 L BUN 15 15 Creatinine 0.71 0.73 Glucose 246 H 325 H Calcium 8.1 L 8.7 Consult Discharge Plan - Plan Referrals: Narcisa Hummel, BULMARO [Primary Care Provider] - <Cortez Anderson - Last Filed: 12/24/18 17:39> Hospitalist Progress Note - Encounter Date of Encounter: 12/24/18 - Exam Vitals: Temp Pulse Resp BP Pulse Ox 99.7 F H 86 18 152/72 99 12/24/18 14:49 12/24/18 14:49 12/24/18 14:49 12/24/18 14:49 12/24/18 14:49 - Assessment and Plan (1) DVT prophylaxis Current Visit: No Status: Acute (2) DKA (diabetic ketoacidoses) Current Visit: Yes Status: Acute (3) Dehydration Current Visit: Yes Status: Acute (4) Suicidal ideation Current Visit: Yes Status: Acute (5) Leukocytosis Current Visit: Yes Status: Acute (6) Tobacco abuse Current Visit: No Status: Chronic - Time Spent with Patient Total time spent is greater than 50% in coordination of care (as documented) at patient's floor/unit and/or counseling patient: Internal Medicine: Result - Labs CBC & Chem 7: 12/24/18 04:22 12/24/18 08:03 Labs: Short CBC 12/24/18 Range/Units 04:22 WBC 11.1 (4.3-11.1) K/mcL Hgb 12.5 L D (12.9-16.9) g/dL Hct 36.8 L (37.5-50.1) % Plt Count 170 (140-400) K/mcL BMP 12/23/18 12/24/18 12/24/18 20:13 00:35 04:22 Sodium 142 D 141 136 Potassium 3.9 3.3 L 4.1 Chloride 103 106 103 Carbon Dioxide 24 28 21 L BUN 17 16 15 Creatinine 0.91 0.82 0.71 Glucose 164 H 90 246 H Calcium 8.9 8.8 8.1 L 12/24/18 08:03 Sodium 135 L Potassium 4.1 Chloride 98 Carbon Dioxide 21 L BUN 15 Creatinine 0.73 Glucose 325 H Calcium 8.7 - Attending Attestation I examined this patient and my medical decision-making was reviewed with the Resident Physician on 12/24/18. I agree with the documented findings, disposition and treatment plan as described except to the extent set forth below. Mr Iglesias is currently admitted for suicidal ideation and acute DKA. He remains moderate to high risk due to potential for worsening clinical status. Mr Iglesias is resting at this time. He has had some episodes of vomiting. No fever or chills. No CP or SOB. Exam alert Comfortable Mucus membranes dry Heart reg No wheeze abd soft No edema I/P 1. Acute DKA - resolved 2. Suicidal ideation - psych to see Further diagnoses and plan as above. <Tha Marie - Last Filed: 12/24/18 16:00> (1) DKA (diabetic ketoacidoses) Qualifiers: Diabetes mellitus type: type 1 Diabetes mellitus complication detail: without coma Qualified Code(s): E10.10 - Type 1 diabetes mellitus with ketoacidosis without coma (5) Leukocytosis Qualifiers: Leukocytosis type: unspecified Qualified Code(s): D72.829 - Elevated white blood cell count, unspecified <Cortez Anderson - Last Filed: 12/24/18 17:39> (2) DKA (diabetic ketoacidoses) Qualifiers: Diabetes mellitus type: type 1 Diabetes mellitus complication detail: without coma Qualified Code(s): E10.10 - Type 1 diabetes mellitus with ketoacidosis without coma (5) Leukocytosis Qualifiers: Leukocytosis type: unspecified Qualified Code(s): D72.829 - Elevated white blood cell count, unspecified
[2018-12-24] MEDS ORDERED: traZODone 50 MG TABLET PO PRN (15:12)
[2018-12-24] MEDS ORDERED: Ondansetron 4 MG/2 ML VIAL ONE (15:37)
[2018-12-24] MEDS: Ondansetron 4 MG/2 ML VIAL IVP SCH ×2 (16:35→19:22)
[2018-12-24] MEDS ORDERED: Insulin DETEMIR 100 UNIT/ML X5UNITS SQ SCH (21:00)
[2018-12-24] MEDS ORDERED: Ketorolac 15 MG/ML VIAL IVP ONE (21:45)
[2018-12-24] MEDS ORDERED: *HR* Dextrose 50 % in Water (Syg) 50 ML SYRINGE IVP PRN (21:47)
[2018-12-24] MEDS ORDERED: Insulin LISPRO 300 UNITS/3 ML VIAL SQ SCH (22:00)
[2018-12-25 00:40] LABS: Basophils % 0.2 %; Hematocrit 36.5 % (37.5-50.1); Hemoglobin 12.6 g/dL (12.9-16.9); Immature Granulocytes % 0.5 % (0-4); Lymphocytes % 20.8 %; Mean Corpuscular HGB Conc 34.5 g/dL (31.6-35.5); Mean Corpuscular Hemoglobin 31.6 pg (28.0-33.3); Mean Corpuscular Volume 91.5 fL (83.0-100.0); Mean Platelet Volume 9.4 fL (9.4-12.4); Monocytes # 0.4 K/mcL (0.0-1.3); Monocytes % 4.6 %; Neutrophils # 7.1 K/mcL (1.6-8.9); Platelet Count 169 K/mcL (140-400); Red Blood Count 3.99 M/mcL (4.19-5.50); Red Cell Distribution Width 12.1 % (11.5-14.5); Segmented Neutrophils % 73.9 %
[2018-12-25 00:57] LABS: BUN/Creatinine Ratio 18 (6-26); Blood Urea Nitrogen 13 mg/dL (6-20); Calcium 8.4 mg/dL (8.6-10.3); Carbon Dioxide 20 mEq/L (23-29); Chloride 95 mEq/L (98-107); Glucose 216 mg/dL (70-105); Osmolality,Calculated 277 (280-300); Potassium 4.1 mEq/L (3.5-5.1); Sodium 130 mEq/L (136-145); eGFR For Non-African Americans > 60 (> 60)
[2018-12-25] MEDS: Ondansetron 4 MG/2 ML VIAL IVP PRN ×2 (02:01→08:31)
[2018-12-25] MEDS ORDERED: 0.9 % Sodium Chloride 1,000 ML IVC SCH (05:45)
[2018-12-25] MEDS: *HR* Heparin 5,000 UNIT/ML VIAL SQ SCH (05:53)
[2018-12-25] MEDS: clonazePAM 1 MG TABLET PO SCH (05:57)
[2018-12-25] MEDS: Folic Acid 1 MG TABLET PO SCH (08:31)
[2018-12-25] MEDS: Gabapentin 100 MG CAPSULE PO SCH (08:31)
[2018-12-25] MEDS: Thiamine (B-1) 100 MG TABLET PO SCH (08:31)
[2018-12-25] MEDS: Insulin LISPRO 300 UNITS/3 ML VIAL SQ SCH ×2 (08:32→08:33)
[2018-12-25] MEDS: Pantoprazole 40 MG VIAL IVP SCH (08:32)
--- NOTE | 2018-12-25 10:00 | Psychiatry Progress Note ---
Date of Encounter: 12/25/18 Time of Encounter: 09:51 Subjective Interval history: Client reports he feels much better today. Looks better. He is more alert with more affect. States he slept well with the Trazodone. Feels his mood is stable. Denies any further SI, intent, or plan. 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 Neither she nor patient want an inpatient mental health admission at this time. She plans to get a lockbox and take control of his medications. Client is in agreement with this. He is already linked with outpatient services but he is commuting to [facility] for treatment and wants to find a provider closer to home that he can see more frequently. At this he is expressing future orientation and has safety plans in place. Review of Systems Constitutional: Denies: fever, chills, weakness, weight change Eyes: Denies: eye pain, vision change Ears, Nose, Throat: Denies: ear pain, throat pain, dental pain, hearing loss, congestion Cardiovascular: Denies: chest pain, palpitations, dyspnea on exertion Respiratory: Denies: cough, dyspnea, wheezes Gastrointestinal: Denies: abdominal pain, nausea, vomiting, diarrhea, constipation Musculoskeletal: Denies: joint swelling, joint pain Neurological: Denies: headache, weakness, numbness, memory loss Results - Vital Signs Vital Signs: Temp Pulse Resp BP Pulse Ox 99.2 F 81 18 158/76 97 12/25/18 07:34 12/25/18 07:34 12/25/18 07:34 12/25/18 07:34 12/25/18 07:34 - Labs Labs: Laboratory Results - last 24 hr 12/23/18 12/23/18 12/23/18 17:10 17:56 18:58 WBC RBC Hgb Hct MCV MCH MCHC RDW Plt Count MPV Immature Gran % Seg Neutrophils % Lymphocytes % Monocytes % Eosinophils % Basophils % Neutrophils # Lymphocytes # Monocytes # Eosinophils # Basophils # Sodium Potassium Chloride Carbon Dioxide BUN Creatinine Est GFR ( Amer) Est GFR (Non-Af Amer) BUN/Creatinine Ratio Glucose POC Glucose 201 H 272 H 296 H Calculated Osmolality Calcium 12/23/18 12/23/18 12/23/18 19:57 20:53 21:59 WBC RBC Hgb Hct MCV MCH MCHC RDW Plt Count MPV Immature Gran % Seg Neutrophils % Lymphocytes % Monocytes % Eosinophils % Basophils % Neutrophils # Lymphocytes # Monocytes # Eosinophils # Basophils # Sodium Potassium Chloride Carbon Dioxide BUN Creatinine Est GFR ( Amer) Est GFR (Non-Af Amer) BUN/Creatinine Ratio Glucose POC Glucose 183 H 136 H 94 Calculated Osmolality Calcium 12/23/18 12/24/18 12/24/18 23:02 00:01 00:02 WBC RBC Hgb Hct MCV MCH MCHC RDW Plt Count MPV Immature Gran % Seg Neutrophils % Lymphocytes % Monocytes % Eosinophils % Basophils % Neutrophils # Lymphocytes # Monocytes # Eosinophils # Basophils # Sodium Potassium Chloride Carbon Dioxide BUN Creatinine Est GFR ( Amer) Est GFR (Non-Af Amer) BUN/Creatinine Ratio Glucose POC Glucose 138 H 65 L 145 H Calculated Osmolality Calcium 12/24/18 12/24/18 12/24/18 00:03 00:24 00:51 WBC RBC Hgb Hct MCV MCH MCHC RDW Plt Count MPV Immature Gran % Seg Neutrophils % Lymphocytes % Monocytes % Eosinophils % Basophils % Neutrophils # Lymphocytes # Monocytes # Eosinophils # Basophils # Sodium Potassium Chloride Carbon Dioxide BUN Creatinine Est GFR ( Amer) Est GFR (Non-Af Amer) BUN/Creatinine Ratio Glucose POC Glucose 67 L 90 82 Calculated Osmolality Calcium 12/24/18 12/24/18 12/24/18 01:52 03:02 07:11 WBC RBC Hgb Hct MCV MCH MCHC RDW Plt Count MPV Immature Gran % Seg Neutrophils % Lymphocytes % Monocytes % Eosinophils % Basophils % Neutrophils # Lymphocytes # Monocytes # Eosinophils # Basophils # Sodium Potassium Chloride Carbon Dioxide BUN Creatinine Est GFR ( Amer) Est GFR (Non-Af Amer) BUN/Creatinine Ratio Glucose POC Glucose 129 H 150 H 301 H Calculated Osmolality Calcium 12/24/18 12/24/18 12/24/18 11:08 16:39 19:21 WBC RBC Hgb Hct MCV MCH MCHC RDW Plt Count MPV Immature Gran % Seg Neutrophils % Lymphocytes % Monocytes % Eosinophils % Basophils % Neutrophils # Lymphocytes # Monocytes # Eosinophils # Basophils # Sodium Potassium Chloride Carbon Dioxide BUN Creatinine Est GFR ( Amer) Est GFR (Non-Af Amer) BUN/Creatinine Ratio Glucose POC Glucose 137 H 391 H 268 H Calculated Osmolality Calcium 12/25/18 12/25/18 00:21 00:21 WBC 9.6 RBC 3.99 L Hgb 12.6 L Hct 36.5 L MCV 91.5 MCH 31.6 MCHC 34.5 RDW 12.1 Plt Count 169 MPV 9.4 Immature Gran % 0.5 Seg Neutrophils % 73.9 Lymphocytes % 20.8 Monocytes % 4.6 Eosinophils % 0.0 Basophils % 0.2 Neutrophils # 7.1 Lymphocytes # 2.0 Monocytes # 0.4 Eosinophils # 0.0 Basophils # 0.0 Sodium 130 L Potassium 4.1 Chloride 95 L Carbon Dioxide 20 L BUN 13 Creatinine 0.72 Est GFR ( Amer) > 60 Est GFR (Non-Af Amer) > 60 BUN/Creatinine Ratio 18 Glucose 216 H POC Glucose Calculated Osmolality 277 L Calcium 8.4 L - Impressions ITS Impressions Chest X-Ray 12/23/18 10:29 IMPRESSION: No acute process. D/ / Tha Davis MD / Tha Davis MD Interpreting Provider: Tha Davis MD Assessment and Plan (1) Major depression Current visit: Yes Status: Acute Additional Plan: Client reports feeling much better and denies any ongoing SI, intent, or plan. 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 She plans to get a lockbox and assume control of his medications. He is linked with outpatient services through [facility] but would prefer a provider closer to home. Recommend a Marketing Services Manager Consult prior to discharge to provide him with referral information for providers in [place]. Recommend counseling in addition to medication management. Client states he slept well with the Trazodone so would continue this in lieu of the Seroquel due to his difficulties in managing his blood sugars. Do not think he needs a sitter. Can discharge home once medically stable to follow up as an outpatient. Qualifiers: Major depression recurrence: recurrent Active/Remission status: currently active Major depression episode severity: severe Psychotic features: without psychotic features Qualified Code(s): F33.2 - Major depressive disorder, recurrent severe without psychotic features Consult Discharge Plan - Plan Referrals: Narcisa Hummel, BENDING SHED WORKER [Primary Care Provider] - Psychiatry Exam - Constitutional Vitals: Temp Pulse Resp BP Pulse Ox 99.2 F 81 18 158/76 97 12/25/18 07:34 12/25/18 07:34 12/25/18 07:34 12/25/18 07:34 12/25/18 07:34 General appearance: age & developmentally appropriate, well-groomed, well- nourished - Musculoskeletal Gait: other Station: relaxed Strength & Tone: normal for patient - Psychiatric Patient Orientation: Yes Person, Yes Time, Yes Place Level of alertness: Alert Behavior: calm, cooperative Psychomotor activity: Normal Eye Contact: Maintains Eye Contact Mood Description: Euthymic/stable Affect description: congruent with mood, full range Speech Volume: Normal Speech pattern: normal rate, normal rhythm, normal tone, fluent, spontaneous Language & Vocabulary: consistent with education Thought Process: Linear, Goal Oriented Thought Content: No Suicidal ideation, No Homicidal ideation, No Overt delusions Perceptual Disturbances: No Auditory hallucinations, No Visual hallucinations Attention Span Ability: Capable of Focused Attention Memory Description: Grossly Intact Patient Reliability: Reliable Historian Fund of knowledge: Yes abstraction ability, Yes aware of current events Intelligence Estimate: Average Judgment: Limited Insight: Partial
[2018-12-25 11:42] VITALS: BP 149/78
--- NOTE | 2018-12-25 15:15 | Discharge Summary ---
<Roman Castro - Last Filed: 12/25/18 15:12> - NOTES TO OUTPATIENT PROVIDER Notes to Outpatient Provider: Patient signed out AMA after admission for DKA. Anion gap was 15 when he left, so the full work-up and treatment was not completed. He reports he was feeling better so he wanted to leave. The plan was to optimize his insulin regimen prior to discharge, the patient wanted to leave. He reports his insulin pump continues to malfunction, so he is using short- acting insulin to make up for when the pump is not working. Psych did see him for SI, eventually deemed him safe to leave, and changed his seroquel to trazodone for sleep and recommended a lock-box for his medications. Date of Encounter: 12/25/18 Time of Encounter: 10:05 - Discharge Diagnosis (1) DKA (diabetic ketoacidoses) Priority: Primary Status: Acute Qualifiers: Diabetes mellitus type: type 1 Diabetes mellitus complication detail: without coma Qualified Code(s): E10.10 - Type 1 diabetes mellitus with ketoacidosis without coma (2) Dehydration Priority: Secondary Status: Acute (3) Suicidal ideation Priority: Secondary Status: Acute (4) Leukocytosis Priority: Secondary Status: Acute Qualifiers: Leukocytosis type: other Qualified Code(s): D72.828 - Other elevated white blood cell count Hospital course: Mr. Iglesias is a 38 year old male with PMH of type 1 diabetes, on insulin pump, and major depression, admitted to [facility] for DKA. He ultimately signed out AGAINST MEDICAL ADVICE on 12/25/18. Glucose >800 initially. Per mom's report this is his fifth DKA in the past year. He reports he had had difficulty with his insulin pump functioning correctly. He states he has been using NovoLog in the meantime has had been having a hard time controlling his sugars. Reported symptoms of nausea, vomiting, and epigastric pain. He did present leukocytosis of 13 and had some low-grade temperatures throughout his stay. These symptoms improved throughout his hospitalization, however at the time of him leaving AMA there was still concerned that his DKA was not completely resolved with anion gap of 15. The hospital team is planning on working up to find a identifiable cause of his DKA with further work-up. His sugars were still not yet well controlled at the time of his leaving and we were planning on optimizing a good regimen prior to discharge. I offered to write out an insulin regimen for him, but he refused stating he wanted to leave and that he had insulin at home. 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 He also had tried to commit suicide by ingesting Klonopin pills 4 days prior to admission, but he had refused coming to the hospital that time and never lost consciousness. Psychiatry evaluated the patient and recommended continued monitoring overnight on 12/24/18. His seroquel was stopped and replaced with trazodone, so the trazodone was continued. Repeat evaluation on 12/25/18, he denies further SI, intent, or plan, so he was deemed safe to leave. His mother is to get a lock-box for his medications. He follows with [facility]. The patient left AGAINST MEDICAL ADVICE on 12/25/18 without good control of his diabetes. He was able to discuss the risks of leaving and that without further treatment he would likely have elevated glucose again, possibly resulting in another hospitalization. Discharge discussed with: patient (signed-out AMA) - Time Spent with Patient Total time spent providing and/or coordinating discharge services: - Discharge Medications Prescriptions: New Trazodone HCl 50 mg PO HS PRN #30 tablet PRN Reason: Sleep Continued Insulin ASPART [NovoLOG] 0 unit SQ TID PRN PRN Reason: PER SLIDING SCALE Gabapentin [Neurontin] 100 mg PO TID Paroxetine [Paxil] 30 mg PO QAM clonazePAM [Clonazepam] 0.5 mg PO BID Discontinued Quetiapine Fumarate [Seroquel] 200 mg PO HS Home Medications: Insulin ASPART [NovoLOG] 0 unit SQ TID PRN 11/11/17 [History] Gabapentin [Neurontin] 100 mg PO TID 12/12/17 [History] Paroxetine [Paxil] 30 mg PO QAM 12/24/18 [History] clonazePAM [Clonazepam] 0.5 mg PO BID 12/24/18 [History] Trazodone HCl 50 mg PO HS PRN #30 tablet 12/25/18 [Rx] Allergies/Adverse Reactions: Allergy/AdvReac Type Severity Reaction Status Date / Time Penicillins [PCN] Allergy Rash Verified 12/23/18 09:59 morphine AdvReac Anaphylaxis Verified 12/23/18 09:59 Date of admission: 12/23/18 16:39 Primary care physician: Narcisa Hummel, Consults: 12/23/18 11:07 Consult to Psychiatry [CONS] Stat Consulting Provider: Psych[facility] Reason consult: Other Other reason and/or additional details: axel was suicidal attempted suicide by ingesting 60 klonipin pills 5 days ago, now in DKA- ED physciian did not pink slip him however has placed him on medical hold Time Notified: 11:08 Call Completed: Yes 12/25/18 10:27 Consult to Master Esthetician [CONS] Routine Reason for SW Consult: Patient is interested in providers closer to home in [place] Discharging clinician: Roman Castro Anticipated date of discharge: 12/25/18 - Constitutional Vitals: Temp Pulse Resp BP Pulse Ox 99.0 F 73 18 149/78 99 12/25/18 11:41 12/25/18 11:41 12/25/18 11:41 12/25/18 11:41 12/25/18 11:41 Exam: GEN: No acute distress, A&O3 HEAD: Atraumatic, normocephalic EYES: Pupils symmetric, sclera white, conjunctiva pink HEART: RRR, normal S1 and S2, no murmurs LUNGS: Clear to auscultation bilaterally, no wheezes, rhonchi, or crackles ABD: Soft, nontender, nondistended, bowel sounds present EXT: No edema noted, pulses 2/4 NEURO: No focal deficits, cooperative with exam - Patient Status Disposition: Left Against Medical Advice Condition: Undetermined - Discharge Instructions Follow Up With: Narcisa Hummel, [place] [Primary Care Provider] - <Cortez Anderson - Last Filed: 12/25/18 17:12> Date of Encounter: 12/25/18 - Discharge Diagnosis (1) DKA (diabetic ketoacidoses) Status: Acute Qualifiers: Diabetes mellitus type: type 1 Diabetes mellitus complication detail: without coma Qualified Code(s): E10.10 - Type 1 diabetes mellitus with ketoacidosis without coma (2) Dehydration Status: Acute (3) Suicidal ideation Status: Acute (4) Leukocytosis Priority: Secondary Status: Resolved Qualifiers: Leukocytosis type: unspecified Qualified Code(s): D72.829 - Elevated white blood cell count, unspecified (5) Tobacco abuse Priority: Secondary Status: Chronic Hospital course: Mr. Iglesias is a 38 year old male - Time Spent with Patient Total time spent providing and/or coordinating discharge services: 20min Date of admission: 12/23/18 16:39 Primary care physician: Narcisa Hummel, Consults: 12/23/18 11:07 Consult to Psychiatry [CONS] Stat Consulting Provider: Psychiatry [place] Reason consult: Other Other reason and/or additional details: axel was suicidal attempted suicide by ingesting 60 klonipin pills 5 days ago, now in DKA- ED physciian did not pink slip him however has placed him on medical hold Time Notified: 11:08 Call Completed: Yes 12/25/18 10:27 Consult to Master Esthetician [CONS] Routine Reason for SW Consult: Patient is interested in providers [facility] to [facility] [place] Vitals: Temp Pulse Resp BP Pulse Ox 99.0 F 73 18 149/78 99 12/25/18 11:41 12/25/18 11:41 12/25/18 11:41 12/25/18 11:41 12/25/18 11:41 - Attending Attestation I examined this patient and my medical decision-making was reviewed with the Resident Physician on 12/25/18. I agree with the documented findings, disposition and treatment plan as described except to the extent set forth below. Mr Iglesias has been admitted for acute DKA. He also had suicidal ideation and was seen by psych and cleared. Today he was adamant about leaving. We are concerned he still is at risk with DKA and want to monitor him tonight. Despite being told risks he insists on leaving. Exam alert Comfortable Mucus membranes dry Heart not tachy No wheeze Plan AMA discharge One month of Trazadone given.
== END 2018-12-25 12:00 | disposition left against medical advice (07) | DRG 420 ==
LOC: EMEROOARM 07:56 → ICNU 16:39 → SUATTDRO 16:39 → ICNU 17:10 → 3BNU 12-24 06:43
PROVIDERS: ADMIT Internal Medicine; ATTEND Internal Medicine

== ENCOUNTER 2019-01-15 22:25 | Observation (INO) ==
--- NOTE | 2019-01-15 23:25 | Emergency Department Note ---
Disposition Clinical Impression: Liver enzyme elevation, Hypoalbuminemia Edema Qualifiers: Edema type: generalized Qualified Code(s): R60.1 - Generalized edema Disposition: Admitted As Inpatient Condition: Fair General Adult HPI - General Chief complaint: ED Extremity Problem,Nontraumatic Stated complaint: "Swollen waist down" Time Seen by Provider: 01/15/19 23:09 Source: patient Mode of arrival: private vehicle Limitations: no limitations Nursing Notes Reviewed: Yes Vital Signs Reviewed: Yes - History of Present Illness HPI Narrative: Patient with history of insulin-dependent diabetes and recent admission for DKA presents from home with his mom for evaluation of lower extremity edema. He states that he has had a lot of swelling in his legs for the past two weeks, getting progressively worse and now he has swelling in the scrotum and lower abdomen. He has noticed a little dyspnea on exertion as well. No fever, chills, nausea or vomiting, chest pain, shortness of breath at rest, paresthesias or weakness. His mom states that he has had a normal appetite - much better than usual - for the past week. He was recently switched from insulin pump to insulin pen and also was taken off his Seroquel and Klonopin, and started on trazodone. Pt Subjective Complaint: "Swelling from the waist down" Onset (ago): week(s) Location: pelvis, genitals, left, right, lower extremity Radiation: non-radiation Pain Severity: mild Pain Scale: 4 Quality: dull (Pressure) Consistency: constant Improves with: nothing Worsens with: nothing Associated symptoms: Denies: confusion, chest pain, cough, diaphoresis, fever/chills, headaches, loss of appetite, malaise, nausea/vomiting, rash, seizure, shortness of breath, syncope, weakness Treatments Prior to Arrival: none - Related Data Home Medications Medication Instructions Recorded Confirmed Insulin ASPART [NovoLOG] 0 unit SQ TID PRN 11/11/17 12/23/18 Gabapentin [Neurontin] 100 mg PO TID 12/12/17 12/23/18 Paroxetine [Paxil] 30 mg PO QAM 12/24/18 12/24/18 clonazePAM [Clonazepam] 0.5 mg PO BID 12/24/18 12/24/18 Previous Rx's Medication Instructions Recorded Trazodone HCl 50 mg PO HS PRN #30 tablet 12/25/18 Allergies Allergy/AdvReac Type Severity Reaction Status Date / Time Penicillins [PCN] Allergy Rash Verified 01/15/19 22:31 morphine AdvReac Anaphylaxis Verified 01/15/19 22:31 All systems ED: reviewed and negative except as stated. Review of Systems: As Per HPI Constitutional: Reports: weight change (was down but appetite is now much better and weight is going back up). Denies: fever, chills, weakness Eyes: Denies: eye pain, eye discharge, vision change ENT ED: Denies: ear pain, throat pain, congestion, dysphagia Cardiovascular: Reports: as per HPI, dyspnea on exertion ('A little"), edema. Denies: chest pain, palpitations, orthopnea, syncope Respiratory: Denies: cough, dyspnea, wheezes Gastrointestinal: Denies: abdominal pain, nausea, vomiting, diarrhea, constipation Past Medical History - Past Medical History Attestation: Yes The following information was validated with the patient. Source: patient Medical history: Reports: diabetes Surgical history: Reports: no surgical history, non-contributory Psychiatric history: Reports: depression, previous psychiatric hospitalization - Social History Smoking Status: Current every day smoker Smokeless Tobacco Status: No Alcohol use: Reports: none Drug use: Reports: marijuana Physical Exam - General Limitations: no limitations General appearance: alert, in no apparent distress - Head Head exam: atraumatic, normocephalic, normal inspection - Eye Eye exam: Present: normal appearance, PERRL, EOMI. Absent: scleral icterus, conjunctival injection, periorbital swelling, periorbital tenderness - ENT ENT exam: normal exam, normal oropharynx, mucous membranes moist - Neck Neck exam: Present: normal inspection, full ROM, trachea midline. Absent: tenderness, meningismus - Chest Chest inspection: Present: normal inspection - Respiratory Respiratory exam: Present: normal lung sounds bilaterally. Absent: respiratory distress, wheezes, stridor, accessory muscle use, prolonged expiratory phase - Cardiovascular Cardiovascular exam: Present: regular rate, normal rhythm, normal heart sounds - Abdominal Exam Abdominal exam: Present: soft, Non-Tender. Absent: tenderness, distention, guarding, rebound, rigidity, mass - Extremities Exam Extremities exam: Present: normal capillary refill, pedal edema (2+ pitting edema, bilateral feet to abdomen). Absent: tenderness - Expanded Lower Extremity Exam Hip/Pelvis exam: Present: normal inspection Upper leg exam: Present: normal inspection Knee exam: Present: normal inspection, knee extension intact Lower leg exam: Present: swelling. Absent: erythema Ankle exam: Present: swelling. Absent: erythema Foot/toe exam: Present: swelling. Absent: erythema Neurovascular/Tendon exam: Present: normal capillary refill, normal fine/light touch. Absent: pulse deficit, motor deficit, sensory deficit, tendon deficit, extremity cold to touch, pallor, foot drop, peroneal nerve deficit, significant pain with passive ROM of distal joint Gait: not tested/not observed - Back Exam Back exam: Present: normal inspection - Neurological Exam Neurological exam: Present: alert, oriented X3, CN II-XII intact - Psychiatric Psychiatric exam: Present: normal affect, normal mood - Skin Skin exam: Present: warm, dry, intact, normal color Course Vital Signs Temperature 98.8 F 01/15/19 22:27 Pulse Rate 97 01/15/19 22:27 Respiratory Rate 16 01/15/19 22:27 Blood Pressure 126/77 01/15/19 22:27 O2 Sat by Pulse Oximetry 98 01/15/19 22:27 Temperature 98.8 F 01/15/19 22:27 Pulse Rate 97 01/15/19 22:27 Respiratory Rate 16 01/15/19 22:27 Blood Pressure 126/77 01/15/19 22:27 O2 Sat by Pulse Oximetry 98 01/15/19 22:27 Oxygen Delivery Oxygen Delivery Room Air Medical Decision Making - Medical Records Medical records reviewed: Yes I reviewed the patient's medical records. - Lab Data Lab results reviewed: Yes I reviewed the patient's lab results. Lab results narrative: Laboratory Last Values WBC 5.8 K/mcL (4.3-11.1) 01/16/19 01:03 RBC 3.16 M/mcL (4.19-5.50) L 01/16/19 01:03 Hgb 10.2 g/dL (12.9-16.9) L 01/16/19 01:03 Hct 30.9 % (37.5-50.1) L 01/16/19 01:03 MCV 97.8 fL (83.0-100.0) D 01/16/19 01:03 MCH 32.3 pg (28.0-33.3) 01/16/19 01:03 MCHC 33.0 g/dL (31.6-35.5) 01/16/19 01:03 RDW 14.1 % (11.5-14.5) 01/16/19 01:03 Plt Count 166 K/mcL (140-400) 01/16/19 01:03 MPV 9.8 fL (9.4-12.4) 01/16/19 01:03 Immature Gran % 0.5 % (0-4) 01/16/19 01:03 Seg Neutrophils % 42.9 % 01/16/19 01:03 46.0 % 01/16/19 01:03 7.7 % 01/16/19 01:03 2.2 % 01/16/19 01:03 0.7 % 01/16/19 01:03 2.5 K/mcL (1.6-8.9) 01/16/19 01:03 2.7 K/mcL (0.6-4.6) 01/16/19 01:03 0.5 K/mcL (0.0-1.3) 01/16/19 01:03 0.1 K/mcL (0.0-0.6) 01/16/19 01:03 0.0 K/mcL (0.0-0.2) 01/16/19 01:03 Sodium 134 mEq/L (136-145) L 01/16/19 01:03 Potassium 3.8 mEq/L (3.5-5.1) 01/16/19 01:03 Chloride 100 mEq/L (98-107) 01/16/19 01:03 Carbon Dioxide 28 mEq/L (23-29) 01/16/19 01:03 BUN 11 mg/dL (6-20) 01/16/19 01:03 0.59 mg/dL (0.70-1.30) L 01/16/19 01:03 Est GFR ( Amer) > 60 (> 60) 01/16/19 01:03 Est GFR (Non-Af Amer) > 60 (> 60) 01/16/19 01:03 19 (6-26) 01/16/19 01:03 Glucose 279 mg/dL (70-105) H 01/16/19 01:03 287 (280-300) 01/16/19 01:03 Calcium 8.5 mg/dL (8.6-10.3) L 01/16/19 01:03 0.4 mg/dL (0.3-1.0) 01/16/19 01:03 0.1 mg/dL (0.0-0.2) 01/16/19 01:03 0.3 mg/dL (0.0-1.2) 01/16/19 01:03 AST 173 Units/L (13-39) H 01/16/19 01:03 ALT 337 Units/L (7-52) H 01/16/19 01:03 139 Units/L (34-104) H 01/16/19 01:03 B-Natriuretic Peptide 98 pg/mL (Less than 100) 01/16/19 01:03 5.8 g/dL (6.4-8.9) L 01/16/19 01:03 3.4 g/dL (3.5-5.7) L 01/16/19 01:03 2.4 g/dL (2.4-3.5) 01/16/19 01:03 1.4 (1.1-2.2) 01/16/19 01:03 TSH 1.310 mcIU/mL (0.340-5.600) 01/16/19 01:03 Hepatitis A IgM Ab Nonreactive (Nonreactive) 01/16/19 00:03 Hep Bs Antigen Nonreactive (Nonreactive) 01/16/19 00:03 Hep B Core IgM Ab Nonreactive (Nonreactive) 01/16/19 00:03 Hepatitis C Ab Screen Reactive (Nonreactive) H 01/16/19 00:03 - Radiology Data Radiology results reviewed: Yes I reviewed the patient's radiology results. Chest X-Ray 01/15/19 22:56 IMPRESSION: No acute disease. D/ / Staci Calvert Cha, MD / Staci Calvert Cha, MD Interpreting Provider: Staci Calvert Cha, MD
[2019-01-16 00:47] LABS: Alanine Aminotransferase 337 Units/L (7-52); Albumin 3.4 g/dL (3.5-5.7); Albumin/Globulin Ratio 1.4 (1.1-2.2); Alkaline Phosphatase 139 Units/L (34-104); Aspartate Amino Transferase 173 Units/L (13-39); BUN/Creatinine Ratio 19 (6-26); Bilirubin,Direct 0.1 mg/dL (0.0-0.2); Bilirubin,Indirect 0.3 mg/dL (0.0-1.2); Bilirubin,Total 0.4 mg/dL (0.3-1.0); Blood Urea Nitrogen 11 mg/dL (6-20); Calcium 8.5 mg/dL (8.6-10.3); Carbon Dioxide 28 mEq/L (23-29); Chloride 100 mEq/L (98-107); Globulin 2.4 g/dL (2.4-3.5); Glucose 279 mg/dL (70-105); Osmolality,Calculated 287 (280-300); Potassium 3.8 mEq/L (3.5-5.1); Sodium 134 mEq/L (136-145); Total Protein 5.8 g/dL (6.4-8.9); eGFR For Non-African Americans > 60 (> 60)
[2019-01-16 01:26] LABS: Basophils % 0.7 %; Eosinophils # 0.1 K/mcL (0.0-0.6); Eosinophils % 2.2 %; Hematocrit 30.9 % (37.5-50.1); Hemoglobin 10.2 g/dL (12.9-16.9); Immature Granulocytes % 0.5 % (0-4); Lymphocytes # 2.7 K/mcL (0.6-4.6); Mean Corpuscular Hemoglobin 32.3 pg (28.0-33.3); Mean Corpuscular Volume 97.8 fL (83.0-100.0); Mean Platelet Volume 9.8 fL (9.4-12.4); Monocytes # 0.5 K/mcL (0.0-1.3); Monocytes % 7.7 %; Neutrophils # 2.5 K/mcL (1.6-8.9); Platelet Count 166 K/mcL (140-400); Red Blood Count 3.16 M/mcL (4.19-5.50); Red Cell Distribution Width 14.1 % (11.5-14.5); Segmented Neutrophils % 42.9 %
[2019-01-16] MEDS ORDERED: *HR* LORazepam 2 MG/ML VIAL IVP ONE (02:36)
[2019-01-16 03:07] LABS: Bilirubin,Urine Negative (Negative); Blood,Urine Negative (Negative); Clarity,Urine Clear (Clear); Color,Urine Yellow (Yellow); Glucose,Urine (UA) >=1000 mg/dL (Normal); Ketones,Urine Negative (Negative); Leukocyte Esterase,Urine Negative (Negative); Nitrite,Urine Negative (Negative); Protein,Urine Negative (Neg-Trace); Specific Gravity,Urine > 1.030 (1.010-1.025); Urobilinogen,Urine Normal (Normal)
--- NOTE | 2019-01-16 03:18 | Internal Med History&Physical ---
<Marko Lawton S - Last Filed: 01/16/19 04:29> Date of Encounter: 01/16/19 Time of Encounter: 04:29 Internal Medicine - H&P: HPI Chief complaint: swelling Admitted From: Home Plans for Post Hospital Care: Home History of present illness: Mr. Iglesias is a 38 year old male with a PMH of T1DM diagnosed at 29yrs old and multiple admissions for DKA since diagnosis. He states that he is noncompliant and has glucose readings all over the place. He was on an insulin pump but has recently switched to an insulin pen due to the pump continually malfunctioning. He states his morning BG is sometimes in the 250's, sometimes it is in the 80's. He states that 4 days ago he had sudden onset swelling of his LE bilaterally, abdomen and scrotum. He has mild SOB on exertion. In the ER the pt was found to have an unremarkable CBC. BMP showed a glucose of 279. ALT, AST and alk phos elevated. UA showed glucose >1000. Albumin at 3.4. He will be admitted for new onset edema. Past Med Surg Social Fam HX - Past Medical History Medical history: diabetes Additional medical history: neuropathy Psychiatric history: depression, previous psychiatric hospitalization - Past Surgical History Surgical History: no surgical history, non-contributory Additional surgical history: Surgery to back in 2007 and October 2017 had surgery to foot due to diabetic foot ulcer, currently healed. - Social History Smoking Status: Current every day smoker Smokeless Tobacco Status: No Alcohol use: none Drug use: marijuana - Family History Mother Living Status: Still Living Hx Family Cardiac Disorders: Yes (HTN) Hx Family Respiratory Disorders: No Hx Family Cancer: No Hx Family GI Disorders: No Hx Family Endocrine Disorder: No Hx Family Neuromuscular Disorders: No Hx Family Neurologic Disorders: No Hx Family HEENT Disorders: No Hx Family Autoimmune Disorders: No Father Living Status: Hx Family Endocrine Disorder: Yes (Diabeties) Internal Medicine - H&P: Meds Insulin ASPART [NovoLOG] 0 unit SQ TID PRN 11/11/17 [History] Gabapentin [Neurontin] 100 mg PO TID 12/12/17 [History] Trazodone HCl 50 mg PO HS PRN #30 tablet 12/25/18 [Rx] Allergy/AdvReac Type Severity Reaction Status Date / Time Penicillins [PCN] Allergy Rash Verified 01/15/19 22:31 morphine AdvReac Anaphylaxis Verified 01/15/19 22:31 All Systems PM: A 10-system review of systems was performed and is negative for pertinent findings except as documented above in the HPI. - Constitutional Constitutional: lethargy, no chills, no fever(s) - EENT Eyes: no blurry vision, no change in vision Ears: no tinnitus Nose, mouth and throat: no bleeding gums, no epistaxis - Cardiovascular Cardiovascular ROS IM: edema, no chest pain, no dyspnea, no dyspnea on exertion - Respiratory Respiratory: no cough, no dyspnea on exertion, no chest congestion - Gastrointestinal Gastrointestinal: abdominal pain, nausea, no diarrhea, no vomiting - Genitourinary Genitourinary ROS male: scrotal swelling, no difficulty urinating, no dysuria, no genital lesions, no hematuria, no urinary frequency, no urinary hesitancy, no urinary incontinence - Musculoskeletal Musculoskeletal ROS IM: muscle weakness, no joint swelling, no numbness, no tingling - Integumentary Integumentary IM: no erythema, no unusual bruising - Neurological Neurological ROS: no numbness, no tingling - Psychiatric Psychiatric: anxiety, depression - Endocrine Endocrine IM: no fatigue - Hematologic/Lymphatic Hematologic/Lymphatic: no easy bleeding, no easy bruising - Constitutional Vitals: Temp Pulse Resp BP Pulse Ox 98.8 F 80 16 110/66 96 01/15/19 22:27 01/16/19 02:53 01/16/19 02:53 01/16/19 02:53 01/16/19 02:53 General appearance: Present: mild distress, A&O X 3, answers questions appropriately Exam: x - Head Head exam: Present: atraumatic, normocephalic - Eye Eye exam: Present: conjuntiva pink, sclera anicteric. Absent: periorbital s welling - ENT ENT exam: Present: mucous membranes dry - Neck Neck exam general surgery: Present: supple, trachea midline - Respiratory Respiratory exam: Present: CTAB. Absent: accessory muscle use, chest wall tenderness, prolonged expiratory phase, respiratory distress, rhonchi, stridor, wheezes, tachypnea - Cardiovascular Cardiovascular exam: Present: RRR, +S1, +S2 - GI/Abdominal GI/Abdominal exam: Present: tenderness (TTP in all quadrants), no peritoneal signs. Absent: distended, guarding, rebound, rigid - exam: Present: scrotal swelling, testicular tenderness External exam: Present: swelling. Absent: lesions - Extremities Exam Extremities exam: Present: pedal edema (2+ pitting edema), warm Additional comments: swelling 2+ edema knees down, feet are tender to palpation and red - Neurological Exam Neurological exam: Present: alert, CN II-XII intact, oriented X3, no focal deficits, strengths equal and symetr throughout - Psychiatric Psychiatric exam: Present: anxious - Skin Skin exam: Present: dry, intact, warm Internal Med - H&P Results - Labs CBC & Chem 7: 01/16/19 01:03 01/16/19 01:03 Labs: Short CBC 01/16/19 Range/Units 01:03 WBC 5.8 (4.3-11.1) K/mcL Hgb 10.2 L (12.9-16.9) g/dL Hct 30.9 L (37.5-50.1) % Plt Count 166 (140-400) K/mcL Neutrophils # 2.5 (1.6-8.9) K/mcL BMP 01/16/19 01:03 Sodium 134 L Potassium 3.8 Chloride 100 Carbon Dioxide 28 BUN 11 Creatinine 0.59 L Glucose 279 H Calcium 8.5 L Liver Function 01/16/19 Range/Units 01:03 Total Bilirubin 0.4 (0.3-1.0) mg/dL Direct Bilirubin 0.1 (0.0-0.2) mg/dL AST 173 H (13-39) Units/L ALT 337 H (7-52) Units/L Alkaline Phosphatase 139 H (34-104) Units/L Albumin 3.4 L (3.5-5.7) g/dL Urine 01/16/19 Range/Units 02:57 Urine Color Yellow (Yellow) Urine Clarity Clear (Clear) Urine pH 6.0 (5.0-8.0) pH Units Ur Specific [place] > 1.030 H (1.010-1.025) Urine Protein Negative (Neg-Trace) mg/dL Urine Glucose (UA) >=1000 H (Normal) mg/dL - Impressions ITS Impressions Chest X-Ray 01/15/19 22:56 IMPRESSION: No acute disease. D/ / Staci Calvert Cha, MD / Staci Calvert Cha, MD Interpreting Provider: Staci Calvert Cha, MD - Assessment and Plan (1) Edema Current Visit: Yes Status: Acute Assessment and plan: Pt presenting with new onset abdominal, scrotal and LE edema - bilateral LE have pitting edema, pain to palpation Differential including liver vs cardiac pathology - TSH WNL, not induced by hypothyroidism - UA negative for protein, unlikely due to nephrotic syndrome - pt noted to have elevated ALT/AST and hypoalbuminemia possible that this is liver related, including hepatitis vs autoimmune hepatitis - possible that this is induced from new onset cardiac failure Plan: - ECHO pending - 50g albumin IV - PT/INR pending - CBC/CMP with morning labs - troponin pending - lactic acid pending - urine protein/creatinine random and microalbumin pending - HbA1c pending - hepatitis profile pending - abdominal ultrasound pending - FEN: ADA diet - DVT proph: sq heparin - dispo: evaluation of elevated LFT, ECHO Qualifiers: Edema type: generalized Qualified Code(s): R60.1 - Generalized edema (2) Type 1 diabetes mellitus Current Visit: No Status: Chronic Assessment and plan: Pt with hx of T1DM diagnosed at 29yo - was on insulin pump - now on ISS - previous HbA1c 10.5% on 12/23/18 - MDSS, ADA diet, accuchecks Qualifiers: Diabetes mellitus complication status: with unspecified complications Qualified Code(s): E10.8 - Type 1 diabetes mellitus with unspecified complications (3) DVT prophylaxis Current Visit: Yes Status: Acute Assessment and plan: sq heparin (4) Tobacco abuse Current Visit: No Status: Chronic Assessment and plan: smokes 1ppd. chronic, counseled. (5) Liver enzyme elevation Current Visit: Yes Status: Acute Assessment and plan: AST 173, ALT 337, alk phos 139. Hepatitis profile pending. Pending abdominal ultrasound. (6) Peripheral neuropathy Current Visit: No Status: Chronic Assessment and plan: on gabapentin, con't home rx. chronic. Qualifiers: Peripheral neuropathy type: polyneuropathy, unspecified Qualified Code(s): G62.9 - Polyneuropathy, unspecified - Time Spent With Patient Total time spent is greater than 50% in coordination of care (as documented) at patient's floor/unit and/or counseling patient: 25 - 35 minutes <Enmanuel Snyder Ralph - Last Filed: 01/16/19 07:07> Date of Encounter: 01/16/19 Internal Medicine - H&P: HPI History of present illness: Mr. Iglesias is a 38 year old male All Systems PM: A 10-system review of systems was performed and is negative for pertinent findings except as documented above in the HPI. - Constitutional Vitals: Temp Pulse Resp BP Pulse Ox 98.2 F 80 14 119/74 94 01/16/19 03:27 01/16/19 02:53 01/16/19 03:27 01/16/19 03:27 01/16/19 03:27 Internal Med - H&P Results - Labs CBC & Chem 7: 01/16/19 04:47 01/16/19 04:47 Labs: Short CBC 01/16/19 01/16/19 Range/Units 01:03 04:47 WBC 5.8 5.4 (4.3-11.1) K/mcL Hgb 10.2 L 10.2 L (12.9-16.9) g/dL Hct 30.9 L 31.6 L (37.5-50.1) % Plt Count 166 190 (140-400) K/mcL Neutrophils # 2.5 (1.6-8.9) K/mcL BMP 01/16/19 01/16/19 01:03 04:47 Sodium 134 L 136 Potassium 3.8 4.0 Chloride 100 100 Carbon Dioxide 28 29 BUN 11 11 Creatinine 0.59 L 0.51 L Glucose 279 H 201 H Calcium 8.5 L 8.2 L Cardiac Enzymes 01/16/19 Range/Units 04:47 Troponin I < 0.03 (< 0.04) ng/mL Liver Function 01/16/19 01/16/19 Range/Units 01:03 04:47 Total Bilirubin 0.4 0.4 (0.3-1.0) mg/dL Direct Bilirubin 0.1 (0.0-0.2) mg/dL AST 173 H 148 H (13-39) Units/L ALT 337 H 304 H (7-52) Units/L Alkaline Phosphatase 139 H 136 H (34-104) Units/L Albumin 3.4 L 3.3 L (3.5-5.7) g/dL Urine 01/16/19 Range/Units 02:57 Urine Color Yellow (Yellow) Urine Clarity Clear (Clear) Urine pH 6.0 (5.0-8.0) pH Units Ur Specific [place] > 1.030 H (1.010-1.025) Urine Protein Negative (Neg-Trace) mg/dL Urine Glucose (UA) >=1000 H (Normal) mg/dL - Impressions ITS Impressions Chest X-Ray 01/15/19 22:56 IMPRESSION: No acute disease. D/ / Staci Calvert Cha, MD / Staci Calvert Cha, MD Interpreting Provider: Staci Calvert Cha, MD - Time Spent With Patient Total time spent is greater than 50% in coordination of care (as documented) at patient's floor/unit and/or counseling patient: - Attending Attestation I saw and evaluated the patient. I reviewed the residents note, performed my own physical examination and agree with findings and plan as documented in the residents note. Patient seen and exam ined on 01/16/19. Patient presents with lower extremity edema and scotal edema. Has pain with movement. Possible cardiac or hepatic source. Will try albumin to help with swelling, obtain liver and echocardiogram. Depending on results may try lasix as well. Strict I's&O's, daily weights. Patient poorly controlled type one diabetic, monitor sugars. Hep C antibody positive which helps explain elevated liver enzymes.
[2019-01-16 03:55] LABS: Hepatitis B Surface Antigen Nonreactive (Nonreactive)
[2019-01-16] MEDS ORDERED: Naloxone 0.4 MG/ML INJ IVP PRN (03:57)
[2019-01-16] MEDS ORDERED: D5% in Water 1,000 ML IVC PRN (03:57)
[2019-01-16] MEDS ORDERED: Dextrose Gel 15 GM/37.5 ML TUBE PO PRN ×2 (03:57)
[2019-01-16] MEDS ORDERED: *HR* Dextrose 50 % in Water (Syg) 50 ML SYRINGE IVP PRN (03:57)
[2019-01-16] MEDS ORDERED: Insulin LISPRO 300 UNITS/3 ML VIAL SQ SCH ×3 (04:00→14:33)
[2019-01-16 04:23] LABS: Hepatitis B Core IgM Nonreactive (Nonreactive)
[2019-01-16 04:25] LABS: Hepatitis A Antibody IgM Nonreactive (Nonreactive)
[2019-01-16 05:27] LABS: Creatinine,Urine 107 mg/dL; Microalbumin,Urine < 7 mg/L; Protein/Creatinine Ratio,Urine 0.08 mg/mg (0.00-0.20)
[2019-01-16 05:30] LABS: Hematocrit 31.6 % (37.5-50.1); Hemoglobin 10.2 g/dL (12.9-16.9); Mean Corpuscular HGB Conc 32.3 g/dL (31.6-35.5); Mean Corpuscular Hemoglobin 31.8 pg (28.0-33.3); Mean Corpuscular Volume 98.4 fL (83.0-100.0); Mean Platelet Volume 9.6 fL (9.4-12.4); Platelet Count 190 K/mcL (140-400); Red Blood Count 3.21 M/mcL (4.19-5.50); Red Cell Distribution Width 14.2 % (11.5-14.5)
[2019-01-16 05:33] LABS: Alanine Aminotransferase 304 Units/L (7-52); Albumin 3.3 g/dL (3.5-5.7); Albumin/Globulin Ratio 1.4 (1.1-2.2); Alkaline Phosphatase 136 Units/L (34-104); Aspartate Amino Transferase 148 Units/L (13-39); BUN/Creatinine Ratio 22 (6-26); Bilirubin,Total 0.4 mg/dL (0.3-1.0); Blood Urea Nitrogen 11 mg/dL (6-20); Calcium 8.2 mg/dL (8.6-10.3); Carbon Dioxide 29 mEq/L (23-29); Chloride 100 mEq/L (98-107); Chol/HDL Ratio 1.9 (0-4.9); Cholesterol 130 mg/dL (< 200); Globulin 2.3 g/dL (2.4-3.5); Glucose 201 mg/dL (70-105); HDL Cholesterol 68 mg/dL (40-59); LDL Cholesterol,Calculated 47 mg/dL (0-99); Osmolality,Calculated 287 (280-300); Sodium 136 mEq/L (136-145); Total Protein 5.6 g/dL (6.4-8.9); Triglycerides 75 mg/dL (< 150); eGFR For Non-African Americans > 60 (> 60)
[2019-01-16 05:40] LABS: Troponin I < 0.03 ng/mL (< 0.04)
[2019-01-16] MEDS: Albumin 25% 25gram/100mL 25 GM/100 ML IV.SOLN IVC SCH ×2 (05:44→08:40)
[2019-01-16] MEDS ORDERED: *HR* Heparin 5,000 UNIT/ML VIAL SQ SCH (06:00)
[2019-01-16 06:45] LABS: Hepatitis C Virus Antibody Reactive (Nonreactive)
[2019-01-16 08:28] LABS: Estimated Average Glucose 232 mg/dl; Hemoglobin A1C 9.7 %
[2019-01-16] MEDS: Insulin LISPRO 300 UNITS/3 ML VIAL SQ SCH ×2 (08:43→12:06)
[2019-01-16 12:00] VITALS: BP 133/83
[2019-01-16] MEDS ORDERED: Furosemide 20 MG/2 ML VIAL IVP ONE (12:05)
--- NOTE | 2019-01-16 12:10 | Event Note ---
Date of Encounter: 01/16/19 Time of Encounter: 09:50 Patient lying down in bed. Feels better but continues to have lower extremity swelling. Hepatitis viral panel positive for hep C antibody. This is a new diagnosis for the patient. Explained to him management of this disease. Awaiting liver ultrasound. Will start Lasix initially with a single dose 20 IV and assess response. Patient is receiving albumin. Also patient's mother was concerned about his mental status due to chronic depression and recent suicidal ideation 3-4 weeks back when he took 60 pills of Klonopin. Patient denies any suicidal ideation at this time. He also does not wish to see psychiatry. He was started on trazodone 3 weeks back and has been tolerating this medication well. No indication for involuntary psychiatric hold. We will continue to monitor liver function.
[2019-01-16] MEDS ORDERED: traZODone 50 MG TABLET PO PRN (12:15)
[2019-01-16] MEDS ORDERED: Gabapentin 100 MG CAPSULE PO SCH (15:00)
--- NOTE | 2019-01-16 17:46 | Discharge Summary ---
- NOTES TO OUTPATIENT PROVIDER Notes to Outpatient Provider: Patient hospitalized with anasarca/pedal edema and hepatitis. Hepatitis viral panel positive for hepatitis C antibody. However patient left the hospital AGAINST MEDICAL ADVICE before workup could be completed. Recommend outpatient follow-up. I sent a prescription for Lasix 20 mg daily for 5 days. He understands risks of not obtaining appropriate care but wishes to leave the hospital today. He has signed the necessary paperwork. He states that he will follow up with his primary care provider for further management. Orders not resulted at time of discharge: Pending orders 01/16/19 04:53 PT/INR [Prothrombin Time INR] [COAG] Routine 01/16/19 04:59 Lactic Acid Routine 01/16/19 16:15 Hepatitis C Virus Quant Routine Date of Encounter: 01/16/19 Time of Encounter: 17:40 - Discharge Diagnosis (1) Liver enzyme elevation Priority: Primary Status: Acute (2) Type 1 diabetes mellitus Priority: Secondary Status: Chronic Qualifiers: Diabetes mellitus complication status: with unspecified complications Qualified Code(s): E10.8 - Type 1 diabetes mellitus with unspecified complications (3) DVT prophylaxis Priority: Secondary Status: Acute (4) Tobacco abuse Priority: Secondary Status: Chronic (5) Edema Priority: Secondary Status: Acute Qualifiers: Edema type: generalized Qualified Code(s): R60.1 - Generalized edema (6) Peripheral neuropathy Priority: Secondary Status: Chronic Qualifiers: Peripheral neuropathy type: polyneuropathy, unspecified Qualified Code(s): G62.9 - Polyneuropathy, unspecified Hospital course: Mr. Iglesias is a 38 year old male Patient hospitalized with anasarca/pedal edema and hepatitis. Hepatitis viral panel positive for hepatitis C antibody. However patient left the hospital AGAINST MEDICAL ADVICE before workup could be completed. Recommend outpatient follow-up. I sent a prescription for Lasix 20 mg daily for 5 days. He understands risks of not obtaining appropriate care but wishes to leave the hospital today. He has signed the necessary paperwork. He states that he will follow up with his primary care provider for further management. Discharge discussed with: patient - Time Spent with Patient Total time spent providing and/or coordinating discharge services: - Discharge Medications Prescriptions: New Furosemide [Lasix] 40 mg PO DAILY #5 tablet Continued Insulin ASPART [NovoLOG] 0 unit SQ TID PRN PRN Reason: PER SLIDING SCALE Gabapentin [Neurontin] 100 mg PO TID Trazodone HCl 50 mg PO HS PRN #30 tablet PRN Reason: Sleep Home Medications: Insulin ASPART [NovoLOG] 0 unit SQ TID PRN 11/11/17 [History] Gabapentin [Neurontin] 100 mg PO TID 12/12/17 [History] Trazodone HCl 50 mg PO HS PRN #30 tablet 12/25/18 [Rx] Furosemide [Lasix] 40 mg PO DAILY #5 tablet 01/16/19 [Rx] Allergies/Adverse Reactions: Allergy/AdvReac Type Severity Reaction Status Date / Time Penicillins [PCN] Allergy Rash Verified 01/15/19 22:31 morphine AdvReac Anaphylaxis Verified 01/15/19 22:31 Date of admission: 01/16/19 02:31 Primary care physician: Narcisa Hummel, Consults: 01/16/19 04:06 Consult to Nutrition [CONS] Routine Comment: Consulting Provider: NUTRITION Reason for Dietary Consult: MST Score Discharging clinician: Cammy Branham Anticipated date of discharge: 01/16/19 - Constitutional Vitals: Temp Pulse Resp BP Pulse Ox 98.2 F 72 16 133/83 94 01/16/19 11:56 01/16/19 11:56 01/16/19 11:56 01/16/19 11:56 01/16/19 11:56 General appearance: Present: A&O X 3, answers questions appropriately Exam: . - Respiratory Respiratory exam: Present: CTAB. Absent: accessory muscle use, rales, rhonchi, wheezes - Cardiovascular Cardiovascular exam: Present: RRR, +S1, +S2. Absent: diastolic murmur, gallop, rubs, systolic murmur - Patient Status Disposition: Left Against Medical Advice Condition: Fair - Discharge Instructions Instructions: Diabetes Mellitus Type 2 in Adults (DC), Cellulitis (DC) Follow Up With: Narcisa Hummel PEG DRIVER [Primary Care Provider] - (As early as possible) - Diet and Activity Diet: low fat, low cholesterol, low salt diet
--- NOTE | 2019-01-16 21:27 | Electrocardiograph Report ---
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
== END 2019-01-16 17:26 | disposition left against medical advice (07) ==
LOC: 2NENU 22:25 → EMEROOARM 22:25 → SUATTDRO 01-16 02:31 → 2NENU 01-16 03:14
PROVIDERS: ADMIT Pediatrics; ATTEND Internal Medicine